=== PATIENT | female | born 1995 | race Caucasian/White ===

== ENCOUNTER 2017-03-24 16:50 | Emergency (ER) | payer OTHER ==
[2017-03-24] MEDS ORDERED: SODIUM CHLORIDE 0.9% 1,000 ML IV STA (17:25)
[2017-03-24] MEDS ORDERED: ACETAMINOPHEN TAB 500 MG TAB PO STA (17:25)
--- NOTE | 2017-03-24 17:31 | ED ---
General Adult HPI - General Chief complaint: ENT Stated complaint: Ear Ache, Headache, Congestion Time Seen by Provider: 03/24/17 17:19 Source: patient, RN notes reviewed Mode of arrival: ambulatory Limitations: no limitations - History of Present Illness Initial comments: 22-year-old female presents to the emergency department with a chief complaint of right ear sore throat congestion. Patient states she's been sick for about 2 -1/2-3 weeks now. Patient states it initially started when her daughter got ill and she thought she just had a virus she went to the Dr. and was told there is a virus. Patient states she continues to feel ill. Patient states now she is getting body aches and increased fatigue. They state that she's been sick for so long that they thought that they should be seen. She states she will follow-up O feverish on and off with this. Patient denies any vomiting or abdominal pain. Patient denies any changes in urination or bowel habits. - Related Data Home Medications Medication Instructions Recorded Confirmed Albuterol Inhaler [Ventolin 2 puff INHALATION RT-Q6H PRN 07/08/14 03/24/17 Inhaler] Acetaminophen Tab [Tylenol Tab] 1,000 mg PO Q6HR PRN 03/24/17 03/24/17 HYDROcodone/APAP 5-325MG [[place] 1 tab PO Q4HR PRN 03/24/17 03/24/17 5-325] Ibuprofen [Motrin] 600 mg PO Q6HR PRN 03/24/17 03/24/17 Previous Rx's Medication Instructions Recorded Amoxicillin 500 mg PO Q8H #21 capsule 03/24/17 Allergies Allergy/AdvReac Type Severity Reaction Status Date / Time bee pollen Allergy Severe Anaphylaxis Verified 03/24/17 17:29 walnut Allergy Severe Anaphylaxis Verified 03/24/17 17:29 medroxyprogesterone acetate AdvReac Nausea & Verified 03/24/17 17:29 [From Depo-Provera] Vomiting Review of Systems ROS Statement: Those systems with pertinent positive or pertinent negative responses have been documented in the HPI. ROS Other: All systems not noted in ROS Statement are negative. Past Medical History Past Medical History: Asthma Additional Past Medical History / Comment(s): current sinus infection, MISCARRIAGE in january History of Any Multi-Drug Resistant Organisms: None Reported Past Surgical History: Adenoidectomy, Ear Surgery, Tonsillectomy Past Psychological History: No Psychological Hx Reported Smoking Status: Never smoker Past Alcohol Use History: None Reported Past Drug Use History: None Reported General Exam - General Exam Comments Initial Comments: General exam: Alert, active, comfortable in no apparent distress Head: Normocephalic Eyes: Normal reaction of pupils, equal size, normal range of extraocular motion Ears: normal external ear canals, pink tympanic membranes with normal cone of light Nose: clear with pink turbinates Throat: no erythema or exudates with normal sized tonsils Neck: no masses, no nuchal rigidity Chest: no chest wall deformity Lungs: equal air entry with no crackles or wheeze CVS: S1 and S2 normal with no audible mumurs, regular rhythm Abdomen: no hepatosplenomegaly, normal bowel sounds, no guarding or rigidity Spine: no scoliosis or deformity Skin: no rashes Neurological: No focal deficits, tone is normal in all 4 extremities Limitations: no limitations Course Vital Signs 03/24/17 03/24/17 17:11 19:18 Temperature 99.0 F 97.8 F Pulse Rate 122 H 95 Respiratory 20 18 Rate Blood Pressure 120/88 105/60 O2 Sat by Pulse 97 98 Oximetry Medical Decision Making - Medical Decision Making 22-year-old female presents with chief complaint of congestion. At this time patient's lab work has been reviewed. This time there is a mildly elevated white blood cell count. There is some white blood cells in the urine. However patient's symptoms are more consistent with upper respiratory type infection. We discussed this and we'll start her on amoxicillin due to the length of time that she is now. We discussed return parameters and follow-up and also questions. He stated the Alex they're in agreement with plan. They will be discharged. - Lab Data Result diagrams: 03/24/17 17:55 03/24/17 17:55 Lab Results 03/24/17 03/24/17 03/24/17 Range/Units 17:55 17:55 17:55 WBC 13.0 H (4.0-11.0) k/uL RBC 5.26 (3.80-5.40) m/uL Hgb 13.5 (11.4-16.0) gm/dL Hct 43.5 (34.0-46.0) % MCV 82.6 (80.0-100.0) fL MCH 25.6 (25.0-35.0) pg MCHC 31.0 (31.0-37.0) g/dL RDW 14.1 (11.5-15.5) % Plt Count 271 (150-450) k/uL Neutrophils % 80 % Lymphocytes % 9 % Monocytes % 7 % Eosinophils % 3 % Basophils % 0 % Neutrophils # 10.4 H (1.3-7.7) k/uL Lymphocytes # 1.1 (1.0-4.8) k/uL Monocytes # 0.9 (0-1.0) k/uL Eosinophils # 0.4 (0-0.7) k/uL Basophils # 0.0 (0-0.2) k/uL Sodium (137-145) mmol/L Potassium (3.5-5.1) mmol/L Chloride (98-107) mmol/L Carbon Dioxide (22-30) mmol/L Anion Gap mmol/L BUN (7-17) mg/dL Creatinine (0.52-1.04) mg/dL Est GFR (MDRD) Af Amer (>60 ml/min/1.73 sqM) Est GFR (MDRD) Non-Af (>60 ml/min/1.73 sqM) Glucose (74-99) mg/dL Calcium (8.4-10.2) mg/dL Total Bilirubin (0.2-1.3) mg/dL AST (14-36) U/L ALT (9-52) U/L Alkaline Phosphatase (38-126) U/L Total Protein (6.3-8.2) g/dL Albumin (3.5-5.0) g/dL Urine Color Urine Appearance (Clear) Urine pH (5.0-8.0) Ur Specific [place] (1.001-1.035) Urine Protein (Negative) Urine Glucose (UA) (Negative) Urine Blood (Negative) Urine Nitrite (Negative) Urine Bilirubin (Negative) Urine Urobilinogen (<2.0) mg/dL Ur Leukocyte Esterase (Negative) Urine RBC (0-5) /hpf Urine WBC (0-5) /hpf Ur Squamous Epith Cells (0-4) /hpf Urine Mucus (None) /hpf Heterophile Antibody Negative (Negative) Influenza Type A RNA Not Detected (Not Detectd) Influenza Type B (PCR) Not Detected (Not Detectd) 03/24/17 03/24/17 Range/Units 17:55 18:58 WBC (4.0-11.0) k/uL RBC (3.80-5.40) m/uL Hgb (11.4-16.0) gm/dL Hct (34.0-46.0) % MCV (80.0-100.0) fL MCH (25.0-35.0) pg MCHC (31.0-37.0) g/dL RDW (11.5-15.5) % Plt Count (150-450) k/uL Neutrophils % % Lymphocytes % % Monocytes % % Eosinophils % % Basophils % % Neutrophils # (1.3-7.7) k/uL Lymphocytes # (1.0-4.8) k/uL Monocytes # (0-1.0) k/uL Eosinophils # (0-0.7) k/uL Basophils # (0-0.2) k/uL Sodium 140 (137-145) mmol/L Potassium 4.1 (3.5-5.1) mmol/L Chloride 102 (98-107) mmol/L Carbon Dioxide 24 (22-30) mmol/L Anion Gap 14 mmol/L BUN 12 (7-17) mg/dL Creatinine 0.66 (0.52-1.04) mg/dL Est GFR (MDRD) Af Amer >60 (>60 ml/min/1.73 sqM) Est GFR (MDRD) Non-Af >60 (>60 ml/min/1.73 sqM) Glucose 83 (74-99) mg/dL Calcium 9.7 (8.4-10.2) mg/dL Total Bilirubin 0.3 (0.2-1.3) mg/dL AST 26 (14-36) U/L ALT 32 (9-52) U/L Alkaline Phosphatase 146 H (38-126) U/L Total Protein 8.1 (6.3-8.2) g/dL Albumin 5.2 H (3.5-5.0) g/dL Urine Color Yellow Urine Appearance Cloudy H (Clear) Urine pH 6.0 (5.0-8.0) Ur Specific [place] 1.027 (1.001-1.035) Urine Protein Trace H (Negative) Urine Glucose (UA) Negative (Negative) Urine Blood Negative (Negative) Urine Nitrite Negative (Negative) Urine Bilirubin Negative (Negative) Urine Urobilinogen <2.0 (<2.0) mg/dL Ur Leukocyte Esterase Moderate H (Negative) Urine RBC 1 (0-5) /hpf Urine WBC 14 H (0-5) /hpf Ur Squamous Epith Cells 7 H (0-4) /hpf Urine Mucus Few H (None) /hpf Heterophile Antibody (Negative) Influenza Type A RNA (Not Detectd) Influenza Type B (PCR) (Not Detectd) - Radiology Data Radiology results: report reviewed, image reviewed Disposition Clinical Impression: Upper respiratory infection Disposition: HOME SELF-CARE Condition: Stable Instructions: Upper Respiratory Infection (ED) Additional Instructions: Please use medication as discussed. Please follow up with family doctor if symptoms have not improved over the next two days. Please return to the emergency room if your symptoms increase or worsen or for any other concerns. Prescriptions: Amoxicillin 500 mg PO Q8H #21 capsule Referrals: Enrique Mendez DO [Primary Care Provider] - 1-2 days Time of Disposition: 19:38
[2017-03-24 18:08] LABS: Basophils % (A) 0 %; CH 26.5; CHCM 32.3; Eosinophils # (A) 0.4 k/uL (0-0.7); Eosinophils % (A) 3 %; HCT 43.5 % (34.0-46.0); HDW 2.42; HGB 13.5 gm/dL (11.4-16.0); Luc % (Auto) 2; Lymphocytes # (A) 1.1 k/uL (1.0-4.8); Lymphocytes % (A) 9 %; MCH 25.6 pg (25.0-35.0); MCV 82.6 fL (80.0-100.0); Mean Platelet Volume 7.4; Monocytes # (A) 0.9 k/uL (0-1.0); Monocytes % (A) 7 %; Neutrophils # (A) 10.4 k/uL (1.3-7.7); Neutrophils % (A) 80 %; RBC 5.26 m/uL (3.80-5.40); RDW 14.1 % (11.5-15.5); WBC (Perox) 13.26
[2017-03-24 18:24] LABS: ALT 32 U/L (9-52); AST 26 U/L (14-36); Alkaline Phosphatase 146 U/L (38-126); Anion Gap 14 mmol/L; Blood Urea Nitrogen 12 mg/dL (7-17); Calcium 9.7 mg/dL (8.4-10.2); Carbon Dioxide 24 mmol/L (22-30); Chloride 102 mmol/L (98-107); Glucose 83 mg/dL (74-99); Non-African American GFR(MDRD) >60 (>60 ml/min/1.73 sqM); Potassium 4.1 mmol/L (3.5-5.1); Sodium 140 mmol/L (137-145); Total Bilirubin 0.3 mg/dL (0.2-1.3); Total Protein 8.1 g/dL (6.3-8.2)
--- NOTE | 2017-03-24 18:45 | XR ---
EXAMINATION TYPE: XR chest 2V DATE OF EXAM: 03/24/2017 COMPARISON: 01/31/2016 HISTORY: Cough and congestion TECHNIQUE: Frontal and lateral views of the chest are obtained. FINDINGS: Heart and mediastinum are normal. Lungs are clear. Diaphragm is normal. Bony thorax appear s normal. IMPRESSION: Normal chest. No change.
[2017-03-24 19:18] VITALS: BP 105/60; PULSE 95; RESP 18; TEMP 97.8
[2017-03-24 19:22] LABS: Appearance,Urine Cloudy (Clear); Bilirubin,Urine Negative (Negative); Glucose,Urine (UA) Negative (Negative); Ketones,Urine 2+ (Negative); Leukocyte Esterase,Urine Moderate (Negative); Mucus,Urine Few /hpf; Nitrite,Urine Negative (Negative); Particle Count 8234; Protein,Urine Trace (Negative); RBC,Urine 1 /hpf (0-5); Specific Gravity,Urine 1.027 (1.001-1.035); Squamous Epithelial Cell,Urine 7 /hpf (0-4); UA Billing (MACRO vs. MICRO) MICRO; Urobilinogen,Urine <2.0 mg/dL (<2.0); WBC,Urine 14 /hpf (0-5)
== END 2017-03-24 20:02 | disposition home or self-care (01) ==
LOC: EC 16:50
DX: J06.9 Acute upper respiratory infection, unspecified (principal); D72.829 Elevated white blood cell count, unspecified; R82.99 Other abnormal findings in urine; Z88.8 Allergy status to other drugs, medicaments and biological substances; Z91.018 Allergy to other foods; Z91.030 Bee allergy status; Z98.890 Other specified postprocedural states
CPT/HCPCS: 36415; 71020; 80053; 81001; 85025; 86308; 87040; 87086; 87502; 96360; 99284

== ENCOUNTER 2017-03-25 20:27 | Inpatient (IN) | payer OTHER ==
[2017-03-25] MEDS ORDERED: ACETAMINOPHEN TAB 500 MG TAB PO STA (20:50)
[2017-03-25] MEDS ORDERED: SODIUM CHLORIDE 0.9% 1,000 ML IV STA ×2 (20:50→23:20)
[2017-03-25] MEDS ORDERED: IBUPROFEN 400 MG TAB PO STA (20:50)
[2017-03-25 21:32] LABS: Basophils # (A) 0.1 k/uL (0-0.2); Basophils % (A) 1 %; CH 25.5; CHCM 32.2; Eosinophils % (A) 0 %; HCT 37.1 % (34.0-46.0); HGB 12.3 gm/dL (11.4-16.0); Luc # (Auto) 0.39; Luc % (Auto) 3; Lymphocytes # (A) 1.2 k/uL (1.0-4.8); Lymphocytes % (A) 9 %; MCH 26.3 pg (25.0-35.0); MCHC 33.1 g/dL (31.0-37.0); MCV 79.5 fL (80.0-100.0); Mean Platelet Volume 7.1; Monocytes # (A) 1.4 k/uL (0-1.0); Monocytes % (A) 10 %; Neutrophils # (A) 10.7 k/uL (1.3-7.7); Neutrophils % (A) 78 %; RBC 4.66 m/uL (3.80-5.40); RDW 13.4 % (11.5-15.5); WBC 13.7 k/uL (4.0-11.0); WBC (Perox) 13.53
[2017-03-25 21:40] LABS: ALT 23 U/L (9-52); AST 20 U/L (14-36); Alkaline Phosphatase 123 U/L (38-126); Anion Gap 14 mmol/L; Blood Urea Nitrogen 11 mg/dL (7-17); Calcium 9.1 mg/dL (8.4-10.2); Carbon Dioxide 21 mmol/L (22-30); Chloride 106 mmol/L (98-107); Glucose 90 mg/dL (74-99); Non-African American GFR(MDRD) >60 (>60 ml/min/1.73 sqM); Potassium 3.8 mmol/L (3.5-5.1); Sodium 141 mmol/L (137-145); Total Bilirubin 0.4 mg/dL (0.2-1.3); Total Protein 6.5 g/dL (6.3-8.2)
[2017-03-25] MEDS ORDERED: RX INFO: IV CONTRAST WAS GIVEN 1 EACH MISC MISCELLANE PRN (21:41)
--- NOTE | 2017-03-25 22:09 | ED ---
General Adult HPI - General Source: patient, RN notes reviewed Mode of arrival: ambulatory Limitations: no limitations <Maisha Ovalle - Last Filed: 03/25/17 23:24> <Bruce Jain - Last Filed: 03/25/17 23:34> - General Chief complaint: Fever Stated complaint: fever Time Seen by Provider: 03/25/17 20:42 - History of Present Illness Initial comments: 22-year-old female presents to the emergency department with a chief complaint of fever. Patient has had this fever for the past few days. She was seen here yesterday some antibiotics. She states the fever came back today. It's been as high as 103. They've been feeding with Tylenol. Patient states she just has diffuse body aches. She has not had any cough cold or runny nose. She has had a little bit of a headache with this as well. She did have some nasal congestion her daughter was ill so she thought maybe she just had a virus but she just is not getting any better. They were concerned due to the fever so they thought they should be evaluated.Patient denies any recent shortness of breath, chest pain, abdominal pain, nausea vomiting, numbness or tingling, dysuria or hematuria, constipation or diarrhea, headaches or visual changes, or any other current symptoms. (Maisha Ovalle) - Related Data Home Medications Medication Instructions Recorded Confirmed Albuterol Inhaler [Ventolin 2 puff INHALATION RT-Q6H PRN 07/08/14 03/24/17 Inhaler] Acetaminophen Tab [Tylenol Tab] 1,000 mg PO Q6HR PRN 03/24/17 03/24/17 HYDROcodone/APAP 5-325MG [[place] 1 tab PO Q4HR PRN 03/24/17 03/24/17 5-325] Ibuprofen [Motrin] 600 mg PO Q6HR PRN 03/24/17 03/24/17 Previous Rx's Medication Instructions Recorded Amoxicillin 500 mg PO Q8H #21 capsule 03/24/17 Allergies Allergy/AdvReac Type Severity Reaction Status Date / Time bee pollen Allergy Severe Anaphylaxis Verified 03/24/17 17:29 walnut Allergy Severe Anaphylaxis Verified 03/24/17 17:29 medroxyprogesterone acetate AdvReac Nausea & Verified 03/24/17 17:29 [From Depo-Provera] Vomiting Review of Systems ROS Other: All systems not noted in ROS Statement are negative. <Maisha Ovalle - Last Filed: 03/25/17 23:24> ROS Other: All systems not noted in ROS Statement are negative. <Bruce Jain - Last Filed: 03/25/17 23:34> ROS Statement: Those systems with pertinent positive or pertinent negative responses have been documented in the HPI. Past Medical History Past Medical History: Asthma Additional Past Medical History / Comment(s): current sinus infection, MISCARRIAGE in january History of Any Multi-Drug Resistant Organisms: None Reported Past Surgical History: Adenoidectomy, Ear Surgery, Tonsillectomy Additional Past Surgical History / Comment(s): ovarian cyst removed, D&C Past Psychological History: No Psychological Hx Reported Smoking Status: Never smoker Past Alcohol Use History: None Reported Past Drug Use History: None Reported <Maisha Ovalle - Last Filed: 03/25/17 23:24> General Exam Limitations: no limitations <Maisha Ovalle - Last Filed: 03/25/17 23:24> <Bruce Jain - Last Filed: 03/25/17 23:34> - General Exam Comments Initial Comments: General: The patient is awake and alert, in no distress, and does not appear acutely ill. Eye: Pupils are equal, round and reactive to light, extra-ocular movements are intact; there is normal conjunctiva bilaterally. No signs of icterus. Ears, nose, mouth and throat: There are moist mucous membranes and no oral lesions. Neck: The neck is supple, there is no tenderness. Cardiovascular: There is a regular rate and rhythm. No murmur, rub or gallop is appreciated. Respiratory: Lungs are clear to auscultation, respirations are non-labored, breath sounds are equal. No wheezes, stridor, rales, or rhonchi. Gastrointestinal: Soft, non-distended, non-tender abdomen without masses or organomegaly noted. There is no rebound or guarding present. No CVA tenderness. Bowel sounds are unremarkable. Back: There is no tenderness to palpation in the midline. There is no obvious deformity. No rashes noted. Musculoskeletal: Normal ROM, no tenderness, There is no pedal edema. There is no calf tenderness or swelling. Sensation intact. Pulses equal bilaterally 2+. Neurological: CN II-XII intact, There are no obvious motor or sensory deficits. Coordination appears grossly intact. Speech is normal. Skin: Skin is warm and dry and no rashes or lesions are noted. Psychiatric: Cooperative, appropriate mood & affect, normal judgment. (Maisha Ovalle) Medical Decision Making - Lab Data Result diagrams: 03/25/17 21:10 03/25/17 21:10 <Maisha Ovalle - Last Filed: 03/25/17 23:24> - Lab Data Result diagrams: 03/25/17 21:10 03/25/17 21:10 <Bruce Jain - Last Filed: 03/25/17 23:34> - Medical Decision Making 22-year-old female presents emergency room chief complaint of fever and total body aches. At this time patient's urine for x-ray does show some contamination. Patient's workup was otherwise not show any acute findings for the patient's fever. This time there is suspicion for possible viral. We are pending a urine culture. We'll admit the patient with IV Rocephin we will continue her care patient. Patient is negative plan all questions have been answered. She will be admitted at this time. (Maisha Ovalle) Medical decision-making. The patient has had on-again off-again complaints from upper respiratory to low back pain. Yesterday she had some evidence of urinary tract infection. The patient requested an antibiotic that she get for free she was placed on amoxicillin. She returns today because of continued discomfort. The patient's been sick for approximately 3 weeks. The plant this time is for the patient be admitted with diagnosis of pyelonephritis. She's been started on Rocephin. Examination of this time finds throat to be clear no cervical lymphadenopathy no headache no meningeal irritation. Chest is clear heart within normal limits. No murmur. Abdomen benign. Patient is mildly diaphoretic complains of mild ache and pain to her body. Influenza test done yesterday was negative. No skin rashes. Dr. Jain Case discussed Dr. La, patient admitted his service. Dr. Jain (Bruce Jain) - Lab Data Lab Results 03/25/17 03/25/17 03/25/17 Range/Units 20:51 21:10 21:10 WBC 13.7 H (4.0-11.0) k/uL RBC 4.66 (3.80-5.40) m/uL Hgb 12.3 (11.4-16.0) gm/dL Hct 37.1 (34.0-46.0) % MCV 79.5 L (80.0-100.0) fL MCH 26.3 (25.0-35.0) pg MCHC 33.1 (31.0-37.0) g/dL RDW 13.4 (11.5-15.5) % Plt Count 236 (150-450) k/uL Neutrophils % 78 % Lymphocytes % 9 % Monocytes % 10 % Eosinophils % 0 % Basophils % 1 % Neutrophils # 10.7 H (1.3-7.7) k/uL Lymphocytes # 1.2 (1.0-4.8) k/uL Monocytes # 1.4 H (0-1.0) k/uL Eosinophils # 0.0 (0-0.7) k/uL Basophils # 0.1 (0-0.2) k/uL Sodium 141 (137-145) mmol/L Potassium 3.8 (3.5-5.1) mmol/L Chloride 106 (98-107) mmol/L Carbon Dioxide 21 L (22-30) mmol/L Anion Gap 14 mmol/L BUN 11 (7-17) mg/dL Creatinine 0.60 (0.52-1.04) mg/dL Est GFR (MDRD) Af Amer >60 (>60 ml/min/1.73 sqM) Est GFR (MDRD) Non-Af >60 (>60 ml/min/1.73 sqM) Glucose 90 (74-99) mg/dL Plasma Lactic Acid Edmundo 0.6 L (0.7-2.0) mmol/L Calcium 9.1 (8.4-10.2) mg/dL Total Bilirubin 0.4 (0.2-1.3) mg/dL AST 20 (14-36) U/L ALT 23 (9-52) U/L Alkaline Phosphatase 123 (38-126) U/L C-Reactive Protein >90.0 H (<10.0) mg/L Total Protein 6.5 (6.3-8.2) g/dL Albumin 4.1 (3.5-5.0) g/dL Disposition Time of Disposition: 23:25 Decision Date: 03/25/17 Decision Time: 23:25 <Maisha Ovalle - Last Filed: 03/25/17 23:24> <Bruce Jain - Last Filed: 03/25/17 23:34> Clinical Impression: Acute pyelonephritis Disposition: ADMITTED IP TO THIS [facility] Condition: Stable Referrals: Enrique Mendez DO [Primary Care Provider] - 1-2 days
--- NOTE | 2017-03-25 22:51 | CT ---
EXAM: CT Abdomen and Pelvis With Intravenous Contrast CLINICAL HISTORY: Reason: Pain TECHNIQUE: Axial computed tomography images of the abdomen and pelvis with intravenous contrast. DLP is 991 mGy-cm. 100 mL of Omni [address] was administered [address]. [address] CT exam was performed using one or more of the following dose reduction techniques: automated exposure control, adjustment of the mA and/or kV according to patient size, and/or use of iterative reconstruction technique. COMPARISON: No relevant prior studies available. FINDINGS: Lower thorax: No acute findings. ABDOMEN: Liver: Unremarkable. No mass. Gallbladder and bile ducts: Unremarkable. No calcified stones. No ductal dilation. Pancreas: Unremarkable. No mass. No ductal dilation. Spleen: Unremarkable. No splenomegaly. Adrenals: Unremarkable. No mass. Kidneys and ureters: Unremarkable. No solid mass. No hydronephrosis. Stomach and bowel: Unremarkable. No obstruction. No mucosal thickening. Appendix: No findings to suggest acute appendicitis. PELVIS: Bladder: Unremarkable. No mass. Reproductive: Unremarkable as visualized. ABDOMEN and PELVIS: Intraperitoneal space: Unremarkable. No free air. No significant fluid collection. Bones/joints: No acute fracture. No dislocation. Soft tissues: Unremarkable. Vasculature: Unremarkable. No abdominal aortic aneurysm. Lymph nodes: Unremarkable. No enlarged lymph nodes. IMPRESSION: Normal abdomen and pelvis CT.
[2017-03-25] MEDS ORDERED: NALOXONE 0.4 MG/ML 1 ML VIAL IV PRN (23:25)
[2017-03-26] MEDS: SODIUM CHLORIDE 0.9% 1,000 ML IV SCH ×3 (00:06→20:31)
[2017-03-26] MEDS: IBUPROFEN 400 MG TAB PO PRN ×2 (06:43→13:30)
[2017-03-26 07:10] LABS: Basophils % (A) 0 %; CH 26.1; CHCM 30.7; Eosinophils # (A) 0.1 k/uL (0-0.7); Eosinophils % (A) 1 %; HCT 38.4 % (34.0-46.0); HDW 2.42; HGB 11.6 gm/dL (11.4-16.0); Hypochromasia Slight; Luc % (Auto) 3; Lymphocytes # (A) 1.5 k/uL (1.0-4.8); Lymphocytes % (A) 12 %; MCH 25.8 pg (25.0-35.0); MCHC 30.3 g/dL (31.0-37.0); Mean Platelet Volume 7.5; Monocytes # (A) 1.2 k/uL (0-1.0); Monocytes % (A) 10 %; Neutrophils # (A) 9.2 k/uL (1.3-7.7); Neutrophils % (A) 74 %; RBC 4.49 m/uL (3.80-5.40); RDW 14.2 % (11.5-15.5); WBC 12.4 k/uL (4.0-11.0)
[2017-03-26 07:22] LABS: MCV 85.4 fL (80.0-100.0)
[2017-03-26] MEDS: ONDANSETRON 4 MG/2 ML VIAL IVP PRN (07:24)
[2017-03-26 07:27] LABS: ALT 17 U/L (9-52); AST 20 U/L (14-36); Alkaline Phosphatase 110 U/L (38-126); Anion Gap 12 mmol/L; Blood Urea Nitrogen 8 mg/dL (7-17); Calcium 8.6 mg/dL (8.4-10.2); Carbon Dioxide 17 mmol/L (22-30); Chloride 112 mmol/L (98-107); Glucose 52 mg/dL (74-99); Non-African American GFR(MDRD) >60 (>60 ml/min/1.73 sqM); Potassium 3.9 mmol/L (3.5-5.1); Sodium 141 mmol/L (137-145); Total Bilirubin 0.4 mg/dL (0.2-1.3); Total Protein 5.6 g/dL (6.3-8.2)
[2017-03-26] MEDS: HYDROcodone/APAP 5-325MG 1 EACH TAB PO PRN ×2 (08:10→15:34)
[2017-03-26] MEDS: ACETAMINOPHEN TAB 325 MG TAB PO PRN ×2 (11:15→20:26)
[2017-03-26 12:16] LABS: C Reactive Protein 153.8 mg/L (<10.0)
[2017-03-26] MEDS ORDERED: VANCOMYCIN 1,000 MG in SODIUM CHLORIDE 0.9% 250 ML IVPB STA (12:51)
--- NOTE | 2017-03-26 13:14 | CT ---
EXAMINATION TYPE: CT brain wo con DATE OF EXAM: 03/26/2017 COMPARISON: NONE HISTORY: Severe FIORE, possible meningitis CT DLP: 1071.7 mGycm. Automated Exposure Control for Dose Reduction was Utilized. TECHNIQUE: CT scan of the head is performed without contrast. FINDINGS: There is no acute intracranial hemorrhage, mass effect, or midline shift identified. The ventricles and sulci are within normal limits in size. The globes are intact and the visualized sin uses are remarkable for inflammatory change involving the ethmoids, sphenoid sinus, cerumen likely pr esent in the external auditory canals.. IMPRESSION: No acute intracranial hemorrhage, mass effect, or midline shift is seen.
[2017-03-26] MEDS ORDERED: fentaNYL (PF) 50 MCG/ML 2 ML AMP IVP ONE ×2 (14:40)
[2017-03-26] MEDS ORDERED: MIDAZOLAM 2 MG/2 ML VIAL IVP ONE (14:40)
[2017-03-26] MEDS ORDERED: IV FLUID CONTINUATION 1,000 ML IV ONE (14:53)
--- NOTE | 2017-03-26 14:55 | P.PCN ---
Date of Procedure: 03/26/17 Preoperative Diagnosis: Postoperative Diagnosis: Procedure(s) Performed: Procedure=1-lumbar puncture . Preoperative diagnoses= meningitis Postoperative diagnosis= meningitis Anesthesia= IV sedation with Versed 2 mg and fentanyl 100 mcg ,and local lidocaine infiltration 1% 2 mL for skin and subcu infiltration. Condition= gaurded Complications=none. Indication for the procedure= patient with a history of fever ,and total body aches, and headache, symptoms suggestive of meningitis, and she was referred to have a lumbar puncture for diagnostic study procedure risk and benefits and alternatives discussed with the patient and she agreed with the preceding, Description of the procedure= patient in the procedure room sitting position and monitors applied, the back prepped with chlorhexidine -3, sterile technique , local infiltration of the skin and subcu interstitial with lidocaine 1% 2 mL, then 22-gauge quickie Needle advanced slowly at L4 5 interlaminar space, the cerebrospinal fluid was clear, and no heme no paresthesia, a total of 10 mL of clear cerebrospinal fluid collected in 4 different tubes, the needle removed , Band-Aid applied , patient tolerated the procedure well without any complications, and further management as per her neurologist Implants: Indications for Procedure: Operative Findings: Description of Procedure:
[2017-03-26] MEDS: cefTRIAXone 2,000 MG in SODIUM CHLORIDE 0.9% 100 ML IVPB SCH ×2 (15:34→20:49)
[2017-03-26 15:39] LABS: Appearance,CSF Clear
[2017-03-26 15:44] LABS: Glucose,CSF 66 mg/dL (40-70)
[2017-03-26] MEDS ORDERED: KETOROLAC 30 MG/ML 1 ML VIAL IVP STA (16:34)
--- NOTE | 2017-03-26 16:34 | P.HPIM ---
History of Present Illness H&P Date: 03/26/17 [place] 22-year-old female who was in good health until 5 days and will come to the hospital with complaints of generalized weakness. Patient did have some urinary urgency at that time patient was diagnosed with a pyelonephritis was started on amoxicillin and discharged home patient continues to have intermittent fevers had a T-max oh 103 Fahrenheit came in to the hospital with ongoing care. Patient was noted to have a group B strep infection in the urine. Patient really denies having any bilateral flank pain States to have headaches photophobia generalized weakness. Patient does have a 9-month-old child however denies having any exposure to any sick contacts No recent travel history is reported No IV drug use is reported Is up-to-date immunizations Patient was noted to have a significantly elevated CRP states that she has had a headache for the last 3 days dull diffuse no significant change in vision is reported However reports photophobia at this time Review of Systems All systems: negative (Noted in HPI) Past Medical History Past Medical History: Asthma Additional Past Medical History / Comment(s): Current sinus infection, MISCARRIAGE in january, and 9 months post-. History of Any Multi-Drug Resistant Organisms: None Reported Past Surgical History: Adenoidectomy, Ear Surgery, Tonsillectomy Additional Past Surgical History / Comment(s): ovarian cyst removed, D&C Past Psychological History: No Psychological Hx Reported Smoking Status: Never smoker Past Alcohol Use History: None Reported Past Drug Use History: None Reported - Past Family History Mother Family Medical History: Skin Disorder Additional Family Medical History / Comment(s): Scleroderma, Morphea Medications and Allergies Home Medications Medication Instructions Recorded Confirmed Type Albuterol Inhaler [Ventolin 2 puff INHALATION RT-Q6H PRN 07/08/14 03/26/17 History Inhaler] Acetaminophen Tab [Tylenol Tab] 1,000 mg PO Q6HR PRN 03/24/17 03/26/17 History Ibuprofen [Motrin] 600 mg PO Q6HR PRN 03/24/17 03/26/17 History Allergies Allergy/AdvReac Type Severity Reaction Status Date / Time bee pollen Allergy Severe Anaphylaxis Verified 03/26/17 08:05 walnut Allergy Severe Anaphylaxis Verified 03/26/17 08:05 latex Allergy Rash/Hives Verified 03/26/17 08:05 medroxyprogesterone acetate AdvReac Nausea & Verified 03/26/17 08:05 [From Depo-Provera] Vomiting Physical Exam Vitals: Vital Signs Temp Pulse Pulse Pulse Resp BP BP 03/26/17 15:24 101.7 F H 104 H 20 119/70 03/26/17 15:15 93 14 110/61 03/26/17 15:03 92 14 108/59 03/26/17 14:54 98 F 97 14 109/59 03/26/17 14:35 110 H 22 118/66 03/26/17 13:17 102.6 F H 112 H 19 93/58 03/26/17 09:22 97.8 F 92 19 110/61 03/26/17 02:15 97.3 F L 76 16 101/62 03/26/17 00:30 97.8 F 74 18 108/74 03/25/17 23:19 98.8 F 79 16 107/60 03/25/17 21:52 99.3 F 94 14 109/56 03/25/17 20:36 101.4 F H 121 H 20 108/60 Pulse Ox 03/26/17 15:24 100 03/26/17 15:15 94 L 03/26/17 15:03 95 03/26/17 14:54 94 L 03/26/17 14:35 96 03/26/17 13:17 100 03/26/17 09:22 98 03/26/17 02:15 98 03/26/17 00:30 99 03/25/17 23:19 98 03/25/17 21:52 96 03/25/17 20:36 97 Intake and Output 03/26/17 03/26/17 03/26/17 06:59 14:59 22:59 Intake Total 2440 300 Output Total 800 Balance 2440 -500 Intake: IV 300 Amount of Fluid Infused ( 1200 ml) Intake, IV Titration 1000 Amount Sodium Chloride 0.9% 1, 1000 000 ml @ 999 mls/hr IV . Q1H1M [facility] Rx#:[id number] Oral 240 Output: Urine 800 Other: Voiding Method Toilet # Voids 1 400 Weight 58 kg Physical exam Gen. appearance oriented 3 in no distress Neck is supple no JVD Lungs good air entry clear to auscultation no rhonchi or wheezing Heart S1-S2 heard regular rate and rhythm no murmurs appreciated Abdomen is soft nontender no organomegaly bowel sounds are intact Neurologically cranial nerves II-12 grossly intact some neck stiffness is noted. kernigs Is positive Skin no abnormalities appreciated Results CBC & Chem 7: 03/26/17 06:52 03/26/17 06:52 Labs: Abnormal Lab Results - Last 24 Hours (Table) 03/25/17 03/25/17 03/25/17 Range/Units 20:51 21:10 21:10 WBC 13.7 H (4.0-11.0) k/uL MCV 79.5 L (80.0-100.0) fL MCHC (31.0-37.0) g/dL Neutrophils # 10.7 H (1.3-7.7) k/uL Monocytes # 1.4 H (0-1.0) k/uL Chloride (98-107) mmol/L Carbon Dioxide 21 L (22-30) mmol/L Glucose (74-99) mg/dL Plasma Lactic Acid Edmundo 0.6 L (0.7-2.0) mmol/L C-Reactive Protein 153.8 H (<10.0) mg/L Total Protein (6.3-8.2) g/dL Albumin (3.5-5.0) g/dL 03/26/17 03/26/17 Range/Units 06:52 06:52 WBC 12.4 H (4.0-11.0) k/uL MCV (80.0-100.0) fL MCHC 30.3 L (31.0-37.0) g/dL Neutrophils # 9.2 H (1.3-7.7) k/uL Monocytes # 1.2 H (0-1.0) k/uL Chloride 112 H (98-107) mmol/L Carbon Dioxide 17 L (22-30) mmol/L Glucose 52 L (74-99) mg/dL Plasma Lactic Acid Edmundo (0.7-2.0) mmol/L C-Reactive Protein (<10.0) mg/L Total Protein 5.6 L (6.3-8.2) g/dL Albumin 3.4 L (3.5-5.0) g/dL Thrombosis Risk Factor Assmnt - Choose All That Apply Any of the Below Risk Factors Present?: No Other Risk Factors: No Other congenital or acquired thrombophilia - If yes, enter type in comment: No Thrombosis Risk Factor Assessment Level: Very Low Risk Assessment and Plan Plan: #1 fever of unknown origin Rule out meningitis Plan Patient was partially treated with antibiotics We'll obtain a stat spinal tap We'll be started on Rocephin 2 g every 12 hours and vancomycin Stat computed tomography scan of the head will be done Pain control No significant lymphadenopathy is appreciated However a flu was done which is negative We'll obtain a heterophile antibody as well We'll have ID evaluate the patient if patient does not improve.
[2017-03-26] MEDS: HYDROmorphone 1 MG/ML 1 ML SYRINGE IVP PRN ×2 (16:38→20:27)
[2017-03-27] MEDS: HYDROmorphone 1 MG/ML 1 ML SYRINGE IVP PRN ×6 (00:04→22:51)
[2017-03-27] MEDS: VANCOMYCIN 1,000 MG in SODIUM CHLORIDE 0.9% 250 ML IVPB SCH ×2 (00:07→08:53)
[2017-03-27] MEDS: HYDROcodone/APAP 5-325MG 1 EACH TAB PO PRN ×2 (02:19→10:06)
[2017-03-27] MEDS: diphenhydrAMINE 25 MG CAP PO PRN ×4 (02:19→22:57)
[2017-03-27 04:29] LABS: Appearance,Urine Clear (Clear); Bilirubin,Urine Negative (Negative); Glucose,Urine (UA) Negative (Negative); Ketones,Urine 3+ (Negative); Leukocyte Esterase,Urine Negative (Negative); Nitrite,Urine Negative (Negative); Protein,Urine Trace (Negative); Specific Gravity,Urine 1.019 (1.001-1.035); UA Billing (MACRO vs. MICRO) CHEM; Urobilinogen,Urine <2.0 mg/dL (<2.0)
[2017-03-27] MEDS: IBUPROFEN 400 MG TAB PO PRN ×2 (06:05)
[2017-03-27] MEDS: SODIUM CHLORIDE 0.9% 1,000 ML IV SCH ×2 (09:00→18:53)
[2017-03-27] MEDS: ONDANSETRON 4 MG/2 ML VIAL IVP PRN ×2 (09:21→17:50)
[2017-03-27] MEDS: cefTRIAXone 2,000 MG in SODIUM CHLORIDE 0.9% 100 ML IVPB SCH (11:06)
[2017-03-27] MEDS ORDERED: DIAZEPAM 2 MG TAB PO STA (11:26)
[2017-03-27] MEDS: KETOROLAC 30 MG/ML 1 ML VIAL IVP SCH ×2 (12:50→18:45)
--- NOTE | 2017-03-27 20:03 | P.PN ---
<Arielle Cabrera - Last Filed: 03/27/17 19:42> Progress Note - Text DATE OF SERVICE: 03/27/2017 PRESENTING COMPLAINT: Fever/headache/back pain INTERVAL HISTORY: 22-year-old female presents general malaise weakness with fever, has had it for the past few days. Had some urinary urgency diagnosed with pyelonephritis started on amoxicillin and discharged home, however continues to have intermittent fevers with T-max of 103 Fahrenheit. Spinal tap performed on 03/26 with initiation of Rocephin and vancomycin. 03/27/2017: Patient seen in follow-up, complains of excruciating lower lumbar and sacral back pain, roughly about where they did a lumbar puncture. Patient does also complain of a severe headache and is unable to move off of the bed screaming and crying in pain. We consulted anesthesia, and orthospine for their input. Patient is tolerating her diet eating about 50%, unable to ambulate without assistance due to the pain. Last BM was 03/25/2017 REVIEW OF SYSTEMS: Done for constitutional ,cardiovascular, GI, pulmonary with relevant findings as above. CURRENT MEDICATIONS [place], ceftriaxone, diphenhydramine, Dilaudid, Motrin, Toradol, Zofran. PHYSICAL EXAM VITAL SIGNS: Temperature 97.7, pulse 74, respiratory rate 20, blood pressure 108/74, oxygen saturation 99% on room air. GENERAL APPEARANCE: Lying in bed, in distress looks uncomfortable. EYES: Pupils equal. Conjunctiva normal. NECK: JVD not raised. Mass not palpable. RESPIRATORY: Respiratory effort normal. Lungs clear to auscultation. CARDIOVASCULAR: First and second sounds normal. No edema. ABDOMEN: Soft. Liver and spleen not palpable. No tenderness. No mass palpable. PSYCHIATRY: Alert and oriented x3. Mood and affect tearful, in pain. MUSCULOSKELETAL: Tenderness noted to the spinal column at the lumbar and sacral regions, directly to the spine as well as the areas on either side no swelling noted. General body aches. NEUROLOGIC: No numbness or tingling to the extremities, unable to do straight leg raises bilaterally without pain. Movement of legs and arms creates spinal pain that moves into the head. INVESTIGATIONS: Urine culture: Pending Urinalysis: Trace protein, positive urine ketones CSF fluid: No organisms seen, no white blood cells seen. No growth after 24 hours. ASSESSMENT: -Fever of unknown origin -Viral or bacterial meningitis, cultures negative -Lumbar/sacral spine pain PLAN: Cultures are negative thus far, infectious disease is following, continue antibiotic therapy. No fever since 3:00 yesterday however has had several low- grade fevers. Continues to have back pain and head pain consults to orthospine , and anesthesia in light of the recent lumbar puncture. We'll continue to follow closely TOW DRIVER statement: Patient was seen and examined by nurse practitioner Arielle Cabrera and all elements of the case discussed with attending Dr. Echols <Mo Echols - Last Filed: 03/28/17 21:49> Progress Note - Text Date of service 03/27/2017 Attending note: Patient was seen and examined by me. Discussed with my nurse practitioner Ms. Cabrera. This patient has not been feeling well for a few days. Patient is a 9-month- old baby had been sick got better then patient became sick. Patient is an asthmatic. Has not been taking her Singulair and uses inhalers intermittently. Patient works at [employer]. Started off with feeling stuffy, ear symptoms some headaches. Got a bit better then became worse after getting some antibiotics from the ER. Having more headaches aching all over muscles lower back. Had lumbar puncture-CSF appears to be benign. Dr. Covarrubias from infectious disease on the case. Denied any urinary symptoms. Symptoms lasted for about 2 weeks. Also had some neck pain. No photophobia. On examination: Low-grade fever, lungs-clear to auscultation, cardiovascular first seconds are normal, abdomen-soft nontender Investigations: Labs noted. Assessment and plan: This appears to be a acute severe viral syndrome, possibly being contacted contracted from her baby. Being an asthmatic it manifested in a severe form, with some symptoms of meningism. Empirically on antibiotics. Care discussed with the patient and mother. Await further input from ID. Element of spinal headache possible. Patient encouraged to increase oral intake. Heating pad for the lower back.
--- NOTE | 2017-03-27 20:44 | XR ---
EXAMINATION TYPE: XR lumbar spine with bend/flex DATE OF EXAM: 03/27/2017 COMPARISON: NONE HISTORY: Back pain TECHNIQUE: 7 views FINDINGS: There is slight levoscoliosis. Disc spaces are normal. Posterior elements are intact. Flexion and extension views show no sign of i nstability. Sacroiliac joints appear normal. CONCLUSION: Very slight levoscoliosis. No sign of instability. Otherwise negative exam.
[2017-03-28] MEDS: KETOROLAC 30 MG/ML 1 ML VIAL IVP SCH ×4 (02:38→18:22)
[2017-03-28] MEDS: ALBUTEROL NEBULIZED 2.5 MG/3 ML INHALATION PRN ×4 (03:44→17:29)
[2017-03-28] MEDS: ONDANSETRON 4 MG/2 ML VIAL IVP PRN ×2 (06:22→11:31)
[2017-03-28 06:31] LABS: Anion Gap 11 mmol/L; Blood Urea Nitrogen 6 mg/dL (7-17); Calcium 8.2 mg/dL (8.4-10.2); Carbon Dioxide 20 mmol/L (22-30); Chloride 108 mmol/L (98-107); Glucose 59 mg/dL (74-99); Non-African American GFR(MDRD) >60 (>60 ml/min/1.73 sqM); Potassium 3.6 mmol/L (3.5-5.1); Sodium 139 mmol/L (137-145)
[2017-03-28] MEDS ORDERED: VANCOMYCIN TROUGH DUE 1 EACH MISC MISCELLANE ONE (07:00)
--- NOTE | 2017-03-28 07:58 | P.CONS ---
History of Present Illness - Reason for Consult Consult date: 03/28/17 - History of Present Illness this is 22 years old female, admitted to [facility], but it to fever and generalized weakness and severe headache, and suspicion for meningitis and diagnostic lumbar puncture was requested,Lumbar puncture was done 03/26/2017 , and patient continued severe low back pain, the area of the lumbar puncture, which is intractable increases with any movement, the patient had severe headache ,continuous headache, is not positional headache, and vomiting Past Medical History Past Medical History: Asthma Additional Past Medical History / Comment(s): Current sinus infection, MISCARRIAGE in january, and 9 months post-. History of Any Multi-Drug Resistant Organisms: None Reported Past Surgical History: Adenoidectomy, Ear Surgery, Tonsillectomy Additional Past Surgical History / Comment(s): ovarian cyst removed, D&C Past Psychological History: No Psychological Hx Reported Smoking Status: Never smoker Past Alcohol Use History: None Reported Past Drug Use History: None Reported - Past Family History Mother Family Medical History: Skin Disorder Additional Family Medical History / Comment(s): Scleroderma, Morphea Medications and Allergies Home Medications Medication Instructions Recorded Confirmed Type Albuterol Inhaler [Ventolin 2 puff INHALATION RT-Q6H PRN 07/08/14 03/26/17 History Inhaler] Acetaminophen Tab [Tylenol Tab] 1,000 mg PO Q6HR PRN 03/24/17 03/26/17 History Ibuprofen [Motrin] 600 mg PO Q6HR PRN 03/24/17 03/26/17 History Allergies Allergy/AdvReac Type Severity Reaction Status Date / Time bee pollen Allergy Severe Anaphylaxis Verified 03/26/17 08:05 walnut Allergy Severe Anaphylaxis Verified 03/26/17 08:05 latex Allergy Rash/Hives Verified 03/26/17 08:05 medroxyprogesterone acetate AdvReac Nausea & Verified 03/26/17 08:05 [From Depo-Provera] Vomiting Physical Exam Vitals: Vital Signs Temp Pulse Pulse Pulse Resp BP BP 03/28/17 06:54 90 16 03/28/17 04:00 98.7 F 87 18 122/87 03/28/17 03:53 80 03/28/17 03:45 80 03/27/17 20:17 98.6 F 76 20 119/69 03/27/17 18:54 99.2 F 03/27/17 17:49 98.9 F 03/27/17 16:30 98.4 F 82 16 120/81 03/27/17 10:38 100.1 F H 84 16 122/70 03/27/17 08:11 97.7 F 74 20 108/74 Pulse Ox 03/28/17 06:54 03/28/17 04:00 94 L 03/28/17 03:53 03/28/17 03:45 03/27/17 20:17 95 03/27/17 18:54 03/27/17 17:49 03/27/17 16:30 97 03/27/17 10:38 98 03/27/17 08:11 99 Intake and Output 03/27/17 03/28/17 03/28/17 22:59 06:59 14:59 Intake Total 500 Output Total 360 200 Balance 140 -200 Intake: Intake, IV Titration 500 Amount Sodium Chloride 0.9% 1, 500 000 ml @ 100 mls/hr IV . Q10H [facility] Rx#:[id number] Output: Urine 300 200 Emesis 60 Other: Voiding Method Toilet Toilet # Voids 1 # Emeses 1 Physical Examinations : 1-Constitutiona : Cooperative , not in acute distress . 2-HEENT : nech ; supple , no Lymphadenopathy , normal thyroid size . eyes : no ptosis , no icterus, no photophobia . ENT : normal of hearing , normal oropharynx , no Thrush . 3- Respiratory : Chest clear to auscultations Bilaterally , no wheezing , no Rhonchi . 4- Cardiovascular : regular rate and rhythem , S1 , S2 , no S3 , no S4. 5- Gastrointestinal : abdomen soft no tenderness , bowel sounds positive all four quadrents , no organomegally . 6- Genitourinary : [place] . 7- neurologic : Cranial nerve II to XII intact , no focal neurological deffecit . 8-psychatric : alert , oriented X 3 , appropriate affect , intact judgment and insight . 9-Lymphatic : no Lymphadenopathy . 10- musculoskeltal : . , Lumber spine = normal moter stegnth lower extremities ,thigh and legs .5/5 deep tendon reflexes : normal Knee Jerk , normal ankle Jerk . positive lumber facet Loading Test strait leg raising test positive at 30 degree , RT ,LT , Fabere test positive RT and positive LT . Sever tenderness over the lumbar paravertebral muscles Results CBC & Chem 7: 03/26/17 06:52 03/28/17 05:47 Labs: Abnormal Lab Results - Last 24 Hours (Table) 03/28/17 Range/Units 05:47 Chloride 108 H (98-107) mmol/L Carbon Dioxide 20 L (22-30) mmol/L BUN 6 L (7-17) mg/dL Glucose 59 L (74-99) mg/dL Calcium 8.2 L (8.4-10.2) mg/dL Microbiology - Last 24 Hours (Table) 03/26/17 14:45 CSF Gram Stain - Preliminary Cerebral Spinal Fluid CSF Culture - Preliminary 03/27/17 04:00 Urine Culture - Preliminary Urine,Clean Catch Comments: x ray of the lumbar spine no acute abnormalities Assessment and Plan Plan: assessment and plan = severe intractable low back pain exacerbated after lumbar puncture, recommend MRI of the lumbar spine to rule out any hematoma in the lumbar spine, continue Toradol 30 mg IV every 6 hours continue Dilaudid IV 1 mg every 3 hours when necessary, start patient on Flexeril 10 mg every 8 hours Time with Patient: Less than 30
[2017-03-28] MEDS ORDERED: cefTRIAXone 1,000 MG in SODIUM CHLORIDE 0.9% 100 ML IVPB SCH (09:00)
[2017-03-28 09:27] LABS: Glucose,Whole Blood 69 mg/dL (75-99)
--- NOTE | 2017-03-28 09:52 | CONS ---
DATE OF SERVICE: 03/27/2017 REASON FOR CONSULTATION: Pyelonephritis. HISTORY OF PRESENT ILLNESS: The patient is a 22-year-old female who presented to the emergency room with chief complaint of off and on fever that has been going on for almost 3 weeks now. The patients daughter has been sick and the patient thought she may have contracted her illness. In the outpatient evaluation it was thought more likely a viral illness and being treated symptomatically. The patient was seen in the emergency room at this facility on the initially and at that time the patient did have slightly positive urinalysis. Chest x-ray was negative. She was discharged home on oral amoxicillin. However, the patient presented back within 24 hours with persistent fever as high as 103 degrees Fahrenheit. The patient has been complaining of headache, mostly throbbing, 7 to 8 out of 10 and no radiation. Some sore throat and pain in left ear, but no drainage. No chest pain, shortness of breath or cough. No abdominal pain or any diarrhea. Patient did have CT of abdomen and pelvis that was reported as negative for any acute illness. She did have an LP done by Anesthesia that was relatively negative with no WBC. Protein and glucose were normal Patient was started on vancomycin and Rocephin ID was consulted last night for further recommendations regarding antibiotic therapy. REVIEW OF SYSTEMS: CONSTITUTIONAL: Positive for weakness along with fever. EYES: No complaint. ENT: As per HPI. RESPIRATORY: No complaint. CARDIOVASCULAR: No complaint. GENITOURINARY: No complaint. GASTROINTESTINAL: No complaint. MUSCULOSKELETAL: No complaint. INTEGUMENTARY: No complaint. PSYCHOLOGICAL: No complaint. ENDOCRINE: No complaint. NEUROLOGICAL: No complaint. PAST MEDICAL HISTORY: Significant for asthma, sinus infection, and ( ). PAST SURGICAL HISTORY: Adenoidectomy, tonsillectomy and ear surgery, ovarian cyst removal, D&C. SOCIAL HISTORY: No history of smoking, drinking or any drug use. FAMILY HISTORY: No pertinent findings noticed. ALLERGIES: LATEX, MEDROXYPROGESTERONE. Medications include the patient is currently on Tylenol, [place], Rocephin 2 grams q.12. She is on vancomycin, pharmacy to dose. Benadryl, Dilaudid, Motrin, Toradol, Narcan, Zofran. On examination: Blood pressure 120/81 with pulse 82. Temperature 98.4. T-max is 101. 7. She is 97% on room air. General description is a young female lying in bed in no distress. HEENT examination shows no pallor or scleral icterus. Oral mucous membrane is moist. Unfortunately pharynx could not be examined. The patient did have a poor gag reflex and unable to ( ) limiting the examination of tympanic membrane. NECK: Trachea is central. No thyromegaly. LUNGS: Unlabored breathing. Clear to auscultation anteriorly. No wheeze or crackles. HEART: S1, S2 regular rate and rhythm. ABDOMEN: Soft, no tenderness. No guarding or rigidity. EXTREMITIES: No edema feet. SKIN: No rash or mass palpable. NEUROLOGICAL: Patient is awake, alert, oriented x3. Mood and affect normal. No neck rigidity. LABS: Hemoglobin 11.3, white count 12.4, on admission it was 13.7 with BUN of 8 , creatinine of 0.54. Urinalysis done on this admission last night, this morning is negative; however, the urinalysis on 03/24 was slightly positive. Cultures did show group B strep. ( ) no white cells. Glucose 66, protein is 29. Chest x-ray was negative. DIAGNOSTIC IMPRESSION AND PLAN: Patient admitted to the hospital with fever, elevated white count with negative lumbar puncture. Patient with possibly viral syndrome involving the upper respiratory tract or urinary tract infection as the patient did have a positive urinalysis on admission to this hospital. Clinically doubt meningitis with no neck rigidity and negative CSF examination. Patient now with more headache that could be related to spinal tap. Abdomen was soft on clinical examination and CT was negative. Chest x-ray reported to be negative. PLAN: 1. We will discontinue the vancomycin. 2. Will cut back on the Rocephin to 1 gram IV piggyback daily. 3. Will follow up on clinical condition and cultures to further adjust medications if needed. Thank you for this consultation. Will follow this patient along with you. TRE
[2017-03-28 10:28] LABS: Glucose,Whole Blood 72 mg/dL (75-99)
[2017-03-28] MEDS ORDERED: ONDANSETRON 4 MG/2 ML VIAL IVP PRN (11:27)
[2017-03-28 11:56] LABS: Basophils % (A) 0 %; CH 26.1; CHCM 30.8; Eosinophils # (A) 0.1 k/uL (0-0.7); Eosinophils % (A) 1 %; HCT 34.3 % (34.0-46.0); HDW 2.55; HGB 10.3 gm/dL (11.4-16.0); Hypochromasia Moderate; Luc # (Auto) 0.24; Luc % (Auto) 3; Lymphocytes # (A) 1.5 k/uL (1.0-4.8); Lymphocytes % (A) 15 %; MCH 25.8 pg (25.0-35.0); MCHC 30.1 g/dL (31.0-37.0); MCV 85.6 fL (80.0-100.0); Mean Platelet Volume 8.5; Monocytes # (A) 0.6 k/uL (0-1.0); Monocytes % (A) 6 %; Neutrophils # (A) 7.2 k/uL (1.3-7.7); Neutrophils % (A) 76 %; RBC 4.01 m/uL (3.80-5.40); RDW 14.4 % (11.5-15.5); WBC 9.6 k/uL (4.0-11.0); WBC (Perox) 10.33
[2017-03-28] MEDS: SODIUM CHLORIDE 0.9% 1,000 ML IV SCH ×2 (12:15→12:16)
[2017-03-28] MEDS: DEXTROSE 5%-0.9% NACL 1,000 ML IV SCH ×2 (12:18→22:52)
--- NOTE | 2017-03-28 12:44 | P.HPOR ---
History of Present Illness H&P Date: 03/28/17 Chief Complaint: Low back pain with severe headaches Patient is 22-year-old female has been having headaches and pain at her middle lower back. She initially presented to the emergency room over the weekend was discharged home but then came back in regards to similar planes. It was felt that she may have meningitic type issues and she underwent testing for this. She underwent a lumbar puncture the results of which were found to be clear of any bacterial issues. It was felt that she had a viral syndrome or possibly viral meningitis. She is having worsening of her back pain and we're counseled in this regard. She was unable to mobilize due to her back pain. She is not having any changes in her lower extremity is. No numbness tingling or weakness in lower extremity's. No changes in bowel bladder function. She is not having changes in her upper extremities. She continues to have significant pain at her mid lower back along with headaches. She's not specifically having postural headaches but she does have some rigidity at her neck. Review of Systems Denies any changes in her lower extremity. Denies any changes in bowel bladder function. Otherwise as stated per HPI Past Medical History Past Medical History: Asthma Additional Past Medical History / Comment(s): Current sinus infection, MISCARRIAGE in january, and 9 months post-. History of Any Multi-Drug Resistant Organisms: None Reported Past Surgical History: Adenoidectomy, Ear Surgery, Tonsillectomy Additional Past Surgical History / Comment(s): ovarian cyst removed, D&C Past Psychological History: No Psychological Hx Reported Smoking Status: Never smoker Past Alcohol Use History: None Reported Past Drug Use History: None Reported - Past Family History Mother Family Medical History: Skin Disorder Additional Family Medical History / Comment(s): Scleroderma, Morphea Medications and Allergies Home Medications Medication Instructions Recorded Confirmed Type Albuterol Inhaler [Ventolin 2 puff INHALATION RT-Q6H PRN 07/08/14 03/26/17 History Inhaler] Acetaminophen Tab [Tylenol Tab] 1,000 mg PO Q6HR PRN 03/24/17 03/26/17 History Ibuprofen [Motrin] 600 mg PO Q6HR PRN 03/24/17 03/26/17 History Allergies Allergy/AdvReac Type Severity Reaction Status Date / Time bee pollen Allergy Severe Anaphylaxis Verified 03/26/17 08:05 walnut Allergy Severe Anaphylaxis Verified 03/26/17 08:05 latex Allergy Rash/Hives Verified 03/26/17 08:05 medroxyprogesterone acetate AdvReac Nausea & Verified 03/26/17 08:05 [From Depo-Provera] Vomiting Physical Examination Osteopathic Statement: *. No significant issues noted on an osteopathic structural exam other than those noted in the History and Physical/Consult. - L Spine: dermatomal strength & reflexes bilateral Strength: hip flexion: 5/5 (At her back she has significant stiffness with mobilization. She has some paravertebral spasm. The site of the lumbar punctures clear. Her lower extremity is have 5 out of 5 muscle strength with dorsi flexion plantarflexion hip flexion and knee extension and EHL. Her thighs Soft nontender. No pain control extra rotation of hips. Pelvis is stable to rock. Her upper extremity full active passive range of motion. She has soreness with global range of motion at her neck. It is difficult to say if this is specific neural tension signs for her. Her overall effort for motion is minimal. She is not having any upper motor neuron signs. She has no clonus no hyperreflexia.) Results - Labs Labs: Abnormal Lab Results - Last 24 Hours (Table) 03/28/17 03/28/17 03/28/17 Range/Units 05:47 05:47 09:25 Hgb 10.3 L (11.4-16.0) gm/dL MCHC 30.1 L (31.0-37.0) g/dL Chloride 108 H (98-107) mmol/L Carbon Dioxide 20 L (22-30) mmol/L BUN 6 L (7-17) mg/dL Glucose 59 L (74-99) mg/dL POC Glucose (mg/dL) 69 L (75-99) mg/dL Calcium 8.2 L (8.4-10.2) mg/dL 03/28/17 Range/Units 10:25 Hgb (11.4-16.0) gm/dL MCHC (31.0-37.0) g/dL Chloride (98-107) mmol/L Carbon Dioxide (22-30) mmol/L BUN (7-17) mg/dL Glucose (74-99) mg/dL POC Glucose (mg/dL) 72 L (75-99) mg/dL Calcium (8.4-10.2) mg/dL Microbiology - Last 24 Hours (Table) 03/26/17 14:45 CSF Gram Stain - Preliminary Cerebral Spinal Fluid CSF Culture - Preliminary 03/27/17 04:00 Urine Culture - Preliminary Urine,Clean Catch H & H 03/25/17 03/26/17 03/28/17 Range/Units 21:10 06:52 05:47 Hgb 12.3 11.6 10.3 L (11.4-16.0) gm/dL Hct 37.1 38.4 34.3 (34.0-46.0) % Result Diagrams: 03/28/17 05:47 03/28/17 05:47 - Diagnostic results Lumbar AP/lateral x-ray with flexion/extension views: report reviewed, image reviewed (Lumbar x-rays are reviewed. There is no obvious fracture or dislocation. There is no obvious instability. Diskettes well-maintained. Bone quality is well maintained. There is no instability with flexion and extension. She has some evidence of spasm with slight gentle curvature and loss of her lumbar lordosis likely due to spastic issues at her paraspinal muscular) Assessment and Plan Plan: Low back pain Paravertebral spasm and strain No evidence of neurologic deficit or loss or radiculopathy History of headaches and possible viral meningitis status post lumbar puncture The patient has overall malaise likely due to viral syndrome. She may have viral meningitic issues which are being treated with medical management. She is not having acute neurologic loss do not think that she is an acute surgical patient in terms of her spine. He is okay for her to try to mobilize and increase her mobility as tolerated from a spine standpoint. Anesthesia has been seeing her and they have ordered a MRI of her lumbar spine to rule out possibility of hematoma or other palpation from the lumbar function and I think that is appropriate. We will follow up on the MRI as well. If it is essentially clear she can follow-up on an as-needed basis.
[2017-03-28] MEDS: CYCLOBENZAPRINE 10 MG TAB PO PRN ×2 (14:07→22:46)
--- NOTE | 2017-03-28 15:26 | P.PN ---
<Arielle Cabrera - Last Filed: 03/28/17 14:54> Progress Note - Text DATE OF SERVICE: 03/28/2017 PRESENTING COMPLAINT: Fever/headache/back pain INTERVAL HISTORY: 22-year-old female presents general malaise weakness with fever, has had it for the past few days. Had some urinary urgency diagnosed with pyelonephritis started on amoxicillin and discharged home, however continues to have intermittent fevers with T-max of 103 Fahrenheit. Spinal tap performed on 03/26 with initiation of Rocephin and vancomycin. 03/28/2017: Patient seen in follow-up, continues to have excruciating lower lumbar and sacral back pain, with headache. Has had nausea and vomiting, has difficulty keeping down liquids/foods. [facility] has seen the patient, recommended a neuro consult will await their input. Not tolerating her diet, increased IV fluids and added dextrose, requires standby assistance to ambulate. Last BM 03/25/2017. 03/27/2017: Patient seen in follow-up, complains of excruciating lower lumbar and sacral back pain, roughly about where they did a lumbar puncture. Patient does also complain of a severe headache and is unable to move off of the bed screaming and crying in pain. We consulted anesthesia, and orthospine for their input. Patient is tolerating her diet eating about 50%, unable to ambulate without assistance due to the pain. Last BM was 03/25/2017 REVIEW OF SYSTEMS: Done for constitutional ,cardiovascular, GI, pulmonary with relevant findings as above. CURRENT MEDICATIONS [place], ceftriaxone, diphenhydramine, Dilaudid, Motrin, Toradol, Zofran. PHYSICAL EXAM VITAL SIGNS: Temperature 98.1, pulse 111, respiratory rate 21, blood pressure 112/70, oxygen saturation 96% on room air. GENERAL APPEARANCE: Lying in bed, in distress looks uncomfortable. EYES: Pupils equal. Conjunctiva normal. NECK: JVD not raised. Mass not palpable. RESPIRATORY: Respiratory effort normal. Lungs clear to auscultation. CARDIOVASCULAR: First and second sounds normal. No edema. ABDOMEN: Soft. Liver and spleen not palpable. No tenderness. No mass palpable. PSYCHIATRY: Alert and oriented x3. Mood and affect low. MUSCULOSKELETAL: Tenderness noted to the spinal column at the lumbar and sacral regions, directly to the spine as well as the areas on either side no swelling noted. General body aches. NEUROLOGIC: No numbness or tingling to the extremities, unable to do straight leg raises bilaterally without pain. Movement of legs and arms creates spinal pain that moves into the head. LYMPHATICS: Tenderness amd mild swelling noted to occipital, parotid, superficial cervical, submandibular, submandibular glands. INVESTIGATIONS: White blood cell count 9.6, hemoglobin 10.3, sodium 139, potassium 3.6, BUN 6 creatinine 0.56 ASSESSMENT: -Fever of unknown origin,sepsis and meningitis ruled out -Viral or bacterial meningitis, cultures negative, ruled out -Lumbar/sacral spine pain -nausea with vomiting unspecified PLAN: Cultures are negative thus far, infectious disease is following, continue antibiotic therapy of Rocephin 1 g and vancomycin will be discontinued.. No fever since 10:30 on 03/27/2017 Continues to have back pain and head pain anesthesia ordered MRI of the lumbar spine to rule out hematoma of the lumbar spine, continue Toradol continue Dilaudid and start patient on Flexeril. Orthospine believes she is not an acute surgical patient in terms of her spine. Await additional input from neurology Unable to tolerate food or fluid orally increased IV fluids. Discussed plan of care with the patient and grandmother at the bedside. We'll continue to follow closely HEALTH SERVICES MANAGER statement: Patient was seen and examined by nurse practitioner Arielle Cabrera and all elements of the case discussed with attending Dr. Echols <Mo Echols - Last Filed: 03/28/17 21:59> Progress Note - Text Date of service 03/28/2017 Attending note: This patient was seen and examined by me. Discussed with my nurse practitioner Ms. Cabrera Patient admitted admitted with what appears to be in acute while syndrome with some meningitic features with rather benign appearing CSF. Empirically on antibiotics. Patient headache is WORSE when she sits up with nausea vomiting and patient not able to eat. Patient fevers have been down. Feels weak and tired though somewhat better than yesterday. On IV ceftriaxone On examination: Afebrile, lungs-clear, cardiovascular-first seconds are normal, abdomen soft nontender Investigations: White count 9.6 Assessment and plan: Suspect acute while syndrome with some features of meningism. Suspect spinal headache. Intermittent asthma. Spoke to anesthesia and call, to consider a blood patch as patient spinal headache is interfering with her oral intake. On IV ceftriaxone. Patient seen by Dr. Sanchez from neurosurgery-consult noted. Patient appears to be slowly improving. Await further input from ID. Spoke to the patient and the grandmother the bedside. They both agree patient is feeling better. We'll see if the blood patch helps.
--- NOTE | 2017-03-28 20:32 | MR ---
EXAMINATION TYPE: MR lumbar spine wo con DATE OF EXAM: 03/28/2017 COMPARISON: Plain film 03/27/2017 HISTORY: Severe LBP, headache, N & V, dizziness TECHNIQUE: Multiplanar, multisequence images of the lumbar spine were acquired. FINDINGS: There is motion on the exam. Patient spinal curvature is again noted. L1-L2: Normal disc appearance without desiccation. No herniation, protrusion or disc bulging. No ca nal stenosis is present. Foramina are patent bilaterally. L2-L3: Normal disc appearance without desiccation. No herniation, protrusion or disc bulging. No ca nal stenosis is present. Foramina are patent bilaterally. L3-L4: Normal disc appearance without desiccation. No herniation, protrusion or disc bulging. No ca nal stenosis is present. Foramina are patent bilaterally. L4-L5: Normal disc appearance without desiccation. No herniation, protrusion or disc bulging. No ca nal stenosis is present. Foramina are patent bilaterally. L5-S1: Normal disc appearance without desiccation. No herniation, protrusion or disc bulging. No ca nal stenosis is present. Foramina are patent bilaterally. Lumbar segments are intact. No paraspinal masses are identified. Conus medullaris has a normal appe arance. IMPRESSION: There is motion especially in the axial images. Mild spinal curvature. Exam is limited.
[2017-03-28] MEDS: HYDROcodone/APAP 5-325MG 1 EACH TAB PO PRN (20:42)
[2017-03-28] MEDS: ENOXAPARIN 40 MG/0.4 ML SYRINGE SQ SCH (22:47)
--- NOTE | 2017-03-28 22:57 | P.CNNES ---
History of Present Illness Consult date: 03/28/17 Reason for Consult: Patient being evaluated for intractable low back pain and headaches. History of Present Illness: This patient is a 22-year-old right-handed white female who was brought into the emergency room at [facility] on 03/25/2017 for evaluation of severe headache pain and chronic low back pain. Patient had been to the ER a week earlier and was diagnosed as having possible pyelonephritis. She was given some antibiotics and discharged from the ER. The patient apparently went home and continued to have significant fever. She has been dealing with recurrent fevers for over 3 weeks. About 5 days ago she began experiencing severe intractable headache pain. She also continued to have fever at home. She states the highest temperature she was able to record at home with 104. Due to this severe headache pain and persistent fever she was brought in to the emergency room and was seen in the ER. She underwent a computed tomography scan of the brain which was reported negative for any acute changes. She was admitted to the hospital for further evaluation. She was seen by several specialists including infectious disease and orthopedic spine surgery. Today she was also seen by anesthesia for pain management. Due to the symptoms of fever and headache she underwent a lumbar puncture on 03/26/2017. Spinal fluid results came back negative with no evidence of meningitis or other abnormalities. She was seen by infectious disease and was started on Rocephin and vancomycin. Today the vancomycin was discontinued by Dr. Covarrubias and she continues only on Rocephin at this time. Patient has required multiple pain medications which have helped only slightly in terms of pain management. She does continue to have symptoms suggesting post spinal headache. She is examined today in her room and becomes very symptomatic with headache pain just attempting to sit on the side of the bed. We have recommended anesthesia to perform a blood patch as they did the spinal tap for her as well. Her headache pain is been diffuse involving her entire head and neck region. She does not appear to have signs of meningeal irritation at this time. She is able to flex her neck and touch her chin to her chest with only mild to moderate discomfort. She feels as if this pulls her back pain symptoms upwards. The patient was seen by Dr. Echols. His findings suggest possible viral syndrome. Due to severity of her headache and back pain neurology was consulted today for further evaluation. Patient states her headache pain on admission was 10 over 10. Today the intensity of headache pain as 5/10. Patient denies any recent headache or head injury. She has no previous history of seizures. She recently delivered her baby girl about 9 months ago. She had no complications with her . She has been able to stand with two-person assist but has more symptoms of severe headache every time she does go to a standing position. She also is complaining of not only lumbar pain but mid thoracic pain which is quite sensitive to touch. Apparently her mother suffers from migraine headaches. The patient usually gets occasional headache but not this severe. She was seen by orthopedic spine surgery and Dr. Sanchez earlier today. His impression is viral syndrome for the patient. She was also seen by anesthesia who ordered MRI of the lumbar spine. MRI of the lumbar spine was reported to be negative for any major changes. No evidence of any alix disc herniation. Today at bedside the patient states she does have low back pain but also has new symptoms of mid thoracic pain. The patient denies any bowel or bladder symptoms at this time. Due to the severity of her headache and back pain neurology was consulted today for further evaluation and recommendations. Review of Systems Constitutional: Denies chills, Denies fever Eyes: denies blurred vision, denies pain Ears, nose, mouth and throat: Denies headache, Denies sore throat Cardiovascular: Denies chest pain, Denies shortness of breath Respiratory: Denies cough Gastrointestinal: Denies abdominal pain, Denies diarrhea, Denies nausea, Denies vomiting Genitourinary: Denies dysuria, Denies hematuria Musculoskeletal: Denies myalgias Integumentary: Denies pruritus, Denies rash Neurological: Reports burning pain, Reports double vision, Reports headaches, Reports paresthesias, Reports tingling, Reports visual changes, Denies numbness , Denies weakness Psychiatric: Denies anxiety, Denies depression Endocrine: Denies fatigue, Denies weight change Past Medical History Past Medical History: Asthma Additional Past Medical History / Comment(s): Current sinus infection, MISCARRIAGE in january, and 9 months post-. History of Any Multi-Drug Resistant Organisms: None Reported Past Surgical History: Adenoidectomy, Ear Surgery, Tonsillectomy Additional Past Surgical History / Comment(s): ovarian cyst removed, D&C Past Psychological History: No Psychological Hx Reported Smoking Status: Never smoker Past Alcohol Use History: None Reported Past Drug Use History: None Reported - Past Family History Mother Family Medical History: Skin Disorder Additional Family Medical History / Comment(s): Scleroderma, Morphea Medications and Allergies Home Medications Medication Instructions Recorded Confirmed Type Albuterol Inhaler [Ventolin 2 puff INHALATION RT-Q6H PRN 07/08/14 03/26/17 History Inhaler] Acetaminophen Tab [Tylenol Tab] 1,000 mg PO Q6HR PRN 03/24/17 03/26/17 History Ibuprofen [Motrin] 600 mg PO Q6HR PRN 03/24/17 03/26/17 History Allergies Allergy/AdvReac Type Severity Reaction Status Date / Time bee pollen Allergy Severe Anaphylaxis Verified 03/26/17 08:05 walnut Allergy Severe Anaphylaxis Verified 03/26/17 08:05 latex Allergy Rash/Hives Verified 03/26/17 08:05 medroxyprogesterone acetate AdvReac Nausea & Verified 03/26/17 08:05 [From Depo-Provera] Vomiting Physical Examination - Vital Signs Vital Signs: Vital Signs Temp Pulse Pulse Pulse Resp BP Pulse Ox 03/28/17 20:16 97.8 F 55 L 20 142/77 96 03/28/17 18:04 97.9 F 72 22 124/71 97 03/28/17 17:42 88 03/28/17 17:29 90 03/28/17 17:00 72 22 03/28/17 16:35 97.5 F L 60 16 130/81 97 03/28/17 11:35 98.1 F 102 H 19 134/72 97 03/28/17 11:17 92 16 03/28/17 11:05 90 16 03/28/17 08:15 98.1 F 111 H 21 112/70 96 03/28/17 07:03 90 16 03/28/17 06:54 90 16 03/28/17 04:00 98.7 F 87 18 122/87 94 L 03/28/17 03:53 80 03/28/17 03:45 80 Intake and Output 03/28/17 03/28/17 03/28/17 06:59 14:59 22:59 Intake Total 150 Output Total 200 1250 400 Balance -200 -1250 -250 Intake: Oral 150 Output: Urine 200 1250 400 Other: Voiding Method Toilet # Voids 1 # Emeses 1 - Constitutional General appearance: cooperative - EENT EENT: PERRL, mucous membranes moist - Respiratory Respiratory: lungs clear, normal breath sounds - Cardiovascular Cardiovascular: regular rate, normal S1, normal S2 Extremities: no peripheral edema bilaterally - Gastrointestinal Gastrointestinal: normoactive bowel sounds - Integumentary Integumentary: normal - Neurologic Cranial nerve examination: PERRL, EOMI, VFF, V1/V2/V3 grossly intact, face symmetric, tongue midline, intact gag reflex, intact corneal reflex, normal palatal elevation Speech examination: intact Sensorimotor examination: intact Motor examination - right side: 4/5: biceps, triceps, wrist flexion, wrist extension, vasc tech, hip flexors, knee extensors, dorsiflexion, toe extension (EHL) , plantarflexion Motor examination - left side: 4/5: biceps, triceps, wrist flexion, wrist extension, vasc tech, hip flexors, knee extensors, dorsiflexion, toe extension (EHL) , plantarflexion Detailed sensory examination: intact Reflex and gait examination: intact Reflexes: 1+: ankle, bicep, knee, tricep - Musculoskeletal Musculoskeletal: no pain - Psychiatric Psychiatric: mood/affect appropriate, cooperative Results - Laboratory Findings CBC and BMP: 03/28/17 05:47 03/28/17 05:47 Abnormal Lab Findings: Abnormal Labs 03/25/17 03/25/17 03/25/17 20:51 21:10 21:10 WBC 13.7 H Hgb MCV 79.5 L MCHC Neutrophils # 10.7 H Monocytes # 1.4 H Chloride Carbon Dioxide 21 L BUN Glucose POC Glucose (mg/dL) Plasma Lactic Acid Edmundo 0.6 L Calcium C-Reactive Protein 153.8 H Total Protein Albumin Urine Protein Urine Ketones 03/26/17 03/26/17 03/27/17 06:52 06:52 04:00 WBC 12.4 H Hgb MCV MCHC 30.3 L Neutrophils # 9.2 H Monocytes # 1.2 H Chloride 112 H Carbon Dioxide 17 L BUN Glucose 52 L POC Glucose (mg/dL) Plasma Lactic Acid Edmundo Calcium C-Reactive Protein Total Protein 5.6 L Albumin 3.4 L Urine Protein Trace H Urine Ketones 3+ H 03/28/17 03/28/17 03/28/17 05:47 05:47 09:25 WBC Hgb 10.3 L MCV MCHC 30.1 L Neutrophils # Monocytes # Chloride 108 H Carbon Dioxide 20 L BUN 6 L Glucose 59 L POC Glucose (mg/dL) 69 L Plasma Lactic Acid Edmundo Calcium 8.2 L C-Reactive Protein Total Protein Albumin Urine Protein Urine Ketones 03/28/17 10:25 WBC Hgb MCV MCHC Neutrophils # Monocytes # Chloride Carbon Dioxide BUN Glucose POC Glucose (mg/dL) 72 L Plasma Lactic Acid Edmundo Calcium C-Reactive Protein Total Protein Albumin Urine Protein Urine Ketones Assessment and Plan (1) Occipital neuritis Status: Acute Code(s): M54.81 - OCCIPITAL NEURALGIA (2) Chronic lumbar pain Status: Acute Code(s): M54.5 - LOW BACK PAIN; G89.29 - OTHER CHRONIC PAIN (3) Acute thoracic back pain Status: Acute Code(s): M54.6 - PAIN IN THORACIC SPINE (4) Diplopia Status: Acute Code(s): H53.2 - DIPLOPIA (5) Sepsis Status: Acute Code(s): A41.9 - SEPSIS, UNSPECIFIED ORGANISM Plan: This patient is a 22-year-old right-handed white female who was seen in neurology consultation today for evaluation of chronic low back pain and headaches. Her neurological examination reveals evidence of bilateral occipital neuritis. She also has evidence of significant hyperreflexia in the lower extremities suggesting possible spinal cord involvement. She does complain of new findings of midthoracic level pain on percussion of the spine. She underwent lumbar puncture the results of which came back negative for any evidence for meningitis or encephalitis at this time. Patient continues to have only moderate degree of pain relief from headache. She does have evidence of post spinal headache symptoms on examination today. We recommend that she undergo a blood patch procedure for treatment. The patient also has evidence of bilateral occipital neuritis. We are recommending she undergo bilateral occipital nerve block procedure by anesthesia. Due to her hyperreflexia and midthoracic level pain we have recommended MRI of the cervical and thoracic spine to be done urgently tomorrow for further workup and evaluation. Due to the hyperreflexia and her young age we are also recommending MRI of the brain to further evaluate for possible demyelinating disease such as MS. We have discussed all of these findings in detail with the patient today. Her overall prognosis at this time remains very guarded. Case was also discussed today with Dr. Echols and Dr. Covarrubias regarding her neurological findings. We will await their further recommendations. Her overall prognosis at this time remains very guarded. We will continue to follow her closely during this admission. Time with Patient: Greater than 30
[2017-03-29] MEDS: KETOROLAC 30 MG/ML 1 ML VIAL IVP SCH ×4 (00:05→17:21)
[2017-03-29] MEDS: HYDROmorphone 1 MG/ML 1 ML SYRINGE IVP PRN (01:21)
[2017-03-29 07:02] LABS: Basophils % (A) 0 %; CH 25.4; CHCM 31.6; Eosinophils # (A) 0.2 k/uL (0-0.7); Eosinophils % (A) 3 %; HCT 31.3 % (34.0-46.0); HDW 2.58; HGB 10.2 gm/dL (11.4-16.0); Luc # (Auto) 0.26; Luc % (Auto) 4; Lymphocytes # (A) 1.8 k/uL (1.0-4.8); Lymphocytes % (A) 26 %; MCH 26.3 pg (25.0-35.0); MCHC 32.5 g/dL (31.0-37.0); MCV 80.8 fL (80.0-100.0); Mean Platelet Volume 7.1; Monocytes # (A) 0.4 k/uL (0-1.0); Monocytes % (A) 5 %; Neutrophils # (A) 4.5 k/uL (1.3-7.7); Neutrophils % (A) 62 %; RBC 3.88 m/uL (3.80-5.40); RDW 13.7 % (11.5-15.5); WBC 7.2 k/uL (4.0-11.0); WBC (Perox) 7.63
[2017-03-29 07:52] LABS: Anion Gap 10 mmol/L; Blood Urea Nitrogen 6 mg/dL (7-17); Calcium 8.5 mg/dL (8.4-10.2); Carbon Dioxide 21 mmol/L (22-30); Chloride 112 mmol/L (98-107); Glucose 87 mg/dL (74-99); Non-African American GFR(MDRD) >60 (>60 ml/min/1.73 sqM); Potassium 3.3 mmol/L (3.5-5.1); Sodium 143 mmol/L (137-145)
--- NOTE | 2017-03-29 08:07 | XR ---
EXAMINATION TYPE: XR chest 2V DATE OF EXAM: 03/29/2017 COMPARISON: Prior chest x-ray 03/25/2017 HISTORY: Shortness of breath nausea and vomiting TECHNIQUE: Frontal and lateral views of the chest are obtained. FINDINGS: Airspace disease is present within the right lower lobe. No pneumothorax or pleural effusi on. Cardiomediastinal silhouette, pulmonary vascularity and ioana not significantly changed. IMPRESSION: Correlate for right lower lobe pneumonia, follow-up is recommended.
[2017-03-29] MEDS: ALBUTEROL NEBULIZED 2.5 MG/3 ML INHALATION PRN ×2 (08:15→13:26)
[2017-03-29] MEDS ORDERED: POTASSIUM CHLORIDE ER 20 MEQ TAB.ER PO STA (08:28)
[2017-03-29] MEDS: HYDROcodone/APAP 5-325MG 1 EACH TAB PO PRN ×2 (09:13→21:19)
[2017-03-29] MEDS: ENOXAPARIN 40 MG/0.4 ML SYRINGE SQ SCH (09:13)
[2017-03-29] MEDS ORDERED: IV FLUID CONTINUATION 1,000 ML IV ONE ×2 (10:22)
[2017-03-29] MEDS ORDERED: PROMETHAZINE INJ 25 MG/ML 1 ML VIAL IVPB ONE (10:29)
[2017-03-29] MEDS: fentaNYL (PF) 50 MCG/ML 2 ML AMP IVP ONE ×2 (11:01→12:01)
[2017-03-29] MEDS: MIDAZOLAM 2 MG/2 ML VIAL IVP ONE ×2 (11:01→12:01)
[2017-03-29] MEDS ORDERED: TRIAMCINOLONE ACETONIDE 40 MG/ML 1 ML VIAL INTRABURSA ONE (12:20)
[2017-03-29] MEDS: DEXTROSE 5%-0.9% NACL 1,000 ML IV SCH (13:29)
[2017-03-29] MEDS: LORATADINE-PSEUDOEPH 5-120 MG 1 EACH TAB.ER.12H PO SCH (13:39)
[2017-03-29] MEDS: LEVOFLOXACIN 500 MG TAB PO SCH (13:49)
[2017-03-29] MEDS ORDERED: LORazepam 2 MG/ML SYRINGE IV STA (14:49)
--- NOTE | 2017-03-29 15:46 | P.PN ---
Progress Note - Text I reviewed the patient's chart and I appreciated the consult note from her ALLERGY. I reviewed the imaging of the cervical and thoracic spine as well as lumbar spine. There is no evidence of stenosis disc herniation or spinal cord compression. I do not see any obvious spinal cord abnormality or epidural mass lesions or hematoma. I do not see any compression of the cervical thoracic or lumbar spine and I do not plan any surgical intervention at this point. Patient should continue his medical management and can follow-up with us on an as-needed basis.
--- NOTE | 2017-03-29 16:46 | MR ---
MR brain without contrast HISTORY: Headache and fever Multiplanar multisequence imaging obtained through the brain and correlated to prior CT brain dated There are normal vascular flow voids. No restricted diffusion to suggest subacute ischemia. Brain sig nal is maintained. There is no hemorrhage or hydrocephalus. The orbits show a symmetric appearance. C erebellopontine angles, corpus callosum, pituitary, cervical medullary junction are normal. Mild infl ammatory change present within the ethmoid air cells. There may be a polyp or mucus retention cyst wi thin the left maxillary sinus. IMPRESSION: Sinus disease. Normal noncontrast brain MRI.
--- NOTE | 2017-03-29 16:51 | MR ---
EXAMINATION TYPE: MR cspine/tspine wo/w con DATE OF EXAM: 03/29/2017 COMPARISON: Chest x-ray 03/28/2017 HISTORY: new pain and fever TECHNIQUE: Multiplanar, multisequence images of the cervical and thoracic spine is performed without and with IV contrast, utilizing 5.5 mL intravenous Gadavist FINDINGS: Sagittal images of the cervical and thoracic spine show vertebral body heights and alignmen t to appear satisfactory. The intervertebral discs demonstrate normal heights and hydration. The con us medullaris is normal in position and signal. The bone marrow signal intensity is within normal li mits. Axial images show no focal disc disease, or facet degenerative change at any cervical or thoracic lev el. There is no spinal canal stenosis, neural foraminal narrowing, or evidence of nerve root comprom ise. There is a mild spinal curvature. No abnormal enhancement. Incidental note made of right-sided pneumonia and pleural effusion right greater than left. IMPRESSION: Negative MRI of the cervical and thoracic spine. Right lower lobe pneumonia and parapneu regi effusion.
[2017-03-29] MEDS: PIPERACILLIN-TAZOBACTAM 3.375 GM in DEXTROSE/WATER 1 50ML.BAG IVPB SCH (18:44)
--- NOTE | 2017-03-29 19:52 | P.PN ---
Subjective This is a follow-up visit for this 22 years old female, who was admitted to [facility], secondary to severe headache and pain, diagnostic lumbar puncture was done to rule out meningitis, lumbar puncture patient was complaining of severe intractable headache, the headache was constant not changed with position, yesterday afternoon ,she reported that the headache intensity increased and became positional headache, today the exam was positive for severe tenderness over the occipital nerves bilaterally, this reason I discussed with the patient the option of doing occipital nerve block plus lumbar epidural blood patch, procedure risk and benefits and alternatives discussed with the patient, and family and, agreed with the preceding. Objective - Vital Signs Vital signs: Vital Signs Temp 98.9 F 03/29/17 16:58 Pulse 71 03/29/17 16:58 Resp 20 03/29/17 16:58 BP 130/89 03/29/17 16:58 Pulse Ox 95 03/29/17 16:58 Intake & Output 03/29/17 03/29/17 03/30/17 06:59 18:59 06:59 Intake Total 150 550 Output Total 500 Balance 150 50 Intake: IV 550 Oral 150 Output: Urine 500 Other: # Voids 1 - Labs CBC & Chem 7: 03/29/17 06:39 03/29/17 06:39 Labs: Abnormal Lab Results - Last 24 Hours (Table) 03/29/17 03/29/17 Range/Units 06:39 06:39 Hgb 10.2 L (11.4-16.0) gm/dL Hct 31.3 L (34.0-46.0) % Potassium 3.3 L (3.5-5.1) mmol/L Chloride 112 H (98-107) mmol/L Carbon Dioxide 21 L (22-30) mmol/L BUN 6 L (7-17) mg/dL Creatinine 0.50 L (0.52-1.04) mg/dL Microbiology - Last 24 Hours (Table) 03/26/17 14:45 CSF Gram Stain - Preliminary Cerebral Spinal Fluid CSF Culture - Preliminary Assessment and Plan Time with Patient: Less than 30
[2017-03-29] MEDS: ALBUTEROL NEBULIZED 2.5 MG/3 ML INHALATION SCH (19:57)
--- NOTE | 2017-03-29 19:59 | P.PCN ---
Date of Procedure: 03/29/17 Preoperative Diagnosis: Postoperative Diagnosis: Procedure(s) Performed: Procedure= lumbar epidural blood patch. Preoperative diagnosis= postdural puncture headache. Postoperative diagnoses= post dural puncture headache. Indication for the procedure= patient developed headache after diagnostic lumbar puncture,the headache persists in spite of conservative treatment, there is no focal neurological deficit, no fever, no neck stiffness, headache worse with sitting and standing position, and improved with lying supine, for this reason patient is a good candidate for epidural blood patch. anesthesia= IV sedation with Versed 4 mg and fentanyl 200 mcg and local infiltration with lidocaine 1% 3 mL. Complications= none. Description of the procedure= patient identified risks and benefits of the procedure explained to the patient and patient agreed with proceeding, vital signs monitored during the procedure and IV sedation given to decrease anxiety, she was placed in lateral position, (she could not stay in sitting position because she was vomiting every time she was taking in the sitting position) Back lumbar area prepped with chlorhexidine 3 times, then drape applied the local infiltration of the skin and subcutaneous tissue with lidocaine 1% 3 mL at L5-S1 interlaminar space then 18-gauge Tuohy needle advanced slowly at L5-S1 interlaminar space, There was positive loss of resistance to normal saline, no heme no paresthesia no cerebrospinal fluid, then after that 18 ML of the blood taken from the patient under strict sterile technique, and after the left dorsem of the hand after the area prepped with a chlorhexidine 3 times,then using 20-gauge Angiocath, and under sterile technique the 18 ML of the block taken from the patient injected in the epidural space after negative aspiration for heme or CSF and there was no paresthesia then the needle removed intact the skin cleaned and the , bandage applied and patient discharged home in stable condition after discharged from the recovery room ,after she met the discharge criteria Implants: Indications for Procedure: Operative Findings: Description of Procedure:
--- NOTE | 2017-03-29 20:06 | P.PCN ---
Date of Procedure: 03/29/17 Preoperative Diagnosis: Postoperative Diagnosis: Procedure(s) Performed: Pre-operative diagnosis: 1- Bilateral occipital neuralgea Post Operative Diagnosis 1- Bilateral occipital neuralgea Procedure: 1- Bilateral occipital nerve block ANESTHESIA: Conscious sedation with Versed.4 mg mg and fentanyl 200 micrograms (dictation was already given to do the lumbar epidural blood patch ) EBL: Minimal PROCEDURE INDICATION: The patient with neck pain and headache secondary to occipital neuralgea unresponsive to conservative treatments. She had symptoms of occipital neuralgia ,and also post dural puncture headache ,and she was candidate to have epidural blood patch and also she had severe tenderness over the occipital nerve for distances and we discussed with the patient the option of doing bilateral occipital nerve block ,hopefully this will alleviate her headache PROCEDURE DESCRIPTION / TECHNIQUE: The patient was seen and identified in the preoperative area. Risks, benefits, complications, and alternatives were discussed with the patient, the patient agreed to proceed with the procedure and signed the consent. Vital signs remained stable throughout the procedure. time out was completed. The patient was placed in the lateral position . The cervical area and right occiptial area were prepped with chlorhexedine. Critical pause was taken. Vital signs were closely monitored during the procedure. Conscious sedation was used during the procedure to decrease patient s anxiety. The right occiptal ridge was palpated and was then accessed with a 25 G needle. Then after negative aspiration, 6 ml of the block solution containing 6 ml of PF Buvicaine 0.5% and Kenalog 20 mg was injected. Needle was withdrawn intact. Then the same procedure was repeated on the left side and related the left occipital nerve block, after negative aspiration 6 mL of the block solution containing ropivacaine 0.5% and 20 mg of Kenalog injected after negative aspiration Patient tolerated procedure well. No acute complications. Implants: Indications for Procedure: Operative Findings: Description of Procedure:
--- NOTE | 2017-03-29 20:10 | P.PN ---
<Arielle Cabrera - Last Filed: 03/29/17 19:49> Progress Note - Text DATE OF SERVICE: 03/29/2017 PRESENTING COMPLAINT: Fever/headache/back pain INTERVAL HISTORY: 22-year-old female presents general malaise weakness with fever, has had it for the past few days. Had some urinary urgency diagnosed with pyelonephritis started on amoxicillin and discharged home, however continues to have intermittent fevers with T-max of 103 Fahrenheit. Spinal tap performed on 03/26 with initiation of Rocephin and vancomycin. 03/29/2017: Patient seen in follow-up, continues to have lower lumbar pain and sacral pain with a headache. Headache worse when sitting up. Nauseated and vomiting unable to eat. Afebrile, continues on antibiotic therapy per ID. Patient slated for a blood patch today. Neurology ordered an MRI of the spine and the brain for today. Patient's mood is low, just wants to feel better. 03/28/2017: Patient seen in follow-up, continues to have excruciating lower lumbar and sacral back pain, with headache. Has had nausea and vomiting, has difficulty keeping down liquids/foods. Orthospine has seen the patient, recommended a neuro consult will await their input. Not tolerating her diet, increased IV fluids and added dextrose, requires standby assistance to ambulate. Last BM 03/25/2017. 03/27/2017: Patient seen in follow-up, complains of excruciating lower lumbar and sacral back pain, roughly about where they did a lumbar puncture. Patient does also complain of a severe headache and is unable to move off of the bed screaming and crying in pain. We consulted anesthesia, and orthospine for their input. Patient is tolerating her diet eating about 50%, unable to ambulate without assistance due to the pain. Last BM was 03/25/2017 REVIEW OF SYSTEMS: Done for constitutional ,cardiovascular, GI, pulmonary with relevant findings as above. CURRENT MEDICATIONS [place], ceftriaxone, diphenhydramine, Dilaudid, Motrin, Toradol, Zofran. PHYSICAL EXAM VITAL SIGNS: Temperature 99.0 pulse 86 respirations 14 blood pressure 122/72, oxygen saturation 87% on room air GENERAL APPEARANCE: Lying in bed, in distress looks uncomfortable. EYES: Pupils equal. Conjunctiva normal. NECK: JVD not raised. Mass not palpable. RESPIRATORY: Respiratory effort normal. Lungs clear to auscultation. CARDIOVASCULAR: First and second sounds normal. No edema. ABDOMEN: Soft. Liver and spleen not palpable. No tenderness. No mass palpable. PSYCHIATRY: Alert and oriented x3. Mood and affect low. MUSCULOSKELETAL: Tenderness noted to the spinal column at the lumbar and sacral regions, directly to the spine as well as the areas on either side no swelling noted. General body aches. NEUROLOGIC: No numbness or tingling to the extremities, unable to do straight leg raises bilaterally without pain. Movement of legs and arms creates spinal pain that moves into the head. LYMPHATICS: Tenderness and mild swelling noted to occipital, parotid, superficial cervical, submandibular, submandibular glands. INVESTIGATIONS: Hemoglobin 10.2, sodium 143, potassium 3.3, BUN 6, creatinine 0.50. MRI of the C-spine and T-spine with and without contrast: Negative MRI of the cervical thoracic spine. Right lower lobe pneumonia and pneumonic effusion. MRI of the brain: Sinus disease, normal noncontrast brain MRI. ASSESSMENT: -Fever of unknown origin,sepsis and meningitis ruled out -Viral or bacterial meningitis, cultures negative, ruled out -Lumbar/sacral spine pain -nausea with vomiting unspecified -Hypokalemia, likely due to decreased food and fluid intake -Viral pneumonia right lower lobe PLAN: Continue antibiotic therapy per ID, Anesthesia will take patient later today for blood patch, neurology scheduled MRI of the brain and spine to rule out other potential causes. Pulmonology consulted for their input. Continues to have difficulty eating and drinking. IV fluid rate remains the same. Discussed plan of care with the patient and family at the bedside. Potassium supplemented. We'll continue to follow closely WELD ENGINEER statement: Patient was seen and examined by nurse practitioner Arielle Cabrera and all elements of the case discussed with attending Dr. Echols <Mo Echols - Last Filed: 03/29/17 21:09> Progress Note - Text Attending note. Date of service-03/29/2017 This patient was seen and examined by me . I reviewed the note of my nurse practitioner, Ms. Cabrera. Discussed with her, additional findings as below. Patient admitted with what appears to be a viral syndrome with features of meningism. Patient had a blood patch done today and headache has significantly improved. Patient actually ate a little bit. Patient's mother and friend of the presence of the bedside. Patient laying in bed more comfortable smiling. Patient also had steroid nuchal injections as ordered by Dr. Barth. On examination: Appears more relaxed, lungs fair entry. Patient been able to walk to the bathroom Investigations: MRI of the brain and cervical thoracic spine MRI unremarkable. Checks x-ray- possible infiltrate on the right side Assessment and plan: Acute severe viral syndrome including meningism, possible pneumonitis. Overall patient doing much better has been afebrile started to eat better walking to the bathroom. Talk to the mother. We'll see his is any more input from ID and neurology. Expect this to continue to improve. Have the patient be out of bed in the chair and encouraged to ambulate
--- NOTE | 2017-03-29 20:53 | PN ---
DATE OF SERVICE: 03/28/17 REASON FOR FOLLOW UP: Fever and questionable viral syndrome/urinary tract infection. INTERVAL HISTORY: The patient is afebrile for more than 48 hours though. The last fever was 100.1 on 03/27 in the morning. The patient continues to complain of headache and back pain for which the patient has been evaluated by orthopedics as well as the anesthesia and MRI of the lumbar spine has been ordered, currently pending. Some nausea but no vomiting. No ( ), no diarrhea. On examination, blood pressure 124/71 with a pulse of 72. Temperature 97.9. She is 97% on room air. General description is a young female lying in the bed in no distress. Respiratory system unlabored breathing. Clear to auscultation anteriorly. Heart S1, S2 regular rate and rhythm. Abdomen soft. No tenderness. Extremities: No edema of feet. LABS: Hemoglobin 10.3, white count 9.6. BUN 6, creatinine 0.562. DIAGNOSTIC IMPRESSION AND PLAN: The patient admitted to the hospital with fever, headaches with question of possible meningitis. However, the patients LP remains to be negative. Cultures are negative as well. Prior to the day before she was admitted to the hospital, the patient did have positive UA with question of possible urinary tract infection versus a viral syndrome, though favor viral syndrome more. Currently on Rocephin and has been afebrile for about 48 hours though with MRI of the lumbosacral spine. Continue supportive treatment. MTDD
[2017-03-29] MEDS: CYCLOBENZAPRINE 10 MG TAB PO PRN (21:35)
[2017-03-30] MEDS: PIPERACILLIN-TAZOBACTAM 3.375 GM in DEXTROSE/WATER 1 50ML.BAG IVPB SCH ×3 (01:03→15:50)
[2017-03-30] MEDS: KETOROLAC 30 MG/ML 1 ML VIAL IVP SCH ×5 (01:03→23:57)
[2017-03-30] MEDS: DEXTROSE 5%-0.9% NACL 1,000 ML IV SCH ×2 (01:04→11:21)
[2017-03-30] MEDS: ALBUTEROL NEBULIZED 2.5 MG/3 ML INHALATION SCH ×7 (01:08→23:06)
[2017-03-30 07:00] LABS: Anion Gap 9 mmol/L; Blood Urea Nitrogen 3 mg/dL (7-17); Calcium 8.7 mg/dL (8.4-10.2); Carbon Dioxide 22 mmol/L (22-30); Chloride 111 mmol/L (98-107); Glucose 104 mg/dL (74-99); Non-African American GFR(MDRD) >60 (>60 ml/min/1.73 sqM); Potassium 3.9 mmol/L (3.5-5.1); Sodium 142 mmol/L (137-145)
--- NOTE | 2017-03-30 08:56 | P.CNPUL ---
History of Present Illness Consult date: 03/30/17 Reason for consult: dyspnea, cough, asthma, hypoxemia, pneumonia, abnormal CXR/ CT Chief complaint: Fever History of present illness: Consult dated 03/30/2017 22-year-old female presented to the emergency room on March 25 with complaints of fever. She also hasn't been feeling well for a couple days. Muscle aches and joint aches. Temperature is 103. Came back also complaining of a headache. Had also been having some nasal congestion and drainage. Probably had but some like a sinus infection and upper respiratory infection. In addition to all of this her asthma was active and alert she was having cough. She was having back pain. The pain was sharp in nature. She had a hard time taking a deep breath. A classic case of pleuritic type chest pain. She did not have a chest x-ray right away but had a number number of other tests done. Anyways it turns out that the patient was evaluated for possible meningitis. She had a lumbar puncture. She had a spinal headache. A blood patch was placed. She's had all sorts of different tests done. Chest x-ray was ordered and clearly showed pneumonia in the right lower lobe. All this relates to the pneumonia in my opinion. Her asthma is likely active as well. Started off as as an upper respiratory infection. I've seen her before. Apparently surgery see her when she was a young girl for asthma. Have not seen her for some time. The patient uses a Ventolin inhaler when necessary and an updraft machine at home with albuterol for her asthma care currently. Not on anything for maintenance and prevention. Review of Systems 12 point review of systems is positive for fever and nasal congestion drainage and facial pain and headache sinus pain cough wheezing shortness of breath phlegm production and pleurisy. Past Medical History Past Medical History: Asthma Additional Past Medical History / Comment(s): Current sinus infection, MISCARRIAGE in january, and 9 months post-. History of Any Multi-Drug Resistant Organisms: None Reported Past Surgical History: Adenoidectomy, Ear Surgery, Tonsillectomy Additional Past Surgical History / Comment(s): ovarian cyst removed, D&C Past Psychological History: No Psychological Hx Reported Smoking Status: Never smoker Past Alcohol Use History: None Reported Past Drug Use History: None Reported - Past Family History Mother Family Medical History: Skin Disorder Additional Family Medical History / Comment(s): Scleroderma, Morphea Medications and Allergies Home Medications Medication Instructions Recorded Confirmed Type Albuterol Inhaler [Ventolin 2 puff INHALATION RT-Q6H PRN 07/08/14 03/26/17 History Inhaler] Acetaminophen Tab [Tylenol Tab] 1,000 mg PO Q6HR PRN 03/24/17 03/26/17 History Ibuprofen [Motrin] 600 mg PO Q6HR PRN 03/24/17 03/26/17 History Allergies Allergy/AdvReac Type Severity Reaction Status Date / Time bee pollen Allergy Severe Anaphylaxis Verified 03/26/17 08:05 walnut Allergy Severe Anaphylaxis Verified 03/26/17 08:05 latex Allergy Rash/Hives Verified 03/26/17 08:05 medroxyprogesterone acetate AdvReac Nausea & Verified 03/26/17 08:05 [From Depo-Provera] Vomiting Physical Exam Osteopathic Statement: *. No significant issues noted on an osteopathic structural exam other than those noted in the History and Physical/Consult. Vitals: Vital Signs Temp Pulse Pulse Pulse Resp BP BP 03/30/17 08:20 98.1 F 68 19 136/89 03/30/17 07:08 80 03/30/17 06:59 80 03/30/17 01:10 20 03/30/17 01:05 97.4 F L 53 L 20 126/76 03/29/17 21:22 20 03/29/17 20:15 98.4 F 81 20 130/79 03/29/17 20:12 80 03/29/17 19:59 80 03/29/17 16:58 98.9 F 71 20 130/89 03/29/17 13:37 78 03/29/17 13:26 77 03/29/17 12:40 65 16 146/94 03/29/17 12:26 63 16 129/83 03/29/17 10:30 61 16 141/87 Pulse Ox 03/30/17 08:20 97 03/30/17 07:08 03/30/17 06:59 03/30/17 01:10 03/30/17 01:05 97 03/29/17 21:22 03/29/17 20:15 98 03/29/17 20:12 03/29/17 19:59 03/29/17 16:58 95 08/23/17 13:37 03/29/17 13:26 03/29/17 12:40 93 L 03/29/17 12:26 93 L 03/29/17 10:30 95 Intake and Output 03/29/17 03/30/17 03/30/17 22:59 06:59 14:59 Output Total 550 1000 Balance -550 -1000 Output: Urine 550 1000 No acute distress, pale. Oriented 3. A little short of breath. HEENT examination is grossly unremarkable. Mucous membranes are moist. Neck supple. Full range of motion. No adenopathy. Cardiovascular examination reveals regular rhythm rate. S1-S2 normal. Lungs reveal coarse rhonchi. Breath sounds are diminished. She cannot take a deep breath because of the pleuritic chest pain. Some crackles at the right base. Some mild expiratory wheezes. Abdomen soft bowel sounds are heard. Extremities are intact. Skin without rash. Neurologic examination is nonfocal. Results - Laboratory Findings CBC and BMP: 03/29/17 06:39 03/30/17 06:19 Abnormal lab findings: Abnormal Labs 03/25/17 03/25/17 03/25/17 20:51 21:10 21:10 WBC 13.7 H Hgb Hct MCV 79.5 L MCHC Neutrophils # 10.7 H Monocytes # 1.4 H Potassium Chloride Carbon Dioxide 21 L BUN Creatinine Glucose POC Glucose (mg/dL) Plasma Lactic Acid Edmundo 0.6 L Calcium C-Reactive Protein 153.8 H Total Protein Albumin Urine Protein Urine Ketones 03/26/17 03/26/17 03/27/17 06:52 06:52 04:00 WBC 12.4 H Hgb Hct MCV MCHC 30.3 L Neutrophils # 9.2 H Monocytes # 1.2 H Potassium Chloride 112 H Carbon Dioxide 17 L BUN Creatinine Glucose 52 L POC Glucose (mg/dL) Plasma Lactic Acid Edmundo Calcium C-Reactive Protein Total Protein 5.6 L Albumin 3.4 L Urine Protein Trace H Urine Ketones 3+ H 03/28/17 03/28/17 03/28/17 05:47 05:47 09:25 WBC Hgb 10.3 L Hct MCV MCHC 30.1 L Neutrophils # Monocytes # Potassium Chloride 108 H Carbon Dioxide 20 L BUN 6 L Creatinine Glucose 59 L POC Glucose (mg/dL) 69 L Plasma Lactic Acid Edmundo Calcium 8.2 L C-Reactive Protein Total Protein Albumin Urine Protein Urine Ketones 03/28/17 03/29/17 03/29/17 10:25 06:39 06:39 WBC Hgb 10.2 L Hct 31.3 L MCV MCHC Neutrophils # Monocytes # Potassium 3.3 L Chloride 112 H Carbon Dioxide 21 L BUN 6 L Creatinine 0.50 L Glucose POC Glucose (mg/dL) 72 L Plasma Lactic Acid Edmundo Calcium C-Reactive Protein Total Protein Albumin Urine Protein Urine Ketones 03/30/17 06:19 WBC Hgb Hct MCV MCHC Neutrophils # Monocytes # Potassium Chloride 111 H Carbon Dioxide BUN 3 L Creatinine 0.45 L Glucose 104 H POC Glucose (mg/dL) Plasma Lactic Acid Edmundo Calcium C-Reactive Protein Total Protein Albumin Urine Protein Urine Ketones - Diagnostic Findings Chest x-ray: image reviewed (Chest x-ray labs medications are all reviewed.) Assessment and Plan (1) Pneumonia Status: Acute (2) Pleurisy Status: Acute (3) Exacerbation of asthma Status: Acute (4) Upper respiratory infection Status: Acute Plan: Plan dated 03/30/2017 This is a patient who clearly has pneumonia. He likely started as an upper respiratory infection causing her asthma to be more active. Chest x-ray clearly shows a right lower lobe infiltrate. Her symptom complex including the muscle aches fever joint aches pleurisy shortness of breath or wheezing cough all related to the pneumonia in the upper respiratory infection. The patient's medications and labs will be reviewed. X-rays are reviewed. Additional recommendations suggestions are forthcoming. Please see my orders. Time with Patient: Greater than 30
--- NOTE | 2017-03-30 08:58 | PN ---
DATE OF SERVICE: 03/29/17 REASON FOR FOLLOW UP: Possible aspiration pneumonia. INTERVAL HISTORY: The patient overall feels better and has improved. The patient did have a blood patch to the lumbar spine site of the LP and that headache has improved. The patient denies significant chest pain. She did have some cough but not bringing up any sputum. No abdominal pain. No diarrhea. On examination, blood pressure 146/94 with a pulse of 65. Temperature 98. She is 93% on 2 L nasal cannula. General description is a young female lying in the bed in no distress. Respiratory system unlabored breathing. Some decreased breath sounds at the bases. No wheeze. Heart S1, S2 regular rate and rhythm. Abdomen soft. No tenderness. LABS: Hemoglobin 10.1, white count 7.2, BUN 6, creatinine 0.50. Chest x- ray done yesterday showed right lower lobe pneumonia. DIAGNOSTIC IMPRESSION AND PLAN: The patient admitted to the hospital with headache and fever, likely viral syndrome now with development of right lower lobe pneumonia question of possible aspiration etiology. Antibiotic will be adjusted to Rocephin and Levaquin. Discontinue Rocephin. We will try to obtain sputum to narrow down antibiotics. Continue supportive care. MTDD
[2017-03-30] MEDS: ENOXAPARIN 40 MG/0.4 ML SYRINGE SQ SCH (10:33)
[2017-03-30] MEDS: LORATADINE-PSEUDOEPH 5-120 MG 1 EACH TAB.ER.12H PO SCH (10:33)
[2017-03-30] MEDS: methylPREDNISolone SOD SUCCI 40 MG/ML 1 ML VIAL IV SCH ×2 (12:16→18:16)
--- NOTE | 2017-03-30 13:11 | P.PN ---
<Arielle Cabrera - Last Filed: 03/30/17 12:56> Progress Note - Text DATE OF SERVICE: 03/29/2017 PRESENTING COMPLAINT: Fever/headache/back pain INTERVAL HISTORY: 22-year-old female presents general malaise weakness with fever, has had it for the past few days. Had some urinary urgency diagnosed with pyelonephritis started on amoxicillin and discharged home, however continues to have intermittent fevers with T-max of 103 Fahrenheit. Spinal tap performed on 03/26 with initiation of Rocephin and vancomycin. 03/30/2017: Patient seen in follow-up, continues to have lower lumbar pain but much improved from previous days. Headache continues with less intensity. Currently sitting up in the bed eating breakfast, eating about 30%. No nausea no vomiting, complains of heaviness in her chest lungs feel "sore". Pulmonology to see the patient today. 03/29/2017: Patient seen in follow-up, continues to have lower lumbar pain and sacral pain with a headache. Headache worse when sitting up. Nauseated and vomiting unable to eat. Afebrile, continues on antibiotic therapy per ID. Patient slated for a blood patch today. Neurology ordered an MRI of the spine and the brain for today. Patient's mood is low, just wants to feel better. 03/28/2017: Patient seen in follow-up, continues to have excruciating lower lumbar and sacral back pain, with headache. Has had nausea and vomiting, has difficulty keeping down liquids/foods. Orthospine has seen the patient, recommended a neuro consult will await their input. Not tolerating her diet, increased IV fluids and added dextrose, requires standby assistance to ambulate. Last BM 03/25/2017. 03/27/2017: Patient seen in follow-up, complains of excruciating lower lumbar and sacral back pain, roughly about where they did a lumbar puncture. Patient does also complain of a severe headache and is unable to move off of the bed screaming and crying in pain. We consulted anesthesia, and orthospine for their input. Patient is tolerating her diet eating about 50%, unable to ambulate without assistance due to the pain. Last BM was 03/25/2017 REVIEW OF SYSTEMS: Done for constitutional ,cardiovascular, GI, pulmonary with relevant findings as above. CURRENT MEDICATIONS [place], ceftriaxone, diphenhydramine, Dilaudid, Motrin, Toradol, Zofran, formoterol, Solu-Medrol, Singulair. PHYSICAL EXAM VITAL SIGNS: Temperature 99.0 pulse 86 respirations 14 blood pressure 122/72, oxygen saturation 87% on room air GENERAL APPEARANCE: Lying in bed, appears comfortable. EYES: Pupils equal. Conjunctiva normal. NECK: JVD not raised. Mass not palpable. RESPIRATORY: Respiratory effort normal. Diminished with rhonchi noted and crackles on the right. CARDIOVASCULAR: First and second sounds normal. No edema. ABDOMEN: Soft. Liver and spleen not palpable. No tenderness. No mass palpable. PSYCHIATRY: Alert and oriented x3. Mood and affect improving. MUSCULOSKELETAL: Tenderness noted to the spinal column at the lumbar and sacral regions, directly to the spine as well as the areas on either side no swelling noted. General body aches. NEUROLOGIC: No numbness or tingling to the extremities, able to do straight leg raises bilaterally with less pain. LYMPHATICS: Tenderness and mild swelling noted to occipital, parotid, superficial cervical, submandibular, submandibular glands. INVESTIGATIONS: Sodium 142, potassium 3.9, chloride 111, BUN 3, creatinine 0.45. ASSESSMENT: -Viral Pneumonia, right lower lobe -Acute asthma exacerbation likely due to upper respiratory infection -Acute upper respiratory infection present on admission -Fever of unknown origin,sepsis and meningitis ruled out, resolved -Viral or bacterial meningitis, cultures negative, ruled out -Lumbar/sacral spine pain, improving -nausea with vomiting unspecified, resolved -Hypokalemia, likely due to decreased food and fluid intake PLAN: Continue antibiotic therapy per ID, anesthesia and neurology continue to follow. Formoterol, Solu-Medrol, Singulair, added to current regimen per pulmonology . Encourage incentive spirometer use. Appetite low, only able to eat about 30% of the meal. IV fluid rate remains the same. Encouraged patient to be up at the bedside for meals and to become more mobile. Discussed plan of care with the patient and she is in agreement. We'll continue to follow closely [employer]AD [employer] MODELING [employer] statement: Patient was seen and examined by nurse practitioner Arielle Cabrera and all elements of the case discussed with attending Dr. Echols <Mo Echols - Last Filed: 08/24/17 23:23> Progress Note - Text Attending note. Date of service-03/30/2017 This patient was seen and examined by me . Discussed the patient with my nurse practitioner Ms. Cabrera. Admitted with what appears to be severely while syndrome. Had a blood patch. Following that spinal headache greatly improved.. Antibiotics changed to IV Zosyn per ID. Patient up and back to the bathroom feeling much better. Fevers have been down. Also received steroid injection for occipital neuralgia per neurology. Headache greatly improved back pain greatly improved On examination: Few basal crackles. Fair air entry . Smiling overall much improved. Investigations: Labs noted Assessment and plan: Right lower lobe pneumonia, probably viral but cannot rule out bacterial component Occipital neuralgia patient having received steroid injection Spinal headache doing well after blood patch Care discussed with the patient and mother at the bedside. Patient doing much better. Also discussed with ID doctor Dr. Covarrubias. Hopefully patient can be switched to Augmentin tomorrow and can be discharged. Overall greatly improved
[2017-03-30 14:26] LABS: Immunoglobulin G 459 mg/dL (700 - 1600)
[2017-03-30] MEDS: LEVOFLOXACIN 500 MG TAB PO SCH (15:48)
[2017-03-30] MEDS: FORMOTEROL FUMARATE 20 MCG/2 ML NEBU INHALATION SCH (18:18)
[2017-03-30] MEDS: BUDESONIDE 1 MG/2 ML NEBU INHALATION SCH (18:18)
[2017-03-30] MEDS ORDERED: MONTELUKAST 10 MG TAB PO SCH (21:00)
[2017-03-31] MEDS: methylPREDNISolone SOD SUCCI 40 MG/ML 1 ML VIAL IV SCH ×2 (00:03→06:00)
[2017-03-31] MEDS: PIPERACILLIN-TAZOBACTAM 3.375 GM in DEXTROSE/WATER 1 50ML.BAG IVPB SCH ×2 (00:05→09:10)
[2017-03-31] MEDS: ALBUTEROL NEBULIZED 2.5 MG/3 ML INHALATION SCH ×3 (04:26→12:13)
[2017-03-31] MEDS: KETOROLAC 30 MG/ML 1 ML VIAL IVP SCH (06:00)
[2017-03-31 07:27] LABS: Anion Gap 10 mmol/L; Blood Urea Nitrogen 7 mg/dL (7-17); Calcium 9.3 mg/dL (8.4-10.2); Carbon Dioxide 25 mmol/L (22-30); Chloride 107 mmol/L (98-107); Glucose 126 mg/dL (74-99); Non-African American GFR(MDRD) >60 (>60 ml/min/1.73 sqM); Sodium 142 mmol/L (137-145)
[2017-03-31 07:40] LABS: Potassium 4.9 mmol/L (3.5-5.1)
[2017-03-31] MEDS: FORMOTEROL FUMARATE 20 MCG/2 ML NEBU INHALATION SCH (08:20)
[2017-03-31] MEDS: BUDESONIDE 1 MG/2 ML NEBU INHALATION SCH (08:20)
[2017-03-31 08:24] VITALS: RESP 16
[2017-03-31] MEDS: ENOXAPARIN 40 MG/0.4 ML SYRINGE SQ SCH (09:10)
[2017-03-31] MEDS: LORATADINE-PSEUDOEPH 5-120 MG 1 EACH TAB.ER.12H PO SCH (09:11)
--- NOTE | 2017-03-31 10:03 | P.PN ---
Subjective Progress note dated 03/31/2017 22-year-old female with history of chronic bronchial asthma, was admitted admitted way back on 03/25/2017. The patient came in with complaints of what sounded to me like an upper respiratory infection/sinus infection complicated by either purulent tracheobronchitis or bronchopneumonia. Chest x-ray which wasn't done on admission but then maybe 3 or 4 days later didn't fact show right -sided infiltrate. This patient has been seen by the ER doctor the hospitalist infectious disease doctor orthopedic physician anesthesiologist and neurologist. Finally, on March 30, I was consulted. The patient has gone through a number different tests including abdominal pelvic computed tomography scan brain computed tomography scan lumbar puncture x-rays of the lumbosacral spine a lumbar MRI and finally a chest x-ray on 03/28 a brain MRI and cervical MRI. The patient's feeling much better today. Doing much better. Wants be discharged home. She'll follow with me in the office. I have not seen her for a number of years for her asthma which is been relatively quiesced on. It appears that she probably has more seasonal disease at this time. She was only using Ventolin when necessary and albuterol as needed. Apparently her asthma is much more significant during her . She might need something for maintenance and prevention. I'll determine that in the office when I see her. I did write a prescription for a Medrol Dosepak to start today. Objective - Vital Signs Vital signs: Vital Signs Temp 98.4 F 03/31/17 08:00 Pulse 50 L 03/31/17 08:00 Resp 16 03/31/17 08:00 BP 130/81 03/31/17 08:00 Pulse Ox 98 03/31/17 08:00 Intake & Output 03/30/17 03/31/17 03/31/17 18:59 06:59 18:59 Intake Total 720 0 Output Total 1000 Balance -280 0 Weight 58 kg Intake: Oral 720 0 Output: Urine 1000 Other: Voiding Method Toilet # Voids 1 - Exam No acute distress, oriented 3. HEENT examination is grossly unremarkable. Mucous membranes are moist. No oral lesions. Neck supple. Full range of motion. No adenopathy or thyromegaly. Cardiovascular examination reveals regular rhythm rate. S1-S2 normal. No S3- S4 or murmur. Lungs reveal a few scattered rhonchi. Some mild expiratory wheezes on the right side. No crackles. Abdomen soft bowel sounds are heard. Extremities are intact. No cyanosis clubbing or edema. Skin without rash. Neurologic examination is nonfocal. - Labs CBC & Chem 7: 03/29/17 06:39 03/31/17 06:45 Labs: Abnormal Lab Results - Last 24 Hours (Table) 03/29/17 03/31/17 Range/Units 06:39 06:45 Creatinine 0.45 L (0.52-1.04) mg/dL Glucose 126 H (74-99) mg/dL Serum Albumin 2,870 L (3500 - 5200) mg/dL IgG 459 L (700 - 1600) mg/dL Assessment and Plan (1) Pneumonia Status: Acute (2) Pleurisy Status: Acute (3) Exacerbation of asthma Status: Acute (4) Upper respiratory infection Status: Acute Plan: Plan dated 03/30/2017 This is a patient who clearly has pneumonia. He likely started as an upper respiratory infection causing her asthma to be more active. Chest x-ray clearly shows a right lower lobe infiltrate. Her symptom complex including the muscle aches fever joint aches pleurisy shortness of breath or wheezing cough all related to the pneumonia in the upper respiratory infection. The patient's medications and labs will be reviewed. X-rays are reviewed. Additional recommendations suggestions are forthcoming. Please see my orders. Plan dated 03/31/2017 The patient could be discharged home today. She should be discharged home on an antibiotic. I'll leave that up to infectious disease to the side. In addition, the patient will need a Medrol Dosepak. He should be started today. I'll see in the office. We'll repeat chest x-ray. I likely will repeat pulmonary function testing. We'll determine at that point whether or not she needs something for maintenance and prevention. Additional recommendations suggestions are forthcoming. Time with Patient: Less than 30
[2017-03-31 12:40] VITALS: BP 125/72; PULSE 96; TEMP 98.5
--- NOTE | 2017-03-31 14:02 | PN ---
DATE OF SERVICE: 03/30/2017 Reason for followup is possible aspiration pneumonia. INTERVAL HISTORY: The patient is afebrile. She is breathing comfortably. She did have some cough, but not bringing any sputum. No chest pain. No abdominal pain. No nausea, vomiting or any diarrhea. On examination, blood pressure is 136/85 with a pulse of 70, temperature 98.7. She is 97% on room air. General description is a young female up in the chair in no distress. RESPIRATORY SYSTEM: Unlabored breathing with decreased breath sounds at the bases. No wheeze. HEART: S1, S2, regular rate and rhythm. ABDOMEN: Soft, no tenderness. LABS: White count 7.2 with a BUN 3, creatinine 0.45. DIAGNOSTIC IMPRESSION AND PLAN: Patient admitted to the hospital with fever and headache with possible viral syndrome with vomiting and subsequently developing a right lower lobe pneumonia and question of possible aspiration etiology. Patient is currently on the Zosyn, that will be continued. Will try to obtain a sputum. If the patient continued to do fairly well, ( ) finish therapy with oral Augmentin with close outpatient followup. MTDD
[2017-03-31 15:25] LABS: Lyme IgG/IgM 0.1 Index; Lyme IgG/IgM Interp NEGATIVE (NEGATIVE)
--- NOTE | 2017-03-31 20:22 | P.DS ---
Providers Date of admission: 03/25/17 23:34 Expected date of discharge: 03/31/17 Attending physician: Mo Echols Consults: 03/26/17 12:47 Consult Anesthesia Stat Consulting Provider: Anesthesia,Services Consult Reason/Comments: spinal tap 03/26/17 16:34 Consult Physician Urgent Consulting Provider: Neva Covarrubias Consult Reason/Comments: fuo Do you want consulting provider notified?: Yes 03/27/17 12:16 Consult Physician Urgent Consulting Provider: Cole Sanchez Consult Reason/Comments: intractible lumbar sacral back pain Do you want consulting provider notified?: Yes 03/27/17 12:19 Consult Anesthesia Stat Consulting Provider: Anesthesia,Services Consult Reason/Comments: s/p spinal tap, intractible headache and spinal pain ?blood patch? 03/27/17 18:22 Consult Physician Routine Consulting Provider: Demario Batista Consult Reason/Comments: severe headaches nad back pain Do you want consulting provider notified?: Yes 03/29/17 18:45 Consult Physician Routine Consulting Provider: Germán Hadley Consult Reason/Comments: new pleural effusion Do you want consulting provider notified?: Yes Primary care physician: Enrique Andrea [facility] Course: FINAL DIAGNOSES: -Right lower lobe pneumonia, probably viral but cannot rule out bacterial component -Acute severe viral syndrome -Occipital neuralgia patient having received steroid injection -Acute intermittent asthma exacerbation likely due to upper respiratory infection -Acute upper respiratory infection present on admission -Fever of unknown origin,sepsis and meningitis ruled out, resolved -Viral or bacterial meningitis, cultures negative, ruled out -Lumbar/sacral spine pain, improving -nausea with vomiting unspecified, resolved -Hypokalemia, likely due to decreased food and fluid intake HOSPTIAL COURSE: 22-year-old female with history of asthma presented after being seen elsewhere for fever weakness and urinary symptoms received treatment returned with with general malaise weakness and fever with urinary urgency and T-max of 103 Fahrenheit. Concerns for meningitis, lumbar puncture performed specimen sent. Patient developed severe back pain and severe headache post-lumbar puncture to the point where the patient was unable to move off the bed. Anesthesia re- consulted, orthospine consulted neurology consulted. Anesthesia took the patient for a blood patch, headache and back pain subsequently improved. Developed shortness of breath and some respiratory symptoms, chest x-ray done revealed pleural effusion. MRI of the head and spine ordered by neurology to rule out other potential causes or other etiologies of back pain also revealed pleural effusions with consolidation to the right lower lobe. Pulmonology consulted and added steroids and nebulized bronchodilators and antibiotic therapy. Patient's breathing improved, has no further headache no fevers no back pain. Ambulatory in the room and plaza ways, tolerating her diet, moved her bowels. Overall condition has improved and patient is anxious to return home. Patient is stable for discharge. PHYSICAL EXAM: CARDIOVASCULAR: First and second sounds noted no edema RESPIRATORY: Fair air entry, few basilar crackles MUSKULOSKELETAL: Mild spinal tenderness at point of entry for lumbar puncture NEUROLOGIC: No headache, no nuchal tenderness, straight leg raises performed easily to 90. Patient was seen and examined by nurse practitioner Arielle Cabrera in all elements of the case discussed with attending Dr. Echols DISPOSITION: Discharge home to the care of her family. Patient Condition at Discharge: Stable Plan - Discharge Summary New Discharge Prescriptions: New Amoxicillin/Potassium Clav [Augmentin 875-125 Tablet] 1 tab PO Q12HR #14 tab Montelukast [Singulair] 10 mg PO HS #30 tab predniSONE 10 mg PO DAILY #30 tab Continue Albuterol Inhaler [Ventolin Hfa Inhaler] 2 puff INHALATION RT-Q6H PRN PRN Reason: Wheezing Ibuprofen [Motrin] 600 mg PO Q6HR PRN PRN Reason: Pain Discontinued Acetaminophen Tab [Tylenol Tab] 1,000 mg PO Q6HR PRN PRN Reason: Pain Discharge Medication List Albuterol Inhaler [Ventolin Hfa Inhaler] 2 puff INHALATION RT-Q6H PRN 07/08/14 [ History] Ibuprofen [Motrin] 600 mg PO Q6HR PRN 03/24/17 [History] Amoxicillin/Potassium Clav [Augmentin 875-125 Tablet] 1 tab PO Q12HR #14 tab [Rx] Montelukast [Singulair] 10 mg PO HS #30 tab 03/31/17 [Rx] predniSONE 10 mg PO DAILY #30 tab 03/31/17 [Rx] Follow up Appointment(s)/Referral(s): Demario Batista MD [STAFF PHYSICIAN] - 04/18/17 2:00 pm Germán Hadley DO [Doctor of Osteopathic Medicine] - 04/07/17 10:15 am Enrique Mendez DO [Primary Care Provider] - 04/03/17 4:00 pm Neva Covarrubias MD [STAFF PHYSICIAN] - 04/06/17 9:30 am Ambulatory/Diagnostic Orders: Basic Metabolic Panel [LAB.AMB] Location: Determined By Patient Complete Blood Count w/diff [LAB.AMB] Location: Determined By Patient Patient Instructions/Handouts: Sinusitis (GEN), Bacterial Pneumonia (DC) Activity/Diet/Wound Care/Special Instructions: Start your steroid by mouth today and follow the directions for the tapering dose. Never stop steroids abruptly. Take your antibiotics as directed. Have your blood drawn on Monday or Monday at the [facility]. Report any difficulty breathing or return of fevers to doctor. If shortness of breath is severe, return to the emergency room. Please review the attached information on your medications and illnesses. Drink plenty of fluids and eat as tolerated. OFF OF WORK UNTIL , AFTER SEEN BY Dr. Hadley. Discharge/Stand Alone Forms: Work/School Release / Restrict Discharge Disposition: HOME SELF-CARE
--- NOTE | 2017-04-01 08:50 | PN ---
DATE OF SERVICE: 03/31/2017 REASON FOR FOLLOW UP: Possible aspiration pneumonia. INTERVAL HISTORY: The patient is afebrile. She is feeling better, breathing comfortably. Cough decreased in intensity. No significant chest pain. No abdominal pain, no nausea, no vomiting or any diarrhea. The headache has completely resolved. On examination: Blood pressure 125/72 with pulse 93. Temperature 98.5. She is 93% on room air. General description is a young female up in the chair in no distress. RESPIRATORY: Unlabored breathing. Clear to auscultation anteriorly. HEART: S1, S2 regular rate and rhythm. ABDOMEN: Soft, no tenderness. LABS: White count is normal. Urine culture is negative. CSF culture has been negative. DIAGNOSTIC IMPRESSION AND PLAN: Patient with right lower lobe pneumonia. Patient admitted to the hospital with headache and vomiting with question of possible aspiration etiology. The patient ( ) Abdirahmann, will finish therapy with oral Augmentin for about a week to 10 days without patient followup. PAULAD
[2017-04-01 21:24] LABS: Lyme Specimen Source Plasma
== END 2017-03-31 14:34 | disposition home or self-care (01) | DRG 194 ==
LOC: EC 20:27 → 6PED 23:34
PROVIDERS: ADMIT Hospitalist; ATTEND Hospitalist
PROC: 009U3ZX Drainage of Spinal Canal, Percutaneous Approach, Diagnostic (ICD-10-PCS; principal; 2017-03-26 13:41)
PROC: 3E0T3BZ Introduction of Anesthetic Agent into Peripheral Nerves and Plexi, Percutaneous Approach (ICD-10-PCS; 2017-03-29)
PROC: 3E0T33Z Introduction of Anti-inflammatory into Peripheral Nerves and Plexi, Percutaneous Approach (ICD-10-PCS; 2017-03-29)
PROC: 3E0R3GC Introduction of Other Therapeutic Substance into Spinal Canal, Percutaneous Approach (ICD-10-PCS; 2017-03-29 10:30)
DX: J15.9 Unspecified bacterial pneumonia (principal); J90 Pleural effusion, not elsewhere classified; R29.1 Meningismus; J45.21 Mild intermittent asthma with (acute) exacerbation; R11.2 Nausea with vomiting, unspecified; H53.2 Diplopia; J12.9 Viral pneumonia, unspecified; E87.6 Hypokalemia; G97.1 Other reaction to spinal and lumbar puncture; M54.81 Occipital neuralgia; T48.6X6A Underdosing of antiasthmatics, initial encounter; M62.830 Muscle spasm of back; M40.56 Lordosis, unspecified, lumbar region; J06.9 Acute upper respiratory infection, unspecified; R50.9 Fever, unspecified; R39.15 Urgency of urination; D72.829 Elevated white blood cell count, unspecified; H92.02 Otalgia, left ear; R09.02 Hypoxemia; H53.149 Visual discomfort, unspecified; B34.9 Viral infection, unspecified; J02.9 Acute pharyngitis, unspecified; G44.40 Drug-induced headache, not elsewhere classified, not intractable; Z71.3 Dietary counseling and surveillance; Z63.79 Other stressful life events affecting family and household; Z88.8 Allergy status to other drugs, medicaments and biological substances; Z87.42 Personal history of other diseases of the female genital tract; Z91.138 Patient's unintentional underdosing of medication regimen for other reason; Z91.14 Patient's other noncompliance with medication regimen; Z87.440 Personal history of urinary (tract) infections; Z86.69 Personal history of other diseases of the nervous system and sense organs; Z91.030 Bee allergy status; Z91.040 Latex allergy status; Z91.018 Allergy to other foods; Z83.2 Family history of diseases of the blood and blood-forming organs and certain disorders involving the immune mechanism; Y84.9 Medical procedure, unspecified as the cause of abnormal reaction of the patient, or of later complication, without mention of misadventure at the time of the procedure; Y84.4 Aspiration of fluid as the cause of abnormal reaction of the patient, or of later complication, without mention of misadventure at the time of the procedure
CPT/HCPCS: 36415; 62270; 62273; 64405; 70450; 70551; 71020; 72114; 72148; 72156; 72157; 74177; 80048; 80053; 81003; 82040; 82042; 82784; 82945; 83605; 83916; 84157; 85025; 86140; 86308; 86618; 87070; 87086; 87205; 87476; 87529; 89050; 94640; 94760; 96361; 96365; 99284

== ENCOUNTER 2017-07-03 11:09 | Emergency (ER) | payer OTHER ==
--- NOTE | 2017-07-03 12:20 | ED ---
General Adult HPI - General Chief complaint: Dental/Oral Stated complaint: Jaw Problems Time Seen by Provider: 07/03/17 12:04 Source: patient, RN notes reviewed Mode of arrival: ambulatory Limitations: no limitations - History of Present Illness Initial comments: This is a 22-year-old female who presents to the emergency department with chief complaint of TMJ dislocation. 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 She states that the joint pops in and out of place multiple times per week and she is usually able to get it back into place herself. She states that last night her left TMJ popped out of place and she was unable to get it back into place. She states that she is unable to fully open or close her mouth. She is unable to eat because her back teeth are unable to touch each other. She states it is much too painful to fully close or open her mouth. Denies fever, chills, chest pain, shortness of breath, abdominal pain, nausea or vomiting, constipation or diarrhea, dysuria or hematuria, numbness or tingling, headache or vision changes. - Related Data Home Medications Medication Instructions Recorded Confirmed Albuterol Inhaler [Ventolin Hfa 2 puff INHALATION RT-Q6H PRN 07/08/14 03/26/17 Inhaler] Ibuprofen [Motrin] 600 mg PO Q6HR PRN 03/24/17 03/26/17 Previous Rx's Medication Instructions Recorded Amoxicillin/Potassium Clav 1 tab PO Q12HR #14 tab 03/31/17 [Augmentin 875-125 Tablet] Montelukast [Singulair] 10 mg PO HS #30 tab 03/31/17 predniSONE 10 mg PO DAILY #30 tab 03/31/17 Sulfamethox-Tmp 800-160Mg [Bactrim 1 each PO Q12HR #6 tab 06/11/17 Ds] Allergies Allergy/AdvReac Type Severity Reaction Status Date / Time bee pollen Allergy Severe Anaphylaxis Verified 07/03/17 11:12 walnut Allergy Severe Anaphylaxis Verified 07/03/17 11:12 latex Allergy Rash/Hives Verified 07/03/17 11:12 medroxyprogesterone acetate AdvReac Nausea & Verified 07/03/17 11:12 [From Depo-Provera] Vomiting Review of Systems ROS Statement: Those systems with pertinent positive or pertinent negative responses have been documented in the HPI. ROS Other: All systems not noted in ROS Statement are negative. Past Medical History Past Medical History: Asthma Additional Past Medical History / Comment(s): Current sinus infection, MISCARRIAGE, TMJ History of Any Multi-Drug Resistant Organisms: None Reported Past Surgical History: Adenoidectomy, Ear Surgery, Tonsillectomy Additional Past Surgical History / Comment(s): ovarian cyst removed, D&C Past Psychological History: No Psychological Hx Reported Smoking Status: Never smoker Past Alcohol Use History: None Reported Past Drug Use History: None Reported - Past Family History Mother Family Medical History: Skin Disorder Additional Family Medical History / Comment(s): Scleroderma, Morphea General Exam - General Exam Comments Initial Comments: General: Awake and alert, well-developed; in no apparent distress. HEENT: Head atraumatic, normocephalic. Pupils are equal, round and reactive to light. Extraocular movements intact. Oropharynx moist without erythema or exudate. Tenderness on palpation of left TMJ. Patient unable to fully open or close her mouth due to pain. No popping or clicking noted. Neck: Supple. Normal ROM. Cardiovascular: Regular rate and rhythm. No murmurs, rubs or gallops. Chest symmetrical. Respiratory: Lungs clear to auscultation bilaterally. No wheezes, rales or rhonchi. Normal respiratory effort with no use of accessory muscles. Skin: [place], warm and dry without rashes or lesions. Neurological: Alert and oriented x3. CN II-XII grossly intact. Speech is fluent and answers are appropriate. No focal neuro deficits. Psychiatric: Normal mood and affect. No overt signs of depression or anxiety noted. Limitations: no limitations Course Vital Signs 07/03/17 11:10 Temperature 97.5 F L Pulse Rate 68 Respiratory 20 Rate Blood Pressure 137/94 O2 Sat by Pulse 98 Oximetry Medical Decision Making - Medical Decision Making This is a 22-year-old female who presents to the emergency department for evaluation of TMJ dislocation. Patient has a history of TMJ syndrome and she states that her joint pops in and out a couple times per week. She was unable to pop it back in last night and she complains that she is unable to fully open or close her mouth. X-ray of the mandible showed no dislocation of the TMJ. There is relatively normal alignment. Discussed findings with patient. She'll be discharged home with recommendation to take anti-inflammatories and to follow up with dentist or doctor who manages her TMJ syndrome. Patient is in agreement voices understanding. All questions answered. - Radiology Data Radiology results: report reviewed Mandible x-ray findings: There appears to be asymmetrical alignment of the temporomandibular joints. No clear evidence for dislocation. Nasal septum is midline. Paranasal sinuses appear relatively pneumatized. Orbits are symmetrical. Mastoid air cells are well pneumatized. Impression: Radiographically, there is relatively symmetric appearance of the TMJs. Disposition Clinical Impression: Temporomandibular joint disorder Disposition: HOME SELF-CARE Condition: Good Instructions: Temporomandibular Disorder (ED) Additional Instructions: Please take 600 mg of ibuprofen every 6 hours. Please follow up with your doctor or dentist who manages TMJ disorder. Please follow up with primary care provider within 1-2 days. Return to emergency department if symptoms should worsen or any concerns arise. Referrals: Enrique Mendez DO [Primary Care Provider] - 1-2 days Time of Disposition: 13:19
--- NOTE | 2017-07-03 12:56 | XR ---
EXAMINATION TYPE: XR mandible complete DATE OF EXAM: 07/03/2017 COMPARISON: NONE HISTORY: 22-year-old female with pain, reports left TMJ dislocation TECHNIQUE: 5 views FINDINGS: There appears to be symmetrical alignment of the temporomandibular joints. No clear evidence for disl ocation. Nasal septum is midline. Paranasal sinuses appear relatively pneumatized. Orbits are symmetr ical. Mastoid air cells are well pneumatized. IMPRESSION: Radiographically, there is relatively symmetric appearance to the TMJs.
[2017-07-03 13:18] VITALS: BP 142/72; PULSE 72; RESP 18; TEMP 96.8
== END 2017-07-03 13:24 | disposition home or self-care (01) ==
LOC: EC 11:09
DX: M26.602 Left temporomandibular joint disorder, unspecified (principal); Z88.8 Allergy status to other drugs, medicaments and biological substances; Z91.018 Allergy to other foods; Z91.030 Bee allergy status; Z91.040 Latex allergy status
CPT/HCPCS: 70110; 99283

== ENCOUNTER 2017-08-25 17:21 | Inpatient (IN) | payer OTHER ==
[2017-08-25] MEDS ORDERED: ACETAMINOPHEN TAB 500 MG TAB PO STA (17:44)
--- NOTE | 2017-08-25 17:48 | ED ---
Abdominal Pain HPI - General Chief Complaint: Abdominal Pain Stated Complaint: POSS UTI, FEVER, 8-9 WEEKS Time Seen by Provider: 08/25/17 17:32 Source: patient, RN notes reviewed, old records reviewed Mode of arrival: ambulatory Limitations: no limitations - History of Present Illness Initial Comments: This patient is a 22-year-old female currently 8-9 weeks presents today with 2 weeks of fevers, chills, sore throat, earache, urinary symptoms and lower back pain. Patient reports that she has been admitted for pyelonephritis in the past, she does when she has urinary tract infection. She states that she is currently breast-feeding as well from her first child. She states that she's noticed some areas of erythema over her left breast. She states that that seemed to subside today compared to yesterday. Patient states that she hasn't had any recent Tylenol. She reports that she's not had any testing of her at this time. She states that she has had all her vaccines up-to-date. Surgical history includes D&C, tonsillectomy. - Related Data Home Medications Medication Instructions Recorded Confirmed Albuterol Nebulized [Ventolin 2.5 mg INHALATION RT-QID PRN 08/25/17 08/25/17 Nebulized] Allergies Allergy/AdvReac Type Severity Reaction Status Date / Time bee pollen Allergy Severe Anaphylaxis Verified 08/25/17 17:46 walnut Allergy Severe Anaphylaxis Verified 08/25/17 17:46 latex Allergy Rash/Hives Verified 08/25/17 17:46 medroxyprogesterone acetate AdvReac Nausea & Verified 08/25/17 17:46 [From Depo-Provera] Vomiting Review of Systems ROS Statement: Those systems with pertinent positive or pertinent negative responses have been documented in the HPI. ROS Other: All systems not noted in ROS Statement are negative. Past Medical History Past Medical History: Asthma Additional Past Medical History / Comment(s): Current sinus infection, MISCARRIAGE, TMJ History of Any Multi-Drug Resistant Organisms: None Reported Past Surgical History: Adenoidectomy, Ear Surgery, Tonsillectomy Additional Past Surgical History / Comment(s): ovarian cyst removed, D&C Past Psychological History: No Psychological Hx Reported Smoking Status: Never smoker Past Alcohol Use History: None Reported Past Drug Use History: None Reported - Past Family History Mother Family Medical History: Skin Disorder Additional Family Medical History / Comment(s): Scleroderma, Morphea General Exam - General Exam Comments Initial Comments: This patient is a 22-year-old female. No acute distress. Limitations: no limitations General appearance: alert, in no apparent distress Head exam: Present: atraumatic, normocephalic, normal inspection Eye exam: Present: normal appearance, PERRL, EOMI. Absent: scleral icterus, conjunctival injection, periorbital swelling ENT exam: Present: normal exam, mucous membranes moist Neck exam: Present: normal inspection. Absent: tenderness, meningismus, lymphadenopathy Respiratory exam: Present: normal lung sounds bilaterally. Absent: respiratory distress, wheezes, rales, rhonchi, stridor Cardiovascular Exam: Present: normal rhythm, tachycardia (Patient has tachycardic at 116 bpm.), normal heart sounds, other (swelling and tenderness over left breast. ). Absent: regular rate, systolic murmur, diastolic murmur, rubs, gallop, clicks GI/Abdominal exam: Present: soft, normal bowel sounds. Absent: distended, tenderness, guarding, rebound, rigid Extremities exam: Present: normal inspection, full ROM, normal capillary refill. Absent: tenderness, pedal edema, joint swelling, calf tenderness Back exam: Present: CVA tenderness (R), CVA tenderness (L) Neurological exam: Present: alert, oriented X3, CN II-XII intact Psychiatric exam: Present: normal affect, normal mood Skin exam: Present: warm, dry, intact, normal color. Absent: rash Course Vital Signs 08/25/17 08/25/17 17:28 19:13 Temperature 98.1 F Pulse Rate 116 H 105 H Respiratory 22 18 Rate Blood Pressure 119/66 102/51 O2 Sat by Pulse 99 98 Oximetry Medical Decision Making - Medical Decision Making This patient is a 22-year-old female presents emergency Department with multiple complaints clearing of breath or congestion, dysuria, bilateral flank pain, and left breast tenderness and swelling. Patient is currently 7 weeks . She is currently breast-feeding her previous child. Patient arrives with a temperature of 99.5. Chills. She does have a white blood cell count of 14.8 with a left shift of 12.8. Patient's urinalysis does not show any significant infection but does have many bacteria. We will do a culture of this at this time. Patient's case discussed with Dr. Jain. Recommends a mission for pyelonephritis. Patient started on Rocephin. I discussed with this Dr. Kelly. Patient will also receive an ultrasound of her left breast to rule out any abscess. Patient reports that she followed with her previous pregnancies with Dr. Jarvis. - Lab Data Result diagrams: 08/25/17 18:07 08/25/17 18:07 Lab Results 08/25/17 08/25/17 08/25/17 Range/Units 18:07 18:07 18:07 WBC 14.9 H (4.0-11.0) k/uL RBC 4.73 (3.80-5.40) m/uL Hgb 12.5 (11.4-16.0) gm/dL Hct 37.0 (34.0-46.0) % MCV 78.3 L (80.0-100.0) fL MCH 26.4 (25.0-35.0) pg MCHC 33.7 (31.0-37.0) g/dL RDW 14.3 (11.5-15.5) % Plt Count 251 (150-450) k/uL Neutrophils % 87 % Lymphocytes % 8 % Monocytes % 4 % Eosinophils % 1 % Basophils % 0 % Neutrophils # 12.9 H (1.3-7.7) k/uL Lymphocytes # 1.1 (1.0-4.8) k/uL Monocytes # 0.5 (0-1.0) k/uL Eosinophils # 0.2 (0-0.7) k/uL Basophils # 0.0 (0-0.2) k/uL PT (9.0-12.0) sec INR (<1.2) APTT (22.0-30.0) sec Sodium 139 (137-145) mmol/L Potassium 3.8 (3.5-5.1) mmol/L Chloride 103 (98-107) mmol/L Carbon Dioxide 23 (22-30) mmol/L Anion Gap 13 mmol/L BUN 14 (7-17) mg/dL Creatinine 0.60 (0.52-1.04) mg/dL Est GFR (MDRD) Af Amer >60 (>60 ml/min/1.73 sqM) Est GFR (MDRD) Non-Af >60 (>60 ml/min/1.73 sqM) Glucose 94 (74-99) mg/dL Plasma Lactic Acid Edmundo (0.7-2.0) mmol/L Calcium 9.9 (8.4-10.2) mg/dL Total Bilirubin 0.1 L (0.2-1.3) mg/dL AST 19 (14-36) U/L ALT 29 (9-52) U/L Alkaline Phosphatase 86 (38-126) U/L Total Protein 7.0 (6.3-8.2) g/dL Albumin 4.3 (3.5-5.0) g/dL Urine Color Urine Appearance (Clear) Urine pH (5.0-8.0) Ur Specific Alexander (1.001-1.035) Urine Protein (Negative) Urine Glucose (UA) (Negative) Urine Ketones (Negative) Urine Blood (Negative) Urine Nitrite (Negative) Urine Bilirubin (Negative) Urine Urobilinogen (<2.0) mg/dL Ur Leukocyte Esterase (Negative) Urine RBC (0-5) /hpf Urine WBC (0-5) /hpf Ur Squamous Epith Cells (0-4) /hpf Urine Bacteria (None) /hpf Urine Mucus (None) /hpf Influenza Type A RNA Not Detected (Not Detectd) Influenza Type B (PCR) Not Detected (Not Detectd) 08/25/17 08/25/17 08/25/17 Range/Units 18:07 18:07 18:07 WBC (4.0-11.0) k/uL RBC (3.80-5.40) m/uL Hgb (11.4-16.0) gm/dL Hct (34.0-46.0) % MCV (80.0-100.0) fL MCH (25.0-35.0) pg MCHC (31.0-37.0) g/dL RDW (11.5-15.5) % Plt Count (150-450) k/uL Neutrophils % % Lymphocytes % % Monocytes % % Eosinophils % % Basophils % % Neutrophils # (1.3-7.7) k/uL Lymphocytes # (1.0-4.8) k/uL Monocytes # (0-1.0) k/uL Eosinophils # (0-0.7) k/uL Basophils # (0-0.2) k/uL PT 9.4 (9.0-12.0) sec INR 0.9 (<1.2) APTT 23.5 (22.0-30.0) sec Sodium (137-145) mmol/L Potassium (3.5-5.1) mmol/L Chloride (98-107) mmol/L Carbon Dioxide (22-30) mmol/L Anion Gap mmol/L BUN (7-17) mg/dL Creatinine (0.52-1.04) mg/dL Est GFR (MDRD) Af Amer (>60 ml/min/1.73 sqM) Est GFR (MDRD) Non-Af (>60 ml/min/1.73 sqM) Glucose (74-99) mg/dL Plasma Lactic Acid Edmundo 1.0 (0.7-2.0) mmol/L Calcium (8.4-10.2) mg/dL Total Bilirubin (0.2-1.3) mg/dL AST (14-36) U/L ALT (9-52) U/L Alkaline Phosphatase (38-126) U/L Total Protein (6.3-8.2) g/dL Albumin (3.5-5.0) g/dL Urine Color Yellow Urine Appearance Cloudy H (Clear) Urine pH 6.0 (5.0-8.0) Ur Specific Alexander 1.021 (1.001-1.035) Urine Protein Trace H (Negative) Urine Glucose (UA) Negative (Negative) Urine Ketones Negative (Negative) Urine Blood Negative (Negative) Urine Nitrite Negative (Negative) Urine Bilirubin Negative (Negative) Urine Urobilinogen <2.0 (<2.0) mg/dL Ur Leukocyte Esterase Negative (Negative) Urine RBC 3 (0-5) /hpf Urine WBC 4 (0-5) /hpf Ur Squamous Epith Cells 4 (0-4) /hpf Urine Bacteria Rare H (None) /hpf Urine Mucus Moderate H (None) /hpf Influenza Type A RNA (Not Detectd) Influenza Type B (PCR) (Not Detectd) - Radiology Data Radiology results: report reviewed Ultrasound shows viable IUP measuring 7 weeks and 5 days. Disposition Clinical Impression: , Acute pyelonephritis, Acute mastitis of left breast Disposition: ADMITTED IP TO THIS HOSP Condition: Stable Referrals: Enrique Mendez DO [Primary Care Provider] - 1-2 days Time of Disposition: 19:39
[2017-08-25] MEDS: SODIUM CHLORIDE 0.9% 500 ML IV SCH ×2 (18:13→18:14)
[2017-08-25 18:23] LABS: Basophils % (A) 0 %; Eosinophils # (A) 0.2 k/uL (0-0.7); Eosinophils % (A) 1 %; HGB 12.5 gm/dL (11.4-16.0); Lymphocytes # (A) 1.1 k/uL (1.0-4.8); Lymphocytes % (A) 8 %; MCH 26.4 pg (25.0-35.0); MCHC 33.7 g/dL (31.0-37.0); MCV 78.3 fL (80.0-100.0); Mean Platelet Volume 7.6; Monocytes # (A) 0.5 k/uL (0-1.0); Monocytes % (A) 4 %; Neutrophils # (A) 12.9 k/uL (1.3-7.7); Neutrophils % (A) 87 %; Platelet Count 251 k/uL (150-450); RBC 4.73 m/uL (3.80-5.40); RDW 14.3 % (11.5-15.5); WBC 14.9 k/uL (4.0-11.0)
[2017-08-25 18:26] LABS: Appearance,Urine Cloudy (Clear); Bacteria,Urine Rare /hpf; Bilirubin,Urine Negative (Negative); Blood,Urine Negative (Negative); Color,Urine Yellow; Glucose,Urine (UA) Negative (Negative); Ketones,Urine Negative (Negative); Leukocyte Esterase,Urine Negative (Negative); Mucus,Urine Moderate /hpf; Nitrite,Urine Negative (Negative); Protein,Urine Trace (Negative); RBC,Urine 3 /hpf (0-5); Specific Gravity,Urine 1.021 (1.001-1.035); Squamous Epithelial Cell,Urine 4 /hpf (0-4); Urobilinogen,Urine <2.0 mg/dL (<2.0); WBC,Urine 4 /hpf (0-5)
[2017-08-25 18:33] LABS: ALT 29 U/L (9-52); AST 19 U/L (14-36); Albumin 4.3 g/dL (3.5-5.0); Alkaline Phosphatase 86 U/L (38-126); Anion Gap 13 mmol/L; Blood Urea Nitrogen 14 mg/dL (7-17); Calcium 9.9 mg/dL (8.4-10.2); Carbon Dioxide 23 mmol/L (22-30); Chloride 103 mmol/L (98-107); Glucose 94 mg/dL (74-99); INR 0.9 (<1.2); Partial Thromboplastin Time 23.5 sec (22.0-30.0); Potassium 3.8 mmol/L (3.5-5.1); Prothrombin Time 9.4 sec (9.0-12.0); Sodium 139 mmol/L (137-145); Total Bilirubin 0.1 mg/dL (0.2-1.3)
--- NOTE | 2017-08-25 18:57 | US ---
EXAMINATION TYPE: US OB <=14 wks transvag DATE OF EXAM: 08/25/2017 COMPARISON: NONE CLINICAL HISTORY: Pain. fever, UTI EXAM PERFORMED: OBTA and TV EXAM MEASUREMENTS: GESTATIONAL AGE / DATING Physician Established: Not yet established Dates by LMP: (9 weeks/0 days) EDC: 03/30/2018 Dates by First Scan: No previous this is first scan Dates by Current Scan for: (7 weeks/5 days) EDC: 04/08/2018 MATERNAL ANATOMY Uterus: 12.1 x 8.3 x 6.4cm Right Ovary: 3.3 x 2.6 x 2.0cm Left Ovary: 2.5 x 1.7 x 1.2cm Post CDS / Adnexa: wnl Presence of free fluid: no Presence of corpus luteal cyst: yes, right ovary = 1.7cm Presence of subchorionic bleed: no GESTATION / SURVEY CRL: 1.4 (7 weeks/5 days) MSD: wnl Yolk Sac (normal less than 6mm): 0.3cm Heart Rate: 171 bpm Rhythm: Normal IUP: Viable IUP Date of LMP: 06/23/2017 Beta HcG (if available): pending IMPRESSION: The ultrasound gestational age 7 weeks 5 days. I see no complicating process.
[2017-08-25] MEDS ORDERED: diphenhydrAMINE 50 MG/ML 1 ML VIAL IVP STA (19:09)
[2017-08-25] MEDS ORDERED: BUPIVACAINE (PF) 0.5% 30 ML VIAL SQ STA (19:15)
[2017-08-25] MEDS ORDERED: HYDROmorphone 2 MG/ML 1 ML SYRINGE IVP STA (19:15)
[2017-08-25] MEDS ORDERED: cefTRIAXone IN SWFI 1,000 MG/10 ML SYRINGE IVP STA (19:16)
[2017-08-25] MEDS ORDERED: NALOXONE 0.4 MG/ML 1 ML VIAL IV PRN (19:40)
[2017-08-25] MEDS ORDERED: ACETAMINOPHEN TAB 325 MG TAB PO PRN (19:40)
[2017-08-25] MEDS ORDERED: ONDANSETRON 4 MG/2 ML VIAL IVP PRN (19:40)
[2017-08-25] MEDS: SODIUM CHLORIDE 0.9% 1,000 ML IV SCH (20:55)
[2017-08-25 22:18] VITALS: BMI 19.2
[2017-08-26] MEDS: SODIUM CHLORIDE 0.9% 1,000 ML IV SCH (04:05)
[2017-08-26 06:42] VITALS: RESP 18
[2017-08-26 07:41] VITALS: BP 108/69; PULSE 68; TEMP 98.7
--- NOTE | 2017-08-26 08:23 | USB ---
EXAMINATION TYPE: US breast complete LT , DATE OF EXAM ORDERED: 08/26/2017 HISTORY: Pain. COMPARISON: None. FINDINGS: No cystic or solid lesion is seen. IMPRESSION: NORMAL LEFT BREAST ULTRASOUND. NEGATIVE, BI-RADS 1.
--- NOTE | 2017-08-26 09:57 | P.OBCN ---
History of Present Illness Consult date: 08/26/17 Reason for consult: other (7 5/7 wks, possible pyelonephritis, possible mastitis ) History of present illness: 22 year old female LMP 06/23 SDD 04/07/18 at 7 6/7 wks. Presented from home with fever (undocumented), L breast pain, , and "scratchy bladder". Denies F/S/C, nausea or emesis, hematuria or vaginal bleeding. U/S in ER reveals viable vickers IUP, SDD 04/07/18. U/S L breast ordered, (-). PMHx: pyelonephritis 2 years ago. PSHx: D and C x2 for Spontaneous AB, laparoscopic L ovarian cystectomy, T and A as child, eustacian tubes as child. Meds: none Allergies: MPA, bee pollen, walnuts, latex FHx: unremarkable ObHx: femal 2016 7# 12 oz with L perineal tear () , SpAb x3 GynHx: menarche 15, irregular cycles, denies GC, Chlamydia, HSV or HPV. SHx: , nonsmoker, denies drug or alcohol use. U/A trace protein, rare bacteria and moderate mucous. Flu (-), WBC 14.9. Hb: 12.5 On Exam 5'7", general exam WNL. 98.7, P:68, R: 18, 108/69 Chest clear A and P, Brearsts engorged with slight erythema, minimally tender. Abdomen soft, nontender, active bowel sounds, no CVAT. Imp: 7 6/7 wks viable IUP, suspect early mastitis. Plan: All labs drawn. Consider second dose Rocephin prior to discharge , then may discharge home after clearance by medical staff. Keflex 500mg po BID x10d, Urine culture pending. Folic acid containg PNV daily. Follow up with OB of choice this week, call for appointment. Review of Systems negative except as in HPI. Past Medical History Past Medical History: Asthma Additional Past Medical History / Comment(s): Current sinus infection, MISCARRIAGE, TMJ, pyelonephrits April 2017 History of Any Multi-Drug Resistant Organisms: None Reported Past Surgical History: Adenoidectomy, Ear Surgery, Tonsillectomy Additional Past Surgical History / Comment(s): ovarian cyst removed, D&C x2 Past Psychological History: No Psychological Hx Reported Smoking Status: Never smoker Past Alcohol Use History: None Reported Past Drug Use History: None Reported - Past Family History Mother Family Medical History: Skin Disorder Additional Family Medical History / Comment(s): Scleroderma, Morphea Medications and Allergies Home Medications Medication Instructions Recorded Confirmed Type Albuterol Nebulized [Ventolin 2.5 mg INHALATION RT-QID PRN 08/25/17 08/25/17 History Nebulized] Allergies Allergy/AdvReac Type Severity Reaction Status Date / Time bee pollen Allergy Severe Anaphylaxis Verified 08/25/17 17:46 walnut Allergy Severe Anaphylaxis Verified 08/25/17 17:46 latex Allergy Rash/Hives Verified 08/25/17 17:46 medroxyprogesterone acetate AdvReac Nausea & Verified 08/25/17 17:46 [From Depo-Provera] Vomiting Exam - Vital Signs Vital signs: Vital Signs Temp Pulse Pulse Resp BP BP Pulse Ox 08/26/17 07:40 98.7 F 68 18 108/69 99 08/26/17 04:15 99.0 F 72 18 99 08/25/17 21:22 98.3 F 80 24 100/61 98 08/25/17 20:51 80 16 106/51 97 08/25/17 19:13 105 H 18 102/51 98 08/25/17 17:28 98.1 F 116 H 22 119/66 99 Intake and Output 08/25/17 08/26/17 08/26/17 22:59 06:59 14:59 Intake Total 300 Output Total 200 300 Balance -200 0 Intake: Oral 300 Output: Urine 200 300 Other: Voiding Method Toilet Toilet # Voids 1 1 Weight 55.6 kg see HPI, please Results Result Diagrams: 08/25/17 18:07 08/25/17 18:07 Abnormal Lab Results - Last 24 Hours (Table) 08/25/17 08/25/17 08/25/17 Range/Units 18:07 18:07 18:07 WBC 14.9 H (4.0-11.0) k/uL MCV 78.3 L (80.0-100.0) fL Neutrophils # 12.9 H (1.3-7.7) k/uL Total Bilirubin 0.1 L (0.2-1.3) mg/dL Urine Appearance Cloudy H (Clear) Urine Protein Trace H (Negative) Urine Bacteria Rare H (None) /hpf Urine Mucus Moderate H (None) /hpf Microbiology - Last 24 Hours (Table) 08/25/17 18:07 Urine Culture - Preliminary Urine,Voided 08/25/17 18:07 Group A Strep Throat Culture - Preliminary Throat Assessment and Plan Plan: See dictation. Keflex 500mg BID x10 days, prescription given. Folic acid containing vitamin daily. Stop . follow up with OB office of choice this week. Time with Patient: Greater than 30
[2017-08-26] MEDS ORDERED: cefTRIAXone IN SWFI 1,000 MG/10 ML SYRINGE IVP ONE (11:06)
[2017-08-26 11:09] LABS: Urine Alcohol Negative (Negative); Urine Barbiturate Negative (Negative); Urine Cocaine Negative (Negative); Urine Methadone Negative (Negative); Urine Opiates Negative (Negative); Urine Phencyclidine Negative (Negative)
--- NOTE | 2017-08-26 16:20 | P.HPIM ---
History of Present Illness H&P Date: 08/26/17 Chief Complaint: Left Breast pain Mrs. Sood is a 22-year-old female who is 7 weeks , with a past medical history of asthma coming into the hospital with a chief complaint of left breast pain and also discomfort in her lower abdomen going on for the past 1 day. Patient is currently breast-feeding her [id number] daughter and noticed swelling of her left breast and also increased tenderness for the past 1 day. She denies having any history of injuries or insect bites. Regarding the lower abdominal discomfort- patient describes a scratchy bladder. No hematuria or dysuria. No complaints of any back pain. Mild fever. No chills or rigors. She denies having any active ongoing complaints. Review of Systems REVIEW OF SYSTEMS: PSYCH: Normal psychiatric exam NEURO:No c/o weakness of the extremties, No facial droop, No speech abnormalities. VASCULAR: Peripheral nervous system within the normal limits no edema HEMATOLOGIC: No history of easy bleeding and bruising . No recent infections . RESPIRATORY: No cough, No SOB, No chest discomfort. IMMUNE: No infections INTEGUMENT: no rashes OPHTHALMOLOGIC: No blurry vision and no eye discharge : No dysuria or hematuria HAND TOUCH UP PAINTER: No bleeding PV CARDIAC: No chest pain , shortness of breath , paroxysmal nocturnal dyspnea MUSCULOSKELETAL : No Aches or pains in the joints or muscles. GI: No abdominal pain, Nausea or vomiting. No constipation or diarrhea. Past Medical History Past Medical History: Asthma Additional Past Medical History / Comment(s): Current sinus infection, MISCARRIAGE, TMJ, pyelonephrits April 2017 History of Any Multi-Drug Resistant Organisms: None Reported Past Surgical History: Adenoidectomy, Ear Surgery, Tonsillectomy Additional Past Surgical History / Comment(s): ovarian cyst removed, D&C x2 Past Psychological History: No Psychological Hx Reported Smoking Status: Never smoker Past Alcohol Use History: None Reported Past Drug Use History: None Reported - Past Family History Mother Family Medical History: Skin Disorder Additional Family Medical History / Comment(s): Scleroderma, Morphea Medications and Allergies Home Medications Medication Instructions Recorded Confirmed Type Albuterol Nebulized [Ventolin 2.5 mg INHALATION RT-QID PRN 08/25/17 08/25/17 History Nebulized] Allergies Allergy/AdvReac Type Severity Reaction Status Date / Time bee pollen Allergy Severe Anaphylaxis Verified 08/25/17 17:46 walnut Allergy Severe Anaphylaxis Verified 08/25/17 17:46 latex Allergy Rash/Hives Verified 08/25/17 17:46 medroxyprogesterone acetate AdvReac Nausea & Verified 08/25/17 17:46 [From Depo-Provera] Vomiting Physical Exam Vitals: Vital Signs Temp Pulse Pulse Resp BP BP Pulse Ox 08/26/17 07:40 98.7 F 68 18 108/69 99 08/26/17 04:15 99.0 F 72 18 99 08/25/17 21:22 98.3 F 80 24 100/61 98 08/25/17 20:51 80 16 106/51 97 08/25/17 19:13 105 H 18 102/51 98 08/25/17 17:28 98.1 F 116 H 22 119/66 99 Intake and Output 08/25/17 08/26/17 08/26/17 22:59 06:59 14:59 Intake Total 300 Output Total 200 300 Balance -200 0 Intake: Oral 300 Output: Urine 200 300 Other: Voiding Method Toilet Toilet # Voids 1 1 Weight 55.6 kg GENERAL EXAM GEN. APPEARANCE: alert, in no apparent distress HEAD EXAM: atraumatic, normocephalic, normal inspection EYE EXAM: normal appearance, PERRL, EOMI. Absent: scleral icterus, conjunctival injection, periorbital swelling ENT EXAM: normal exam, mucous membranes moist NECK EXAM: normal inspection. Absent: tenderness, meningismus, full ROM, lymphadenopathy RESPIRATORY EXAM: normal lung sounds bilaterally. Absent: respiratory distress , wheezes, rales, rhonchi, stridor CARDIOVASCULAR EXAM: regular rate, normal rhythm, normal heart sounds. Absent : systolic murmur, diastolic murmur, rubs, gallop, clicks GI/ABDOMINAL EXAM: soft, normal bowel sounds. Absent: distended, tenderness, guarding, rebound, rigid EXTREMITIES EXAM: normal inspection, full ROM, normal capillary refill. Absent : tenderness, pedal edema, joint swelling, calf tenderness BACK EXAM: normal inspection NEUROLOGICAL EXAM: alert, oriented X3, CN II-XII intact, motor sensory deficit PSYCHIATRIC EXAM: normal affect, normal mood LEFT BREAST EXAM _ + tenderness, mild erythema, milky discharge form the breast - as she is breast feeding Results CBC & Chem 7: 08/25/17 18:07 01/19/18 18:07 Labs: Abnormal Lab Results - Last 24 Hours (Table) 08/25/17 08/25/17 08/25/17 Range/Units 18:07 18:07 18:07 WBC 14.9 H (4.0-11.0) k/uL MCV 78.3 L (80.0-100.0) fL Neutrophils # 12.9 H (1.3-7.7) k/uL Total Bilirubin 0.1 L (0.2-1.3) mg/dL Urine Appearance Cloudy H (Clear) Urine Protein Trace H (Negative) Urine Bacteria Rare H (None) /hpf Urine Mucus Moderate H (None) /hpf Microbiology - Last 24 Hours (Table) 08/25/17 18:07 Urine Culture - Preliminary Urine,Voided 08/25/17 18:07 Group A Strep Throat Culture - Preliminary Throat Thrombosis Risk Factor Assmnt - Choose All That Apply Each Factor Represents 1 point: or Other Risk Factors: No Other congenital or acquired thrombophilia - If yes, enter type in comment: No Thrombosis Risk Factor Assessment Total Risk Factor Score: 1 Thrombosis Risk Factor Assessment Level: Low Risk Assessment and Plan Assessment: Left breast mastitis 7 weeks History of asthma Plan: Patient was given ceftriaxone in the ED. UA negative for any nitrites or leukocyte esterase. Patient was evaluated by [facility] and they recommended Keflex 500 mg twice a day for 10 days, which the patient is being discharged home on. Time with Patient: Greater than 30
--- NOTE | 2017-08-28 17:42 | P.DS ---
Providers Date of admission: 08/25/17 20:40 Attending physician: Mike Kelly Consults: 08/25/17 19:40 Consult Physician Stat Consulting Provider: Trinity Liao Consult Reason/Comments: Do you want consulting provider notified?: Yes, Notify in am Primary care physician: Enrique [facility] Course: Chief Complaint: Left Breast pain Mrs. Sood is a 22-year-old female who is 7 weeks , with a past medical history of asthma coming into the hospital with a chief complaint of left breast pain and also discomfort in her lower abdomen going on for the past 1 day. Patient is currently breast-feeding her [id number] daughter and noticed swelling of her left breast and also increased tenderness for the past 1 day. She denies having any history of injuries or insect bites. Regarding the lower abdominal discomfort- patient describes a scratchy bladder. No hematuria or dysuria. No complaints of any back pain. Mild fever. No chills or rigors. She denies having any active ongoing complaints. Review of Systems REVIEW OF SYSTEMS: PSYCH: Normal psychiatric exam NEURO:No c/o weakness of the extremties, No facial droop, No speech abnormalities. VASCULAR: Peripheral nervous system within the normal limits no edema HEMATOLOGIC: No history of easy bleeding and bruising . No recent infections . RESPIRATORY: No cough, No SOB, No chest discomfort. IMMUNE: No infections INTEGUMENT: no rashes OPHTHALMOLOGIC: No blurry vision and no eye discharge : No dysuria or hematuria PHYSICIAN IN PRIVATE PRACTICE: No bleeding PV CARDIAC: No chest pain , shortness of breath , paroxysmal nocturnal dyspnea MUSCULOSKELETAL : No Aches or pains in the joints or muscles. GI: No abdominal pain, Nausea or vomiting. No constipation or diarrhea. PHYSICAL EXAM - GEN. APPEARANCE: alert, in no apparent distress HEAD EXAM: atraumatic, normocephalic, normal inspection EYE EXAM: normal appearance, PERRL, EOMI. Absent: scleral icterus, conjunctival injection, periorbital swelling ENT EXAM: normal exam, mucous membranes moist NECK EXAM: normal inspection. Absent: tenderness, meningismus, full ROM, lymphadenopathy RESPIRATORY EXAM: normal lung sounds bilaterally. Absent: respiratory distress , wheezes, rales, rhonchi, stridor CARDIOVASCULAR EXAM: regular rate, normal rhythm, normal heart sounds. Absent : systolic murmur, diastolic murmur, rubs, gallop, clicks GI/ABDOMINAL EXAM: soft, normal bowel sounds. Absent: distended, tenderness, guarding, rebound, rigid EXTREMITIES EXAM: normal inspection, full ROM, normal capillary refill. Absent : tenderness, pedal edema, joint swelling, calf tenderness BACK EXAM: normal inspection NEUROLOGICAL EXAM: alert, oriented X3, CN II-XII intact, motor sensory deficit PSYCHIATRIC EXAM: normal affect, normal mood LEFT BREAST EXAM _ + tenderness, mild erythema, milky discharge form the breast - as she is breast feeding DISCHARGE DIAGNOSIS Left breast mastitis 7 weeks History of asthma Plan: Patient was given ceftriaxone in the ED. UA negative for any nitrites or leukocyte esterase. Patient was evaluated by [facility] and they recommended Keflex 500 mg twice a day for 10 days, which the patient is being discharged home on. Addendum done to this note on 08/28/2017 at 5 PM; patient was called at the given number and informed about the strep throat results that have been positive. Also discussed with her that she was discharged on Keflex for 10 days which should cover these organisms. Patient Condition at Discharge: Stable Plan - Discharge Summary New Discharge Prescriptions: No Action Albuterol Nebulized [Ventolin Nebulized] 2.5 mg INHALATION RT-QID PRN PRN Reason: Shortness Of Breath Discharge Medication List Albuterol Nebulized [Ventolin Nebulized] 2.5 mg INHALATION RT-QID PRN 08/25/17 [ History] Follow up Appointment(s)/Referral(s): Enrique Mendez DO [Primary Care Provider] - 1-2 days Activity/Diet/Wound Care/Special Instructions: Continue diet as tolerated. Drink plenty of fluids. Practice good hand washing. Start Keflex tonight after rx is filled and then continue twice daily for 10 days. Use a probiotic. Continue taking a vitamin containing folic acid. Stop breast feeding to ensure proper nutrients to growing fetus. Follow up with OBGYN of your choosing this upcoming week. Discharge Disposition: HOME SELF-CARE
== END 2017-08-26 12:15 | disposition home or self-care (01) | DRG 781 ==
LOC: EC 17:21 → 6PED 20:40
PROVIDERS: ADMIT Hospitalist; ATTEND Hospitalist
DX: O91.211 Nonpurulent mastitis associated with pregnancy, first trimester (principal); O99.511 Diseases of the respiratory system complicating pregnancy, first trimester; J02.0 Streptococcal pharyngitis; J45.909 Unspecified asthma, uncomplicated; Z3A.09 9 weeks gestation of pregnancy; Z88.8 Allergy status to other drugs, medicaments and biological substances; Z91.030 Bee allergy status; Z91.040 Latex allergy status; Z91.018 Allergy to other foods; Z79.899 Other long term (current) drug therapy; Z90.89 Acquired absence of other organs
CPT/HCPCS: 36415; 76801; 76817; 80053; 80306; 81001; 83605; 85025; 85610; 85730; 86780; 86850; 86900; 86901; 87040; 87081; 87086; 87340; 87502; 96361; 96374; 96375; 99285

== ENCOUNTER 2017-08-30 14:16 | Emergency (ER) | payer OTHER ==
[2017-08-30] MEDS ORDERED: METOCLOPRAMIDE 5 MG/ML 2 ML VIAL IVP STA (15:43)
[2017-08-30] MEDS ORDERED: SODIUM CHLORIDE 0.9% 1,000 ML IV STA ×2 (15:43→17:08)
[2017-08-30] MEDS ORDERED: cefTRIAXone IN SWFI 1,000 MG/10 ML SYRINGE IVP STA (15:43)
[2017-08-30] MEDS ORDERED: ACETAMINOPHEN TAB 500 MG TAB PO STA (15:43)
[2017-08-30 15:52] LABS: Basophils % (A) 0 %; Eosinophils # (A) 0.1 k/uL (0-0.7); Eosinophils % (A) 1 %; HCT 37.5 % (34.0-46.0); HGB 12.4 gm/dL (11.4-16.0); Lymphocytes # (A) 0.8 k/uL (1.0-4.8); Lymphocytes % (A) 4 %; MCH 25.8 pg (25.0-35.0); MCV 78.3 fL (80.0-100.0); Mean Platelet Volume 7.5; Monocytes # (A) 0.8 k/uL (0-1.0); Monocytes % (A) 4 %; Neutrophils # (A) 16.4 k/uL (1.3-7.7); Neutrophils % (A) 90 %; Platelet Count 258 k/uL (150-450); RBC 4.78 m/uL (3.80-5.40); RDW 14.5 % (11.5-15.5); WBC 18.3 k/uL (4.0-11.0)
--- NOTE | 2017-08-30 15:56 | ED ---
General Adult HPI - General Chief complaint: Nausea/Vomiting/Diarrhea Stated complaint: vomiting/diarrhea/fever-revisit Time Seen by Provider: 08/30/17 15:16 Source: patient, family, RN notes reviewed Mode of arrival: ambulatory Limitations: no limitations - History of Present Illness Initial comments: 22-year-old female presents to the emergency department with a chief complaint of nausea vomiting and diarrhea. Patient was diagnosed with strep but she did not take the Maisha back is they gave her nausea vomiting diarrhea shortly after. She states that she has had a fever as well. They state they're concerned because she is 8 weeks . They state that the patient is clearly not having any other complaints. They're concerned due to the fact she was called and told chest. Patient doctor's advice as well as the fact that she started to have this nausea vomiting and diarrhea and abdominal cramping. She states the cramping comes and goes. She is no vaginal bleeding or discharge with this. Patient denies any recent fever, chills, shortness of breath, chest pain, back pain, numbness or tingling, dysuria or hematuria, constipation or diarrhea , headaches or visual changes, or any other current symptoms. - Related Data Home Medications Medication Instructions Recorded Confirmed Albuterol Nebulized [Ventolin 2.5 mg INHALATION RT-QID PRN 08/25/17 08/30/17 Nebulized] Allergies Allergy/AdvReac Type Severity Reaction Status Date / Time bee pollen Allergy Severe Anaphylaxis Verified 08/30/17 15:23 walnut Allergy Severe Anaphylaxis Verified 08/30/17 15:23 latex Allergy Rash/Hives Verified 08/30/17 15:23 cephalexin [From Keflex] AdvReac Nausea & Verified 08/30/17 15:23 Vomiting & Diarrhea medroxyprogesterone acetate AdvReac Nausea & Verified 08/30/17 15:23 [From Depo-Provera] Vomiting Review of Systems ROS Statement: Those systems with pertinent positive or pertinent negative responses have been documented in the HPI. ROS Other: All systems not noted in ROS Statement are negative. Past Medical History Past Medical History: Asthma Additional Past Medical History / Comment(s): Current sinus infection, MISCARRIAGE, TMJ, pyelonephrits April 2017 History of Any Multi-Drug Resistant Organisms: None Reported Past Surgical History: Adenoidectomy, Ear Surgery, Tonsillectomy Additional Past Surgical History / Comment(s): ovarian cyst removed, D&C x2 Past Psychological History: No Psychological Hx Reported Smoking Status: Never smoker Past Alcohol Use History: None Reported Past Drug Use History: None Reported - Past Family History Mother Family Medical History: Skin Disorder Additional Family Medical History / Comment(s): Scleroderma, Morphea General Exam - General Exam Comments Initial Comments: General: The patient is awake and alert, in no distress, and does not appear acutely ill. Eye: Pupils are equal, round and reactive to light, extra-ocular movements are intact; there is normal conjunctiva bilaterally. No signs of icterus. Ears, nose, mouth and throat: There are moist mucous membranes. Neck: The neck is supple, there is no tenderness. Cardiovascular: There is a regular rate and rhythm. No murmur, rub or gallop is appreciated. Respiratory: Lungs are clear to auscultation, respirations are non-labored, breath sounds are equal. No wheezes, stridor, rales, or rhonchi. Gastrointestinal: Soft, non-distended, non-tender abdomen without masses or organomegaly noted. There is no rebound or guarding present. No CVA tenderness. Bowel sounds are unremarkable. Back: There is no tenderness to palpation in the midline. There is no obvious deformity. No rashes noted. Musculoskeletal: Normal ROM, no tenderness, There is no pedal edema. There is no calf tenderness or swelling. Sensation intact. Pulses equal bilaterally 2+. Neurological: CN II-XII intact, There are no obvious motor or sensory deficits. Coordination appears grossly intact. Speech is normal. Skin: Skin is warm and dry and no rashes or lesions are noted. Psychiatric: Cooperative, appropriate mood & affect, normal judgment. Limitations: no limitations Course Vital Signs 08/30/17 08/30/17 14:25 17:47 Temperature 100.0 F H 98.5 F Pulse Rate 118 H 72 Respiratory 20 20 Rate Blood Pressure 127/80 99/55 O2 Sat by Pulse 99 96 Oximetry Medical Decision Making - Medical Decision Making 22-year-old female presents to the emergency Department chief complaint of abdominal pain nausea vomiting and diarrhea. This time lab work and results of been reviewed. Patient is feeling better. We did give HER-2 liters of fluid. This time we did send a stool culture which we discussed follow-up on. At this time we did discuss that her hemoglobin is stable with the mother is some blood in her stool. We did discuss continuing to watch this when to follow-up return parameters. We discussed the importance of hydration. We did discuss halfway and all questions. Patient stated that she understood and she is in agreement this plan. All questions have been answered. She will be discharged. - Lab Data Result diagrams: 08/30/17 15:40 08/30/17 15:40 Lab Results 08/30/17 08/30/17 08/30/17 Range/Units 15:40 15:40 15:40 WBC 18.3 H (4.0-11.0) k/uL RBC 4.78 (3.80-5.40) m/uL Hgb 12.4 (11.4-16.0) gm/dL Hct 37.5 (34.0-46.0) % MCV 78.3 L (80.0-100.0) fL MCH 25.8 (25.0-35.0) pg MCHC 33.0 (31.0-37.0) g/dL RDW 14.5 (11.5-15.5) % Plt Count 258 (150-450) k/uL Neutrophils % 90 % Lymphocytes % 4 % Monocytes % 4 % Eosinophils % 1 % Basophils % 0 % Neutrophils # 16.4 H (1.3-7.7) k/uL Lymphocytes # 0.8 L (1.0-4.8) k/uL Monocytes # 0.8 (0-1.0) k/uL Eosinophils # 0.1 (0-0.7) k/uL Basophils # 0.0 (0-0.2) k/uL Sodium 138 (137-145) mmol/L Potassium 4.0 (3.5-5.1) mmol/L Chloride 103 (98-107) mmol/L Carbon Dioxide 21 L (22-30) mmol/L Anion Gap 14 mmol/L BUN 11 (7-17) mg/dL Creatinine 0.48 L (0.52-1.04) mg/dL Est GFR (MDRD) Af Amer >60 (>60 ml/min/1.73 sqM) Est GFR (MDRD) Non-Af >60 (>60 ml/min/1.73 sqM) Glucose 79 (74-99) mg/dL Calcium 9.8 (8.4-10.2) mg/dL Total Bilirubin 0.4 (0.2-1.3) mg/dL AST 18 (14-36) U/L ALT 31 (9-52) U/L Alkaline Phosphatase 91 (38-126) U/L Total Protein 6.8 (6.3-8.2) g/dL Albumin 4.2 (3.5-5.0) g/dL Amylase 74 (30-110) U/L Lipase 88 (23-300) U/L Urine Color Yellow Urine Appearance Cloudy H (Clear) Urine pH 6.0 (5.0-8.0) Ur Specific [place] 1.021 (1.001-1.035) Urine Protein Trace H (Negative) Urine Glucose (UA) Negative (Negative) Urine Ketones 4+ H (Negative) Urine Blood Negative (Negative) Urine Nitrite Negative (Negative) Urine Bilirubin Negative (Negative) Urine Urobilinogen <2.0 (<2.0) mg/dL Ur Leukocyte Esterase Small H (Negative) Urine RBC 1 (0-5) /hpf Urine WBC 7 H (0-5) /hpf Ur Squamous Epith Cells 9 H (0-4) /hpf Urine Bacteria Occasional H (None) /hpf Hyaline Casts 3 H (0-2) /lpf Urine Mucus Many H (None) /hpf Stool Occult Blood (Negative) 08/30/17 Range/Units 16:04 WBC (4.0-11.0) k/uL RBC (3.80-5.40) m/uL Hgb (11.4-16.0) gm/dL Hct (34.0-46.0) % MCV (80.0-100.0) fL MCH (25.0-35.0) pg MCHC (31.0-37.0) g/dL RDW (11.5-15.5) % Plt Count (150-450) k/uL Neutrophils % % Lymphocytes % % Monocytes % % Eosinophils % % Basophils % % Neutrophils # (1.3-7.7) k/uL Lymphocytes # (1.0-4.8) k/uL Monocytes # (0-1.0) k/uL Eosinophils # (0-0.7) k/uL Basophils # (0-0.2) k/uL Sodium (137-145) mmol/L Potassium (3.5-5.1) mmol/L Chloride (98-107) mmol/L Carbon Dioxide (22-30) mmol/L Anion Gap mmol/L BUN (7-17) mg/dL Creatinine (0.52-1.04) mg/dL Est GFR (MDRD) Af Amer (>60 ml/min/1.73 sqM) Est GFR (MDRD) Non-Af (>60 ml/min/1.73 sqM) Glucose (74-99) mg/dL Calcium (8.4-10.2) mg/dL Total Bilirubin (0.2-1.3) mg/dL AST (14-36) U/L ALT (9-52) U/L Alkaline Phosphatase (38-126) U/L Total Protein (6.3-8.2) g/dL Albumin (3.5-5.0) g/dL Amylase (30-110) U/L Lipase (23-300) U/L Urine Color Urine Appearance (Clear) Urine pH (5.0-8.0) Ur Specific [place] (1.001-1.035) Urine Protein (Negative) Urine Glucose (UA) (Negative) Urine Ketones (Negative) Urine Blood (Negative) Urine Nitrite (Negative) Urine Bilirubin (Negative) Urine Urobilinogen (<2.0) mg/dL Ur Leukocyte Esterase (Negative) Urine RBC (0-5) /hpf Urine WBC (0-5) /hpf Ur Squamous Epith Cells (0-4) /hpf Urine Bacteria (None) /hpf Hyaline Casts (0-2) /lpf Urine Mucus (None) /hpf Stool Occult Blood Positive H (Negative) Disposition Clinical Impression: Nausea & vomiting, Diarrhea, Dehydration Disposition: HOME SELF-CARE Condition: Stable Instructions: Acute Nausea and Vomiting (ED) Additional Instructions: Please use medication as discussed. Please follow up with family doctor if symptoms have not improved over the next two days. Please return to the emergency room if your symptoms increase or worsen or for any other concerns. Referrals: Enrique Mendez DO [Primary Care Provider] - 1-2 days Time of Disposition: 17:52
[2017-08-30 16:04] LABS: ALT 31 U/L (9-52); AST 18 U/L (14-36); Albumin 4.2 g/dL (3.5-5.0); Alkaline Phosphatase 91 U/L (38-126); Amylase 74 U/L (30-110); Anion Gap 14 mmol/L; Blood Urea Nitrogen 11 mg/dL (7-17); Calcium 9.8 mg/dL (8.4-10.2); Carbon Dioxide 21 mmol/L (22-30); Chloride 103 mmol/L (98-107); Glucose 79 mg/dL (74-99); Lipase 88 U/L (23-300); Sodium 138 mmol/L (137-145); Total Bilirubin 0.4 mg/dL (0.2-1.3); Total Protein 6.8 g/dL (6.3-8.2)
[2017-08-30 16:23] LABS: Appearance,Urine Cloudy (Clear); Bacteria,Urine Occasional /hpf; Bilirubin,Urine Negative (Negative); Blood,Urine Negative (Negative); Color,Urine Yellow; Glucose,Urine (UA) Negative (Negative); Hyaline Casts,Urine 3 /lpf (0-2); Ketones,Urine 4+ (Negative); Leukocyte Esterase,Urine Small (Negative); Mucus,Urine Many /hpf; Nitrite,Urine Negative (Negative); Protein,Urine Trace (Negative); RBC,Urine 1 /hpf (0-5); Specific Gravity,Urine 1.021 (1.001-1.035); Squamous Epithelial Cell,Urine 9 /hpf (0-4); Urobilinogen,Urine <2.0 mg/dL (<2.0); WBC,Urine 7 /hpf (0-5)
[2017-08-30 18:29] VITALS: BP 113/59; PULSE 64; RESP 17; TEMP 98.3
== END 2017-08-30 18:38 | disposition home or self-care (01) ==
LOC: EC 14:16
DX: O99.281 Endocrine, nutritional and metabolic diseases complicating pregnancy, first trimester (principal); E86.0 Dehydration; O99.89 Other specified diseases and conditions complicating pregnancy, childbirth and the puerperium; R19.7 Diarrhea, unspecified; Z98.890 Other specified postprocedural states; Z3A.08 8 weeks gestation of pregnancy; Z88.1 Allergy status to other antibiotic agents; Z91.040 Latex allergy status; Z91.018 Allergy to other foods; Z88.8 Allergy status to other drugs, medicaments and biological substances
CPT/HCPCS: 99284; 96374; 96375; 96361 ×3; 36415; 80053; 82150; 83690; 85025; 82272; 81001; 87086; 87045; 87046; J2765; J0696

== ENCOUNTER 2017-09-14 20:55 | Emergency (ER) | payer OTHER ==
--- NOTE | 2017-09-14 23:10 | ED ---
General Adult HPI - General Chief complaint: Abdominal Pain Stated complaint: cramping/back pain 10 wks preg Time Seen by Provider: 09/14/17 22:49 Source: patient Mode of arrival: ambulatory Limitations: no limitations - History of Present Illness Initial comments: Edith is a 22yo female currently 10w4d with a single intrauterine confirmed on ultrasound. Patient presents to the emergency department today for evaluation of severe lower abdominal cramping with pain radiating to her back. Patient reports that she was at work today when she developed significant cramping similar to labor pains. Patient denies any vaginal bleeding or discharge. She denies any dysuria, hematuria or urinary frequency. She denies any flank pain or history of kidney stones. she reports that at the time of arrival to the emergency department her pain is not as severe as it was earlier in the evening. However because of her history of recurrent miscarriages of unknown origin she didn't come to the emergency department for evaluation. - Related Data Home Medications Medication Instructions Recorded Confirmed Albuterol Nebulized [Ventolin 2.5 mg INHALATION RT-QID PRN 08/25/17 09/14/17 Nebulized] Previous Rx's Medication Instructions Recorded Pnv No.95/Ferrous Fum/Folic AC 1 each PO DAILY #90 tablet 09/15/17 [ Multivitamin Tablet] Allergies Allergy/AdvReac Type Severity Reaction Status Date / Time bee pollen Allergy Severe Anaphylaxis Verified 09/14/17 23:06 walnut Allergy Severe Anaphylaxis Verified 09/14/17 23:06 latex Allergy Rash/Hives Verified 09/14/17 23:06 cephalexin [From Keflex] AdvReac Nausea & Verified 09/14/17 23:06 Vomiting & Diarrhea medroxyprogesterone acetate AdvReac Nausea & Verified 09/14/17 23:06 [From Depo-Provera] Vomiting Review of Systems ROS Statement: Those systems with pertinent positive or pertinent negative responses have been documented in the HPI. ROS Other: All systems not noted in ROS Statement are negative. Constitutional: Denies: fever, chills Respiratory: Denies: cough, dyspnea Cardiovascular: Denies: chest pain, palpitations Endocrine: Denies: fatigue Gastrointestinal: Reports: abdominal pain. Denies: nausea, vomiting, diarrhea, constipation Genitourinary: Denies: urgency, dysuria, frequency, hematuria, discharge Musculoskeletal: Reports: back pain Skin: Denies: rash, lesions Neurological: Denies: headache, weakness Psychiatric: Denies: anxiety, depression Hematological/Lymphatic: Denies: easy bleeding, easy bruising Past Medical History Past Medical History: Asthma Additional Past Medical History / Comment(s): Current sinus infection, MISCARRIAGE, TMJ, pyelonephrits April 2017 History of Any Multi-Drug Resistant Organisms: None Reported Past Surgical History: Adenoidectomy, Ear Surgery, Tonsillectomy Additional Past Surgical History / Comment(s): ovarian cyst removed, D&C x2 Past Psychological History: No Psychological Hx Reported Smoking Status: Never smoker Past Alcohol Use History: None Reported Past Drug Use History: None Reported - Past Family History Mother Family Medical History: Skin Disorder Additional Family Medical History / Comment(s): Scleroderma, Morphea General Exam Limitations: no limitations General appearance: alert, in no apparent distress Head exam: Present: atraumatic, normocephalic Eye exam: Present: normal appearance ENT exam: Present: normal exam Neck exam: Present: full ROM Respiratory exam: Present: normal lung sounds bilaterally. Absent: respiratory distress Cardiovascular Exam: Present: regular rate, normal rhythm GI/Abdominal exam: Present: soft. Absent: distended, tenderness, guarding, rebound, rigid Rectal exam: Present: deferred Extremities exam: Present: normal inspection Back exam: Present: normal inspection Neurological exam: Present: alert, oriented X3 Psychiatric exam: Present: normal affect, normal mood Skin exam: Present: warm, dry Course Vital Signs 09/14/17 20:56 Temperature 98.1 F Pulse Rate 78 Respiratory 20 Rate Blood Pressure 139/63 O2 Sat by Pulse 99 Oximetry - Reevaluation(s) Reevaluation #1: 09/15/17 00:08 patient returned from ultrasound, in no acute distress. Patient able to provide a new urine sample was clean catch. Medical Decision Making - Medical Decision Making patient was seen and evaluated, history was obtained from the patient and review of medical record patient with pelvic cramping with no vaginal bleeding or discharge, no concern for sexual transmitted infections. Does have a history of recurrent miscarriages. Urinalysis, urine culture and a pelvic ultrasound were ordered ultrasound reveals a single intrauterine gestation at expected dates with a heart rate of 161 no acute findings ultrasound results were discussed with the patient and her partner at bedside who expressed relief. 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 As well as broad ligament pain which occurs in . Patient states that she experienced similar pain in her previous but not until she is further along. I discussed with her that broad ligament pain can occur earlier and subsequent pregnancies. Patient's breast understanding of this. I advised the patient to practice pelvic rest until she is evaluated by her OB. In addition patient states she is not currently taking any vitamins, I advised her that it's very important that she do so and I will prescribe some. Initial urinalysis was not a clean catch and was noted to have multiple squamous epithelium, a clean-catch urinalysis was requested and patient was educated on how to provide a clean catch Repeat urinalysis revealed no evidence of acute urinary tract infection she was discharged home with prescription for vitamins, advised to maintain pelvic rest and follow up with her OB Dr. Jarvis. all questions pertaining to care were answered to the best of my ability the patient was discharged home in stable condition. - Lab Data Lab Results 09/14/17 09/15/17 Range/Units 22:50 00:12 Urine Color Yellow Yellow Urine Appearance Cloudy H Clear (Clear) Urine pH 6.5 7.0 (5.0-8.0) Ur Specific [place] 1.015 1.011 (1.001-1.035) Urine Protein Trace H Negative (Negative) Urine Glucose (UA) Negative Negative (Negative) Urine Ketones Negative Negative (Negative) Urine Blood Negative Negative (Negative) Urine Nitrite Negative Negative (Negative) Urine Bilirubin Negative Negative (Negative) Urine Urobilinogen <2.0 <2.0 (<2.0) mg/dL Ur Leukocyte Esterase Moderate H Negative (Negative) Urine RBC <1 (0-5) /hpf Urine WBC 11 H (0-5) /hpf Ur Squamous Epith Cells 11 H (0-4) /hpf Urine Bacteria Few H (None) /hpf Urine Mucus Few H (None) /hpf Disposition Clinical Impression: Disposition: HOME SELF-CARE Condition: Good Additional Instructions: Start taking a vitamin Follow up with your OB next week for re-evaluation Prescriptions: Pnv No.95/Ferrous Fum/Folic AC [ Multivitamin Tablet] 1 each PO DAILY # 90 tablet Referrals: Enrique Mendez DO [Primary Care Provider] - 1-2 days Time of Disposition: 00:37
[2017-09-14 23:11] LABS: Appearance,Urine Cloudy (Clear); Bacteria,Urine Few /hpf; Bilirubin,Urine Negative (Negative); Blood,Urine Negative (Negative); Color,Urine Yellow; Glucose,Urine (UA) Negative (Negative); Ketones,Urine Negative (Negative); Leukocyte Esterase,Urine Moderate (Negative); Mucus,Urine Few /hpf; Nitrite,Urine Negative (Negative); PH, Urine 6.5 (5.0-8.0); Protein,Urine Trace (Negative); RBC,Urine <1 /hpf (0-5); Specific Gravity,Urine 1.015 (1.001-1.035); Squamous Epithelial Cell,Urine 11 /hpf (0-4); Urobilinogen,Urine <2.0 mg/dL (<2.0); WBC,Urine 11 /hpf (0-5)
--- NOTE | 2017-09-15 00:01 | US ---
EXAMINATION TYPE: US OB <= 14 wk fetus DATE OF EXAM: 09/14/2017 COMPARISON: NONE CLINICAL HISTORY: Pain. Cramping EXAM PERFORMED: Transabdominal (TA) EXAM MEASUREMENTS: GESTATIONAL AGE / DATING Physician Established: (10 weeks/4 days) EDC: 04/08/2018 Dates by LMP: (12 weeks/0 days) EDC: 03/30/2018 Dates by First Scan: (7 weeks/5 days) EDC: 04/08/2018 Dates by Current Scan for: (10 weeks/6 days) EDC: 04/06/2018 MATERNAL ANATOMY Uterus: 14.2 x 8.5 x 11.0 cm Post CDS / Adnexa: wnl Presence of free fluid: no Presence of corpus luteal cyst: no Presence of subchorionic bleed: no GESTATION / SURVEY CRL: 3.9 cm (10 weeks/6 days) Yolk Sac (normal less than 6mm): 5mm Heart Rate: 161 bpm Rhythm: Normal IUP: Viable IUP Viable IUP 10w6d JACQUI 04/06/2018 HR 161 BPM IMPRESSION: There is satisfactory development compared to last exam of 08/25/2017.
[2017-09-15 00:26] LABS: Appearance,Urine Clear (Clear); Bilirubin,Urine Negative (Negative); Blood,Urine Negative (Negative); Color,Urine Yellow; Glucose,Urine (UA) Negative (Negative); Ketones,Urine Negative (Negative); Leukocyte Esterase,Urine Negative (Negative); Nitrite,Urine Negative (Negative); Protein,Urine Negative (Negative); Specific Gravity,Urine 1.011 (1.001-1.035); Urobilinogen,Urine <2.0 mg/dL (<2.0)
[2017-09-15 00:47] VITALS: BP 123/67; PULSE 99; RESP 18; TEMP 97.4
== END 2017-09-15 00:47 | disposition home or self-care (01) ==
LOC: EC 20:55
DX: O26.891 Other specified pregnancy related conditions, first trimester (principal); R10.2 Pelvic and perineal pain; Z3A.10 10 weeks gestation of pregnancy; Z88.1 Allergy status to other antibiotic agents; Z91.030 Bee allergy status; Z91.018 Allergy to other foods; Z91.040 Latex allergy status; Z88.8 Allergy status to other drugs, medicaments and biological substances
CPT/HCPCS: 76801; 81001; 81003; 87086; 99284

== ENCOUNTER 2017-09-18 19:54 | Emergency (ER) | payer OTHER ==
[2017-09-18 20:02] VITALS: BP 128/88; RESP 18; TEMP 99.4
[2017-09-18] MEDS ORDERED: ACETAMINOPHEN TAB 500 MG TAB PO STA (20:12)
[2017-09-18 20:16] VITALS: PULSE 103
--- NOTE | 2017-09-18 20:20 | ED ---
General Adult HPI - General Chief complaint: ENT Stated complaint: poss strep throat/fever Time Seen by Provider: 09/18/17 20:03 Source: patient, RN notes reviewed Mode of arrival: ambulatory Limitations: no limitations - History of Present Illness Initial comments: Patient's 22-year-old female who presents emergency room today with a chief complaint of a sore throat over the last 3 days. She does admit that she seems somewhat spots seen the back of her throat and tongue. Patient admits that hurts when she swallows. She denies cough. She does admit that she is 11 weeks . She denies any abdominal pain or vaginal bleeding or discharge. Denies any other complaints associated symptoms. Patient denies any recent fever, chills, shortness of breath, chest pain, back pain, abdominal pain , nausea or vomiting, numbness or tingling, headaches or visual changes, or any other complaints. - Related Data Home Medications Medication Instructions Recorded Confirmed Albuterol Nebulized [Ventolin 2.5 mg INHALATION RT-QID PRN 08/25/17 09/14/17 Nebulized] Previous Rx's Medication Instructions Recorded Pnv No.95/Ferrous Fum/Folic AC 1 each PO DAILY #90 tablet 09/15/17 [ Multivitamin Tablet] Amoxicillin 500 mg PO Q8H 10 Days day 09/18/17 Allergies Allergy/AdvReac Type Severity Reaction Status Date / Time bee pollen Allergy Severe Anaphylaxis Verified 09/18/17 20:02 walnut Allergy Severe Anaphylaxis Verified 09/18/17 20:02 latex Allergy Rash/Hives Verified 09/18/17 20:02 cephalexin [From Keflex] AdvReac Nausea & Verified 09/18/17 20:02 Vomiting & Diarrhea medroxyprogesterone acetate AdvReac Nausea & Verified 09/18/17 20:02 [From Depo-Provera] Vomiting Review of Systems ROS Statement: Those systems with pertinent positive or pertinent negative responses have been documented in the HPI. ROS Other: All systems not noted in ROS Statement are negative. Past Medical History Past Medical History: Asthma Additional Past Medical History / Comment(s): Current sinus infection, MISCARRIAGE, TMJ, pyelonephrits April 2017 History of Any Multi-Drug Resistant Organisms: None Reported Past Surgical History: Adenoidectomy, Ear Surgery, Tonsillectomy Additional Past Surgical History / Comment(s): ovarian cyst removed, D&C x2 Past Psychological History: No Psychological Hx Reported Smoking Status: Never smoker Past Alcohol Use History: None Reported Past Drug Use History: None Reported - Past Family History Mother Family Medical History: Skin Disorder Additional Family Medical History / Comment(s): Scleroderma, Morphea General Exam - General Exam Comments Initial Comments: General: The patient is awake and alert, in no distress, and does not appear acutely ill. Eye: Pupils are equal, round and reactive to light, extra-ocular movements are intact. No nystagmus. There is normal conjunctiva bilaterally. No signs of icterus. Ears, nose, mouth and throat: There are moist mucous membranes and no oral lesions. Increased redness erythema to the posterior pharynx. White exudate to the right side of tongue. Neck: The neck is supple. Cardiovascular: There is a regular rate and rhythm. No murmur, rub or gallop is appreciated. Respiratory: Lungs are clear to auscultation, respirations are non-labored, breath sounds are equal. No wheezes, stridor, rales, or rhonchi. Musculoskeletal: Normal ROM, no tenderness. Strength 5/5. Sensation intact. Pulses equal bilaterally 2+. Neurological: A&O x 3. CN II-XII intact, There are no obvious motor or sensory deficits. Coordination appears grossly intact. Speech is normal. Skin: Skin is warm and dry and no rashes or lesions are noted. Psychiatric: Cooperative, appropriate mood & affect, normal judgment. Limitations: no limitations Course Vital Signs 09/18/17 09/18/17 19:59 20:11 Temperature 99.4 F Pulse Rate 106 H 103 H Respiratory 18 Rate Blood Pressure 128/88 O2 Sat by Pulse 100 Oximetry Medical Decision Making - Medical Decision Making Patient's strep test negative. Will be covered with antibiotics of amoxicillin for infection advised follow-up over the next 2 days return here to the emergency room symptoms increase worsen. - Lab Data Lab Results 09/18/17 Range/Units 19:10 Group A Strep Rapid Negative (Negative) Disposition Clinical Impression: Acute pharyngitis Disposition: HOME SELF-CARE Condition: Good Instructions: Pharyngitis (ED) Additional Instructions: Please use medication as discussed. Please follow-up with family doctor in the next 2 days of symptoms have not improved. Please return to emergency room if the symptoms increase or worsen or for any other concerns. Prescriptions: Amoxicillin 500 mg PO Q8H 10 Days day Referrals: Enrique Mendez DO [Primary Care Provider] - 1-2 days Time of Disposition: 20:41
== END 2017-09-18 20:46 | disposition home or self-care (01) ==
LOC: EC 19:54
DX: O99.511 Diseases of the respiratory system complicating pregnancy, first trimester (principal); J02.9 Acute pharyngitis, unspecified; J45.909 Unspecified asthma, uncomplicated; Z91.040 Latex allergy status; Z90.89 Acquired absence of other organs; Z3A.11 11 weeks gestation of pregnancy; Z88.1 Allergy status to other antibiotic agents; Z88.8 Allergy status to other drugs, medicaments and biological substances; Z91.018 Allergy to other foods
CPT/HCPCS: 87081; 87430; 99283

== ENCOUNTER 2017-11-04 19:18 | Emergency (ER) | payer OTHER ==
[2017-11-04 19:36] VITALS: BP 125/82; PULSE 82; RESP 20; TEMP 98.3
[2017-11-04 20:24] LABS: Basophils # (A) 0.1 k/uL (0-0.2); Basophils % (A) 1 %; Eosinophils # (A) 0.4 k/uL (0-0.7); Eosinophils % (A) 4 %; HCT 39.7 % (34.0-46.0); HGB 13.3 gm/dL (11.4-16.0); Lymphocytes # (A) 2.8 k/uL (1.0-4.8); Lymphocytes % (A) 24 %; MCHC 33.5 g/dL (31.0-37.0); MCV 80.8 fL (80.0-100.0); Monocytes # (A) 0.5 k/uL (0-1.0); Monocytes % (A) 5 %; Neutrophils # (A) 7.5 k/uL (1.3-7.7); Neutrophils % (A) 65 %; Platelet Count 272 k/uL (150-450); RBC 4.91 m/uL (3.80-5.40); RDW 14.5 % (11.5-15.5); WBC 11.5 k/uL (4.0-11.0)
[2017-11-04 20:28] LABS: Amorphous Sediment,Urine Rare /hpf; Appearance,Urine Cloudy (Clear); Bacteria,Urine Rare /hpf; Bilirubin,Urine Negative (Negative); Blood,Urine Negative (Negative); Color,Urine Yellow; Glucose,Urine (UA) Negative (Negative); Ketones,Urine Negative (Negative); Leukocyte Esterase,Urine Large (Negative); Mucus,Urine Few /hpf; Nitrite,Urine Negative (Negative); PH, Urine 6.5 (5.0-8.0); Protein,Urine Trace (Negative); Specific Gravity,Urine 1.023 (1.001-1.035); Squamous Epithelial Cell,Urine 1 /hpf (0-4); Urobilinogen,Urine <2.0 mg/dL (<2.0); WBC,Urine 9 /hpf (0-5)
[2017-11-04 20:35] LABS: ALT 12 U/L (9-52); AST 17 U/L (14-36); Albumin 4.2 g/dL (3.5-5.0); Alkaline Phosphatase 78 U/L (38-126); Anion Gap 14 mmol/L; Blood Urea Nitrogen 12 mg/dL (7-17); Calcium 9.9 mg/dL (8.4-10.2); Carbon Dioxide 25 mmol/L (22-30); Chloride 103 mmol/L (98-107); Glucose 55 mg/dL (74-99); Potassium 3.7 mmol/L (3.5-5.1); Sodium 142 mmol/L (137-145); Total Bilirubin 0.2 mg/dL (0.2-1.3)
--- NOTE | 2017-11-04 21:16 | ED ---
Abdominal Pain HPI - General Chief Complaint: Abdominal Pain Stated Complaint: Yeast Infection Time Seen by Provider: 11/04/17 19:42 Source: patient, RN notes reviewed Mode of arrival: ambulatory Limitations: no limitations - History of Present Illness Initial Comments: This is a 22-year-old female who presents to the emergency department with chief complaint of a yeast infection. Patient states that she is currently 18 weeks . She states for the past 4 days she has been having vaginal irritation and a thick white discharge. She states that she has had many yeast infections in the past so knows that this is a yeast infection. She states that she was prescribed nystatin cream that she's been using 2 times a day for the past 4 days. Patient denies any vaginal bleeding. She does state that she was having some back pain with radiation around to her abdomen. Patient states that she has been seen here at the emergency department and has had a verified intrauterine on ultrasound. Denies fever, chills, chest pain, shortness of breath, nausea or vomiting, constipation or diarrhea, dysuria or hematuria, numbness or tingling, headache or vision changes. - Related Data Home Medications Medication Instructions Recorded Confirmed Pnv No.95/Ferrous Fum/Folic AC 1 tab PO DAILY 11/04/17 11/04/17 [ Multivitamin Tablet] Previous Rx's Medication Instructions Recorded Clotrimazole [Clotrimazole AF] 1 applic TOPICAL HS 7 Days 11/04/17 Allergies Allergy/AdvReac Type Severity Reaction Status Date / Time bee pollen Allergy Severe Anaphylaxis Verified 11/04/17 19:39 walnut Allergy Severe Anaphylaxis Verified 11/04/17 19:39 latex Allergy Rash/Hives Verified 11/04/17 19:39 cephalexin [From Keflex] AdvReac Nausea & Verified 11/04/17 19:39 Vomiting & Diarrhea medroxyprogesterone acetate AdvReac Nausea & Verified 11/04/17 19:39 [From Depo-Provera] Vomiting Review of Systems ROS Statement: Those systems with pertinent positive or pertinent negative responses have been documented in the HPI. ROS Other: All systems not noted in ROS Statement are negative. Past Medical History Past Medical History: Asthma Additional Past Medical History / Comment(s): Current sinus infection, MISCARRIAGE, TMJ, pyelonephrits April 2017 History of Any Multi-Drug Resistant Organisms: None Reported Past Surgical History: Adenoidectomy, Ear Surgery, Tonsillectomy Additional Past Surgical History / Comment(s): ovarian cyst removed, D&C x2 Past Psychological History: No Psychological Hx Reported Smoking Status: Never smoker Past Alcohol Use History: None Reported Past Drug Use History: None Reported - Past Family History Mother Family Medical History: Skin Disorder Additional Family Medical History / Comment(s): Scleroderma, Morphea General Exam - General Exam Comments Initial Comments: General: Awake and alert, well-developed; in no apparent distress. HEENT: Head atraumatic, normocephalic. Pupils are equal, round and reactive to light. Extraocular movements intact. Oropharynx moist without erythema or exudate. Neck: Supple. Normal ROM. Cardiovascular: Regular rate and rhythm. No murmurs, rubs or gallops. Chest symmetrical. Respiratory: Lungs clear to auscultation bilaterally. No wheezes, rales or rhonchi. Normal respiratory effort with no use of accessory muscles. Abdomen: Soft, non-tender, non-distended. No rigidity, rebound or guarding. No bilateral CVA tenderness. Musculoskeletal: Normal ROM, no tenderness bilateral upper and lower extremities. Ambulating normally. Skin: [place], warm and dry without rashes or lesions. Neurological: Alert and oriented x3. CN II-XII grossly intact. Speech is fluent and answers are appropriate. No focal neuro deficits. Psychiatric: Normal mood and affect. No overt signs of depression or anxiety noted. Limitations: no limitations External exam: Present: erythema. Absent: lesions, lacerations, ecchymosis Speculum exam: Present: erythema, vaginal discharge (thick curd-like white discharge ), cervical discharge Course Vital Signs 11/04/17 19:33 Temperature 98.3 F Pulse Rate 82 Respiratory 20 Rate Blood Pressure 125/82 O2 Sat by Pulse 99 Oximetry Medical Decision Making - Medical Decision Making This is a 22-year-old female, currently 18 weeks , who presents to the emergency department with chief complaint of yeast infection. Patient has been having a thick white discharge, itching and irritation for 4 days. On speculum exam, there is copious amount of thick, white discharge. Labia is erythematous. CBC, CMP and a UA were unremarkable. Patient denied any vaginal bleeding. She did complain of some abdominal pain, however abdomen is soft and non-tender. heart tones were obtained and are normal. There is a confirmed viable intrauterine on ultrasound on 09/14/2017. Patient's vital signs are stable and she is in no acute distress. She will be written a prescription for clotrimazole intravaginal cream to be used for the next 7 days. She'll be discharged home at this time. She is in agreement and voices understanding. All questions were answered. Recommended following up with her NATIONAL SALES CONSULTANT, Dr. Jarvis. - Lab Data Result diagrams: 11/04/17 19:55 11/04/17 19:55 Lab Results 11/04/17 11/04/17 11/04/17 Range/Units 19:50 19:55 19:55 WBC 11.5 H (4.0-11.0) k/uL RBC 4.91 (3.80-5.40) m/uL Hgb 13.3 (11.4-16.0) gm/dL Hct 39.7 (34.0-46.0) % MCV 80.8 (80.0-100.0) fL MCH 27.0 (25.0-35.0) pg MCHC 33.5 (31.0-37.0) g/dL RDW 14.5 (11.5-15.5) % Plt Count 272 (150-450) k/uL Neutrophils % 65 % Lymphocytes % 24 % Monocytes % 5 % Eosinophils % 4 % Basophils % 1 % Neutrophils # 7.5 (1.3-7.7) k/uL Lymphocytes # 2.8 (1.0-4.8) k/uL Monocytes # 0.5 (0-1.0) k/uL Eosinophils # 0.4 (0-0.7) k/uL Basophils # 0.1 (0-0.2) k/uL Sodium 142 (137-145) mmol/L Potassium 3.7 (3.5-5.1) mmol/L Chloride 103 (98-107) mmol/L Carbon Dioxide 25 (22-30) mmol/L Anion Gap 14 mmol/L BUN 12 (7-17) mg/dL Creatinine 0.50 L (0.52-1.04) mg/dL Est GFR (CKD-EPI)AfAm >90 (>60 ml/min/1.73 sqM) Est GFR (CKD-EPI)NonAf >90 (>60 ml/min/1.73 sqM) Glucose 55 L (74-99) mg/dL Calcium 9.9 (8.4-10.2) mg/dL Total Bilirubin 0.2 (0.2-1.3) mg/dL AST 17 (14-36) U/L ALT 12 (9-52) U/L Alkaline Phosphatase 78 (38-126) U/L Total Protein 7.0 (6.3-8.2) g/dL Albumin 4.2 (3.5-5.0) g/dL Urine Color Yellow Urine Appearance Cloudy H (Clear) Urine pH 6.5 (5.0-8.0) Ur Specific [place] 1.023 (1.001-1.035) Urine Protein Trace H (Negative) Urine Glucose (UA) Negative (Negative) Urine Ketones Negative (Negative) Urine Blood Negative (Negative) Urine Nitrite Negative (Negative) Urine Bilirubin Negative (Negative) Urine Urobilinogen <2.0 (<2.0) mg/dL Ur Leukocyte Esterase Large H (Negative) Urine WBC 9 H (0-5) /hpf Ur Squamous Epith Cells 1 (0-4) /hpf Amorphous Sediment Rare H (None) /hpf Urine Bacteria Rare H (None) /hpf Urine Mucus Few H (None) /hpf Disposition Clinical Impression: Vaginal candidiasis Disposition: HOME SELF-CARE Condition: Good Instructions: Vulvovaginal Candidiasis (ED) Additional Instructions: Please follow-up with Dr. Jarvis within 1-2 days. Please apply cream intravaginally each night for the next 7 days. May discontinue the use of nystatin.Please take medications as prescribed. Please follow up with primary care provider within 1-2 days. Return to emergency department if symptoms should worsen or any concerns arise. Prescriptions: Clotrimazole [Clotrimazole AF] 1 applic TOPICAL HS 7 Days Referrals: Enrique Mendez DO [Primary Care Provider] - 1-2 days Time of Disposition: 21:35
[2017-11-04 21:20] LABS: HCG,Quantitative Serum 84380.9 mIU/mL
== END 2017-11-04 22:02 | disposition home or self-care (01) ==
LOC: EC 19:18
DX: O98.812 Other maternal infectious and parasitic diseases complicating pregnancy, second trimester (principal); B37.9 Candidiasis, unspecified; O99.89 Other specified diseases and conditions complicating pregnancy, childbirth and the puerperium; R10.9 Unspecified abdominal pain; M54.9 Dorsalgia, unspecified; Z88.1 Allergy status to other antibiotic agents; Z88.8 Allergy status to other drugs, medicaments and biological substances; Z91.018 Allergy to other foods; Z91.030 Bee allergy status; Z91.040 Latex allergy status; Z98.890 Other specified postprocedural states; Z3A.18 18 weeks gestation of pregnancy
CPT/HCPCS: 36415; 80053; 81001; 84702; 85025; 86900; 86901; 87086; 99284

== ENCOUNTER 2017-12-10 13:32 | Emergency (ER) | payer OTHER ==
[2017-12-10] MEDS ORDERED: SODIUM CHLORIDE 0.9% 1,000 ML IV STA ×2 (13:43→15:12)
[2017-12-10] MEDS ORDERED: SODIUM CHLORIDE 0.9% 500 ML IV STA (13:43)
[2017-12-10 13:49] LABS: Glucose,Whole Blood 103 mg/dL (75-99)
--- NOTE | 2017-12-10 14:09 | ED ---
General Adult HPI - General Chief complaint: Syncope Stated complaint: Syncope Time Seen by Provider: 12/10/17 13:35 Source: patient, RN notes reviewed, old records reviewed Mode of arrival: ambulatory Limitations: no limitations - History of Present Illness Initial comments: This is a 22-year-old female to the ER for evaluation regards to syncopal event. Patient is around 6 months . has been without event or complication. Patient states she was syncopal episode earlier today while at the grocery store. She did fall and collapse hitting her right elbow, no hitting of her head, no loss of consciousness from the fall. Patient denies any other injury or pain. No headache. Patient has no chest pain no shortness of breath no abdominal pain. No recent episodes of nausea vomiting or diarrhea , eating and drinking appropriate. Denies any recent fevers. - Related Data Home Medications Medication Instructions Recorded Confirmed Pnv No.95/Ferrous Fum/Folic AC 1 tab PO DAILY 11/04/17 11/04/17 [ Multivitamin Tablet] Previous Rx's Medication Instructions Recorded Clotrimazole [Clotrimazole AF] 1 applic TOPICAL HS 7 Days 11/04/17 Allergies Allergy/AdvReac Type Severity Reaction Status Date / Time bee pollen Allergy Severe Anaphylaxis Verified 12/10/17 13:38 walnut Allergy Severe Anaphylaxis Verified 12/10/17 13:38 latex Allergy Rash/Hives Verified 12/10/17 13:38 cephalexin [From Keflex] AdvReac Nausea & Verified 12/10/17 13:38 Vomiting & Diarrhea medroxyprogesterone acetate AdvReac Nausea & Verified 12/10/17 13:38 [From Depo-Provera] Vomiting Review of Systems ROS Statement: Those systems with pertinent positive or pertinent negative responses have been documented in the HPI. ROS Other: All systems not noted in ROS Statement are negative. Past Medical History Past Medical History: Asthma Additional Past Medical History / Comment(s): Current sinus infection, MISCARRIAGE, TMJ, pyelonephrits April 2017 History of Any Multi-Drug Resistant Organisms: None Reported Past Surgical History: Adenoidectomy, Ear Surgery, Tonsillectomy Additional Past Surgical History / Comment(s): ovarian cyst removed, D&C x2 Past Psychological History: No Psychological Hx Reported Smoking Status: Never smoker Past Alcohol Use History: None Reported Past Drug Use History: None Reported - Past Family History Mother Family Medical History: Skin Disorder Additional Family Medical History / Comment(s): Scleroderma, Morphea General Exam Limitations: no limitations General appearance: alert, in no apparent distress Head exam: Present: atraumatic, normocephalic, normal inspection Eye exam: Present: normal appearance, PERRL, EOMI. Absent: scleral icterus, conjunctival injection, periorbital swelling ENT exam: Present: normal exam, mucous membranes moist Neck exam: Present: normal inspection. Absent: tenderness, meningismus, lymphadenopathy Respiratory exam: Present: normal lung sounds bilaterally. Absent: respiratory distress, wheezes, rales, rhonchi, stridor Cardiovascular Exam: Present: regular rate, normal rhythm, normal heart sounds. Absent: systolic murmur, diastolic murmur, rubs, gallop, clicks GI/Abdominal exam: Present: soft, normal bowel sounds. Absent: distended, tenderness, guarding, rebound, rigid Extremities exam: Present: normal inspection, full ROM, normal capillary refill. Absent: tenderness, pedal edema, joint swelling, calf tenderness Back exam: Present: normal inspection Neurological exam: Present: alert, oriented X3, CN II-XII intact Psychiatric exam: Present: normal affect, normal mood Skin exam: Present: warm, dry, intact, normal color. Absent: rash Course Vital Signs 12/10/17 12/10/17 13:34 15:10 Temperature 98.3 F Pulse Rate 71 68 Respiratory 16 18 Rate Blood Pressure 121/58 114/56 O2 Sat by Pulse 98 100 Oximetry EKG Findings - EKG Comments: EKG Findings:: EKG shows normal sinus rhythm rate of 66, [place] 128, QRS 100, QTc 436 Medical Decision Making - Medical Decision Making 22 female the ER for evaluation of syncopal event during . Patient is single verified on right shoulder bright red wrist right elbow. Complaining right elbow pain. Patient did not hit her head has no headache no chest pain or shortness breath or abdominal pain. Labwork is normal mild dehydration. Patient given hydration here in the ER is asymptomatic pain is controlled and can be discharged home - Lab Data Result diagrams: 12/10/17 14:08 12/10/17 14:08 Lab Results 12/10/17 12/10/17 12/10/17 Range/Units 13:43 14:08 14:08 WBC 11.2 H (4.0-11.0) k/uL RBC 4.33 (3.80-5.40) m/uL Hgb 11.3 L (11.4-16.0) gm/dL Hct 33.9 L (34.0-46.0) % MCV 78.2 L (80.0-100.0) fL MCH 26.1 (25.0-35.0) pg MCHC 33.3 (31.0-37.0) g/dL RDW 14.2 (11.5-15.5) % Plt Count 259 (150-450) k/uL Neutrophils % 71 % Lymphocytes % 18 % Monocytes % 6 % Eosinophils % 3 % Basophils % 0 % Neutrophils # 7.9 H (1.3-7.7) k/uL Lymphocytes # 2.0 (1.0-4.8) k/uL Monocytes # 0.7 (0-1.0) k/uL Eosinophils # 0.3 (0-0.7) k/uL Basophils # 0.0 (0-0.2) k/uL Sodium (137-145) mmol/L Potassium (3.5-5.1) mmol/L Chloride (98-107) mmol/L Carbon Dioxide (22-30) mmol/L Anion Gap mmol/L BUN (7-17) mg/dL Creatinine (0.52-1.04) mg/dL Est GFR (CKD-EPI)AfAm (>60 ml/min/1.73 sqM) Est GFR (CKD-EPI)NonAf (>60 ml/min/1.73 sqM) Glucose (74-99) mg/dL POC Glucose (mg/dL) 103 H (75-99) mg/dL POC Glu Shear Operator Helper ID Dgsylvie, Ali Calcium (8.4-10.2) mg/dL Phosphorus (2.5-4.5) mg/dL Magnesium (1.6-2.3) mg/dL Total Bilirubin (0.2-1.3) mg/dL AST (14-36) U/L ALT (9-52) U/L Alkaline Phosphatase (38-126) U/L Total Creatine Kinase 34 (30-135) U/L CK-MB (CK-2) 0.5 (0.0-2.4) ng/mL CK-MB (CK-2) Rel Index 1.5 Troponin I <0.012 (0.000-0.034) ng/mL Total Protein (6.3-8.2) g/dL Albumin (3.5-5.0) g/dL /01/22 Range/Units 14:08 WBC (4.0-11.0) k/uL RBC (3.80-5.40) m/uL Hgb (11.4-16.0) gm/dL Hct (34.0-46.0) % MCV (80.0-100.0) fL MCH (25.0-35.0) pg MCHC (31.0-37.0) g/dL RDW (11.5-15.5) % Plt Count (150-450) k/uL Neutrophils % % Lymphocytes % % Monocytes % % Eosinophils % % Basophils % % Neutrophils # (1.3-7.7) k/uL Lymphocytes # (1.0-4.8) k/uL Monocytes # (0-1.0) k/uL Eosinophils # (0-0.7) k/uL Basophils # (0-0.2) k/uL Sodium 140 (137-145) mmol/L Potassium 3.7 (3.5-5.1) mmol/L Chloride 105 (98-107) mmol/L Carbon Dioxide 24 (22-30) mmol/L Anion Gap 11 mmol/L BUN 9 (7-17) mg/dL Creatinine 0.42 L (0.52-1.04) mg/dL Est GFR (CKD-EPI)AfAm >90 (>60 ml/min/1.73 sqM) Est GFR (CKD-EPI)NonAf >90 (>60 ml/min/1.73 sqM) Glucose 80 (74-99) mg/dL POC Glucose (mg/dL) (75-99) mg/dL POC Glu Shear Operator Helper ID Calcium 8.9 (8.4-10.2) mg/dL Phosphorus 4.3 (2.5-4.5) mg/dL Magnesium 1.7 (1.6-2.3) mg/dL Total Bilirubin 0.2 (0.2-1.3) mg/dL AST 15 (14-36) U/L ALT 16 (9-52) U/L Alkaline Phosphatase 64 (38-126) U/L Total Creatine Kinase (30-135) U/L CK-MB (CK-2) (0.0-2.4) ng/mL CK-MB (CK-2) Rel Index Troponin I (0.000-0.034) ng/mL Total Protein 5.5 L (6.3-8.2) g/dL Albumin 3.1 L (3.5-5.0) g/dL - Radiology Data Radiology results: report reviewed (X-ray right elbow is negative), image reviewed Disposition Clinical Impression: Vasovagal syncope Disposition: HOME SELF-CARE Condition: Good Instructions: Syncope (ED) Is patient prescribed a controlled substance at d/c from ED?: No Referrals: Enrique Mendez DO [Primary Care Provider] - 1-2 days
[2017-12-10 14:25] LABS: Basophils % (A) 0 %; Eosinophils # (A) 0.3 k/uL (0-0.7); Eosinophils % (A) 3 %; HCT 33.9 % (34.0-46.0); HGB 11.3 gm/dL (11.4-16.0); Lymphocytes % (A) 18 %; MCH 26.1 pg (25.0-35.0); MCHC 33.3 g/dL (31.0-37.0); MCV 78.2 fL (80.0-100.0); Mean Platelet Volume 6.8; Monocytes # (A) 0.7 k/uL (0-1.0); Monocytes % (A) 6 %; Neutrophils # (A) 7.9 k/uL (1.3-7.7); Neutrophils % (A) 71 %; Platelet Count 259 k/uL (150-450); RBC 4.33 m/uL (3.80-5.40); RDW 14.2 % (11.5-15.5); WBC 11.2 k/uL (4.0-11.0)
[2017-12-10 14:32] LABS: ALT 16 U/L (9-52); AST 15 U/L (14-36); Albumin 3.1 g/dL (3.5-5.0); Alkaline Phosphatase 64 U/L (38-126); Anion Gap 11 mmol/L; Blood Urea Nitrogen 9 mg/dL (7-17); Calcium 8.9 mg/dL (8.4-10.2); Carbon Dioxide 24 mmol/L (22-30); Chloride 105 mmol/L (98-107); Glucose 80 mg/dL (74-99); Magnesium 1.7 mg/dL (1.6-2.3); Phosphorus 4.3 mg/dL (2.5-4.5); Potassium 3.7 mmol/L (3.5-5.1); Sodium 140 mmol/L (137-145); Total Bilirubin 0.2 mg/dL (0.2-1.3); Total Protein 5.5 g/dL (6.3-8.2)
[2017-12-10 14:43] LABS: Creatine Kinase 34 U/L (30-135)
--- NOTE | 2017-12-10 14:47 | XR ---
EXAMINATION TYPE: XR elbow complete RT DATE OF EXAM: 12/10/2017 COMPARISON: NONE HISTORY: Pain TECHNIQUE: Three-view right elbow FINDINGS: Radius aligns normally with the humerus. Anterior fat pad is normal. No elevation of the po sterior fat pad is evident. Soft tissues are normal. Follow-up exam can be performed 7-10 days from acute trauma for continued pain. IMPRESSION: 1. Normal three-view right elbow
[2017-12-10 14:56] LABS: Creatine Kinase MB 0.5 ng/mL (0.0-2.4); Troponin I <0.012 ng/mL (0.000-0.034)
[2017-12-10] MEDS ORDERED: ACETAMINOPHEN IV (For NPO) 1,000 MG in EMPTY BAG 1 BAG IVPB STA (15:04)
[2017-12-10 15:13] VITALS: RESP 18
[2017-12-10 16:07] LABS: Appearance,Urine Clear (Clear); Bilirubin,Urine Negative (Negative); Blood,Urine Negative (Negative); Color,Urine Light Yellow; Glucose,Urine (UA) Negative (Negative); Ketones,Urine Negative (Negative); Leukocyte Esterase,Urine Large (Negative); Mucus,Urine Rare /hpf; Nitrite,Urine Negative (Negative); Protein,Urine Negative (Negative); RBC,Urine 6 /hpf (0-5); Specific Gravity,Urine 1.008 (1.001-1.035); Squamous Epithelial Cell,Urine 4 /hpf (0-4); Urobilinogen,Urine <2.0 mg/dL (<2.0); WBC,Urine 7 /hpf (0-5)
[2017-12-10 16:36] VITALS: BP 103/58; PULSE 64; TEMP 97.3
== END 2017-12-10 16:37 | disposition home or self-care (01) ==
LOC: EC 13:32
DX: O99.89 Other specified diseases and conditions complicating pregnancy, childbirth and the puerperium (principal); R55 Syncope and collapse; M25.521 Pain in right elbow; O99.282 Endocrine, nutritional and metabolic diseases complicating pregnancy, second trimester; E86.0 Dehydration; Z91.030 Bee allergy status; Z91.018 Allergy to other foods; Z91.040 Latex allergy status; Z88.1 Allergy status to other antibiotic agents; Z88.8 Allergy status to other drugs, medicaments and biological substances; Z3A.00 Weeks of gestation of pregnancy not specified; W19.XXXA Unspecified fall, initial encounter; Y92.512 Supermarket, store or market as the place of occurrence of the external cause
CPT/HCPCS: 99285; 96374; 96361; 36415; 93005; 80053; 82550; 82553; 83735; 84100; 84484; 85025; 81001; 87086; 73080; J0131

== ENCOUNTER 2018-10-17 11:56 | Emergency (ER) | payer OTHER ==
[2018-10-17] MEDS ORDERED: IPRATROPIUM-ALBUTEROL 3 ML NEB INHALATION STA (12:31)
[2018-10-17] MEDS ORDERED: SODIUM CHLORIDE 0.9% 1,000 ML IV STA (12:31)
--- NOTE | 2018-10-17 12:34 | ED ---
General Adult HPI - General Chief complaint: Upper Respiratory Infection Stated complaint: cough, SOB Time Seen by Provider: 10/17/18 12:18 Source: patient, RN notes reviewed, old records reviewed Mode of arrival: ambulatory Limitations: no limitations - History of Present Illness Initial comments: 23-year-old female patient past medical history of asthma presents to ED with approximately 2 weeks of shortness of breath. She reports that this does feel s imilar to her asthma in the past. Patient has not been previously seen for this problem. Patient has used her albuterol inhaler at home as well as her updraft with mild improvement. Patient denies any fevers chills, nausea vomiting diarrhea, abdominal pain. Patient denies that she is not currently . Patient however does state that she is currently breast-feeding. Patient denies other complaints. Systemic: Pt denies fatigue, myalgia, fever/chills, rash. Pt denies weakness, night sweats, weight loss. Neuro: Pt denies headache, visual disturbances, syncope or pre-syncope. HEENT: Pt denies ocular discharge or irritation, otalgia, rhinorrhea, pharyngitis or notable lymphadenopathy. Cardiopulmonary: Pt denies chest pain, heart palpitations, dyspnea on exertion. Abdominal/GI: Pt denies abdominal pain, n/v/d. : Pt denies dysuria, burning w/ urination, frequency/urgency. Denies new onset urinary or bowel incontinence. MSK: Pt denies myalgia, loss of strength or function in extremities. Neuro: Pt denies new onset weakness, paresthesias. - Related Data Home Medications Medication Instructions Recorded Confirmed Albuterol Inhaler [Ventolin Hfa 1 - 2 puff INHALATION RT-Q6H PRN 10/17/18 10/17/18 Inhaler] Albuterol Nebulized [Ventolin 2.5 mg INHALATION RT-Q4H PRN 10/17/18 10/17/18 Nebulized] Previous Rx's Medication Instructions Recorded Albuterol Inhaler [Ventolin Hfa 1 - 2 puff INHALATION Q4-6H PRN #1 10/17/18 Inhaler] inhaler Albuterol Nebulized [Ventolin 2.5 mg INHALATION Q4H PRN 10 Days 10/17/18 Nebulized] nebu Ibuprofen [Motrin] 600 mg PO Q6HR PRN #40 day 10/17/18 predniSONE 20 mg PO DIRECTED 5 Days #5 tab 10/17/18 Allergies Allergy/AdvReac Type Severity Reaction Status Date / Time bee pollen Allergy Severe Anaphylaxis Verified 10/17/18 13:14 walnut Allergy Severe Anaphylaxis Verified 10/17/18 13:14 latex Allergy Rash/Hives Verified 10/17/18 13:14 cephalexin [From Keflex] AdvReac Nausea & Verified 10/17/18 13:14 Vomiting & Diarrhea medroxyprogesterone acetate AdvReac Nausea & Verified 10/17/18 13:14 [From Depo-Provera] Vomiting Review of Systems ROS Statement: Those systems with pertinent positive or pertinent negative responses have been documented in the HPI. ROS Other: All systems not noted in ROS Statement are negative. Past Medical History Past Medical History: Asthma Additional Past Medical History / Comment(s): Current sinus infection, MISCARRIAGE, TMJ, pyelonephrits April 2017 History of Any Multi-Drug Resistant Organisms: None Reported Past Surgical History: Adenoidectomy, Ear Surgery, Tonsillectomy Additional Past Surgical History / Comment(s): ovarian cyst removed, D&C x2 Past Psychological History: No Psychological Hx Reported Smoking Status: Never smoker Past Alcohol Use History: None Reported Past Drug Use History: None Reported - Past Family History Mother Family Medical History: Skin Disorder Additional Family Medical History / Comment(s): Scleroderma, Morphea General Exam - General Exam Comments Initial Comments: Constitutional: NAD, AOX3, Pt has pleasant affect. HEENT: NC/AT, trachea midline, neck supple, no lymphadenopathy. Posterior pharynx non erythematous, without exudates. External ears appear normal, without discharge. Mucous membranes moist. Eyes PERRLA, EOM intact. There is no scleral icterus. No pallor noted. Cardiopulmonary: RRR, no murmurs, rubs or gallops, no JVD noted. Lungs CTAB in anterior and posterior pineda. No peripheral edema. Abdominal exam: Abdomen soft and non-distended. Abdomen non-tender to palpation in all 4 quadrants. Bowel sounds active in LLQ. No hepatosplenomegaly. No ecchymosis Neuro: CN II-XII grossly intact. No nuchal rigidity. MSK: No posterior calf tenderness bilaterally, homans sign negative bilaterally. Posterior tibialis and radial pulse +2 bilaterally. Sensation intact in upper and lower extremities. Full active ROM in upper and lower extremities, 5/5 stregnth. Limitations: no limitations Course Vital Signs 10/17/18 10/17/18 10/17/18 12:13 13:01 13:09 Temperature 98.6 F Pulse Rate 96 84 80 Respiratory 16 Rate Blood Pressure 122/84 O2 Sat by Pulse 99 Oximetry 10/17/18 14:32 Temperature 97.4 F L Pulse Rate 96 Respiratory 18 Rate Blood Pressure 116/78 O2 Sat by Pulse 98 Oximetry Medical Decision Making - Medical Decision Making 23-year-old female patient past medical history of asthma presents to ED with approximately 2 weeks of shortness of breath. She reports that this does feel similar to her asthma in the past. Patient has not been previously seen for this problem. Patient has used her albuterol inhaler at home as well as her updraft with mild improvement. Patient denies any fevers chills, nausea vomiting diarrhea, abdominal pain. Patient denies that she is not currently . Patient however does state that she is currently breast-feeding. Patient denies other complaints. Vital signs stable, afebrile. Physical exam did not display acute pathology. Patient inspiratory and expiratory effort improved after breathing treatment. Patient states that she feels as if she is breathing better. Laboratory investigations revealed non-impressive CBC, CMP. D-dimer negative UA contaminated, patient not experiencing any dysuria, will culture. EKG not concerning for acute ischemia. CXR did not display acute process. Patient experiencing mild asthma exacerbation, likely pleurisy. Patient to be treated with low-dose steroids for 5 days. Patient to use ibuprofen for pleurisy. Pt asthma medications refilled. Patient to follow up with primary care provider and nail tech 1-2 days. Patient to return to ER if condition worsens in any way. Case discussed with Dr. Garcia. - Lab Data Result diagrams: 10/17/18 12:50 10/17/18 12:50 Lab Results 10/17/18 10/17/18 10/17/18 Range/Units 12:50 12:50 12:50 WBC 7.3 (3.8-10.6) k/uL RBC 5.57 H (3.80-5.40) m/uL Hgb 13.3 (11.4-16.0) gm/dL Hct 43.8 (34.0-46.0) % MCV 78.7 L (80.0-100.0) fL MCH 23.9 L (25.0-35.0) pg MCHC 30.4 L (31.0-37.0) g/dL RDW 14.2 (11.5-15.5) % Plt Count 230 (150-450) k/uL Neutrophils % 60 % Lymphocytes % 21 % Monocytes % 9 % Eosinophils % 7 % Basophils % 1 % Neutrophils # 4.4 (1.3-7.7) k/uL Lymphocytes # 1.6 (1.0-4.8) k/uL Monocytes # 0.7 (0-1.0) k/uL Eosinophils # 0.5 (0-0.7) k/uL Basophils # 0.0 (0-0.2) k/uL D-Dimer 0.23 (<0.60) mg/L FEU Sodium 140 (137-145) mmol/L Potassium 4.2 (3.5-5.1) mmol/L Chloride 104 (98-107) mmol/L Carbon Dioxide 28 (22-30) mmol/L Anion Gap 8 mmol/L BUN 19 H (7-17) mg/dL Creatinine 0.62 (0.52-1.04) mg/dL Est GFR (CKD-EPI)AfAm >90 (>60 ml/min/1.73 sqM) Est GFR (CKD-EPI)NonAf >90 (>60 ml/min/1.73 sqM) Glucose 74 (74-99) mg/dL Calcium 9.7 (8.4-10.2) mg/dL Total Bilirubin 0.5 (0.2-1.3) mg/dL AST 22 (14-36) U/L ALT 29 (9-52) U/L Alkaline Phosphatase 102 (38-126) U/L Total Protein 7.2 (6.3-8.2) g/dL Albumin 4.6 (3.5-5.0) g/dL Urine Color Urine Appearance (Clear) Urine pH (5.0-8.0) Ur Specific [place] (1.001-1.035) Urine Protein (Negative) Urine Glucose (UA) (Negative) Urine Ketones (Negative) Urine Blood (Negative) Urine Nitrite (Negative) Urine Bilirubin (Negative) Urine Urobilinogen (<2.0) mg/dL Ur Leukocyte Esterase (Negative) Urine RBC (0-5) /hpf Urine WBC (0-5) /hpf Ur Squamous Epith Cells (0-4) /hpf Urine Bacteria (None) /hpf Urine Mucus (None) /hpf Urine HCG, Qual (Not Detectd) 10/17/18 10/17/18 Range/Units 13:55 13:55 WBC (3.8-10.6) k/uL RBC (3.80-5.40) m/uL Hgb (11.4-16.0) gm/dL Hct (34.0-46.0) % MCV (80.0-100.0) fL MCH (25.0-35.0) pg MCHC (31.0-37.0) g/dL RDW (11.5-15.5) % Plt Count (150-450) k/uL Neutrophils % % Lymphocytes % % Monocytes % % Eosinophils % % Basophils % % Neutrophils # (1.3-7.7) k/uL Lymphocytes # (1.0-4.8) k/uL Monocytes # (0-1.0) k/uL Eosinophils # (0-0.7) k/uL Basophils # (0-0.2) k/uL D-Dimer (<0.60) mg/L FEU Sodium (137-145) mmol/L Potassium (3.5-5.1) mmol/L Chloride (98-107) mmol/L Carbon Dioxide (22-30) mmol/L Anion Gap mmol/L BUN (7-17) mg/dL Creatinine (0.52-1.04) mg/dL Est GFR (CKD-EPI)AfAm (>60 ml/min/1.73 sqM) Est GFR (CKD-EPI)NonAf (>60 ml/min/1.73 sqM) Glucose (74-99) mg/dL Calcium (8.4-10.2) mg/dL Total Bilirubin (0.2-1.3) mg/dL AST (14-36) U/L ALT (9-52) U/L Alkaline Phosphatase (38-126) U/L Total Protein (6.3-8.2) g/dL Albumin (3.5-5.0) g/dL Urine Color Light Yellow Urine Appearance Cloudy H (Clear) Urine pH 6.0 (5.0-8.0) Ur Specific [place] 1.009 (1.001-1.035) Urine Protein Negative (Negative) Urine Glucose (UA) Negative (Negative) Urine Ketones Negative (Negative) Urine Blood Negative (Negative) Urine Nitrite Negative (Negative) Urine Bilirubin Negative (Negative) Urine Urobilinogen <2.0 (<2.0) mg/dL Ur Leukocyte Esterase Large H (Negative) Urine RBC 2 (0-5) /hpf Urine WBC 15 H (0-5) /hpf Ur Squamous Epith Cells 22 H (0-4) /hpf Urine Bacteria Occasional H (None) /hpf Urine Mucus Rare H (None) /hpf Urine HCG, Qual Not Detected (Not Detectd) - EKG Data -: EKG Interpreted by Me (and dr garcia) EKG Comments: Ventricular rate 89, NH interval 154, QRS 88, QT/QTC 360/438. Normal sinus rhythm, normal EKG. No concern for acute ischemia. Disposition Clinical Impression: Asthma exacerbation, Pleurisy Disposition: HOME SELF-CARE Condition: Stable Instructions (If sedation given, give patient instructions): Asthma (ED), Pleurisy (ED) Additional Instructions: Patient to adhere to previously discussed treatment plan and will take medication(s) as directed. Patient to follow up with PCP in 1-2 days. Patient to return to ED if symptoms do not improve. Please follow-up with primary care provider in 1-2 days. Please return to ER if condition worsens in any way. Please take prednisone for 5 days. Please use ibuprofen as needed for pleurisy. Please used breathing treatments as needed for shortness of breath/wheezing. Prescriptions: Ibuprofen [Motrin] 600 mg PO Q6HR PRN #40 day PRN Reason: Pain predniSONE 20 mg PO DIRECTED 5 Days #5 tab Albuterol Inhaler [Ventolin Hfa Inhaler] 1 - 2 puff INHALATION Q4-6H PRN #1 inhaler PRN Reason: Cough Albuterol Nebulized [Ventolin Nebulized] 2.5 mg INHALATION Q4H PRN 10 Days nebu PRN Reason: Cough Is patient prescribed a controlled substance at d/c from ED?: No Referrals: None,Stated [Primary Care Provider] - 1-2 days
[2018-10-17 13:15] LABS: Basophils % (A) 1 %; Eosinophils # (A) 0.5 k/uL (0-0.7); Eosinophils % (A) 7 %; HCT 43.8 % (34.0-46.0); HGB 13.3 gm/dL (11.4-16.0); Lymphocytes # (A) 1.6 k/uL (1.0-4.8); Lymphocytes % (A) 21 %; MCH 23.9 pg (25.0-35.0); MCHC 30.4 g/dL (31.0-37.0); MCV 78.7 fL (80.0-100.0); Mean Platelet Volume 7.1; Monocytes # (A) 0.7 k/uL (0-1.0); Monocytes % (A) 9 %; Neutrophils # (A) 4.4 k/uL (1.3-7.7); Neutrophils % (A) 60 %; Platelet Count 230 k/uL (150-450); RBC 5.57 m/uL (3.80-5.40); RDW 14.2 % (11.5-15.5); WBC 7.3 k/uL (3.8-10.6)
[2018-10-17 13:22] LABS: ALT 29 U/L (9-52); AST 22 U/L (14-36); Albumin 4.6 g/dL (3.5-5.0); Alkaline Phosphatase 102 U/L (38-126); Anion Gap 8 mmol/L; Blood Urea Nitrogen 19 mg/dL (7-17); Calcium 9.7 mg/dL (8.4-10.2); Carbon Dioxide 28 mmol/L (22-30); Chloride 104 mmol/L (98-107); Glucose 74 mg/dL (74-99); Potassium 4.2 mmol/L (3.5-5.1); Sodium 140 mmol/L (137-145); Total Bilirubin 0.5 mg/dL (0.2-1.3); Total Protein 7.2 g/dL (6.3-8.2)
--- NOTE | 2018-10-17 13:23 | XR ---
EXAMINATION TYPE: XR chest 2V DATE OF EXAM: 10/17/2018 COMPARISON: Chest x-ray March 28, 2017 HISTORY: Shortness of breath and chest pain. TECHNIQUE: Frontal and lateral views of the chest are obtained. FINDINGS: There is no focal air space opacity, pleural effusion, or pneumothorax seen. The cardiac silhouette size is within normal limits. The osseous structures are intact. IMPRESSION: No acute cardiopulmonary process on current study.
[2018-10-17 14:19] LABS: Appearance,Urine Cloudy (Clear); Bacteria,Urine Occasional /hpf; Bilirubin,Urine Negative (Negative); Blood,Urine Negative (Negative); Color,Urine Light Yellow; Glucose,Urine (UA) Negative (Negative); Ketones,Urine Negative (Negative); Leukocyte Esterase,Urine Large (Negative); Mucus,Urine Rare /hpf; Nitrite,Urine Negative (Negative); Protein,Urine Negative (Negative); RBC,Urine 2 /hpf (0-5); Specific Gravity,Urine 1.009 (1.001-1.035); Squamous Epithelial Cell,Urine 22 /hpf (0-4); Urobilinogen,Urine <2.0 mg/dL (<2.0); WBC,Urine 15 /hpf (0-5)
[2018-10-17 14:33] VITALS: BP 116/78; PULSE 96; RESP 18; TEMP 97.4
== END 2018-10-17 14:33 | disposition home or self-care (01) ==
LOC: EC 11:56
DX: J45.901 Unspecified asthma with (acute) exacerbation (principal); R09.1 Pleurisy; Z98.890 Other specified postprocedural states; Z88.1 Allergy status to other antibiotic agents; Z88.8 Allergy status to other drugs, medicaments and biological substances; Z91.018 Allergy to other foods; Z91.030 Bee allergy status
CPT/HCPCS: 36415; 71046; 80053; 81001; 81025; 85025; 85379; 93005; 94640; 96360; 96361; 99285

== ENCOUNTER 2019-10-14 11:58 | Emergency (ER) | payer OTHER ==
[2019-10-14 12:24] VITALS: RESP 18
--- NOTE | 2019-10-14 13:00 | XR ---
EXAMINATION TYPE: XR chest 2V DATE OF EXAM: 10/14/2019 COMPARISON: 10/17/2018 HISTORY: Asthma and shortness of breath TECHNIQUE: Frontal and lateral views of the chest are obtained. FINDINGS: The patient's braided hair overlies the medial chest bilaterally. There is no focal air sp minal opacity, pleural effusion, or pneumothorax seen. The cardiac silhouette size is within normal li mits. The osseous structures are intact. IMPRESSION: No acute cardiopulmonary process.
[2019-10-14] MEDS ORDERED: FAMOTIDINE 20 MG TAB PO STA (13:09)
[2019-10-14] MEDS ORDERED: predniSONE 50 MG TAB PO STA (13:09)
--- NOTE | 2019-10-14 13:16 | ED ---
URI HPI - General Chief Complaint: Upper Respiratory Infection Stated Complaint: sore throat/white spots & fever Time Seen by Provider: 10/14/19 12:28 Source: patient Mode of arrival: ambulatory Limitations: no limitations - History of Present Illness Initial Comments: Patient is 24-year-old female presenting to emergency Department with a chief complaint of a sore throat and ear pressure. States symptoms began about one week of sore throat. Patient reports no improvement in symptoms. Patient also reports she has developed a nonproductive cough. Does report occasional wheezing but she is an asthmatic. Patient does report using albuterol inhaler at home with minimal improvement. States the wheezing eat is worse at night along with a cough. Does report a fever at home which she was able to control with Tylenol or Motrin. Does report occasional shortness of breath along with wheezing. Denies any nausea vomiting chest pain back pain. Does report occasional headache after coughing fits. - Related Data Home Medications Medication Instructions Recorded Confirmed Albuterol Inhaler [Ventolin Hfa 1 - 2 puff INHALATION RT-Q6H PRN 10/17/18 10/17/18 Inhaler] Albuterol Nebulized [Ventolin 2.5 mg INHALATION RT-Q4H PRN 10/17/18 10/17/18 Nebulized] Previous Rx's Medication Instructions Recorded Albuterol Inhaler [Ventolin Hfa 1 - 2 puff INHALATION Q4-6H PRN #1 10/17/18 Inhaler] inhaler Albuterol Nebulized [Ventolin 2.5 mg INHALATION Q4H PRN 10 Days 10/17/18 Nebulized] nebu Ibuprofen [Motrin] 600 mg PO Q6HR PRN #40 day 10/17/18 predniSONE [Deltasone] 20 mg PO DIRECTED 5 Days #5 tab 10/17/18 predniSONE 50 mg PO DAILY #5 tab 10/14/19 Allergies Allergy/AdvReac Type Severity Reaction Status Date / Time bee pollen Allergy Severe Anaphylaxis Verified 10/14/19 12:15 walnut Allergy Severe Anaphylaxis Verified 10/14/19 12:15 latex Allergy Rash/Hives Verified 10/14/19 12:15 cephalexin [From Keflex] AdvReac Nausea & Verified 10/14/19 12:15 Vomiting & Diarrhea medroxyprogesterone acetate AdvReac Nausea & Verified 10/14/19 12:15 [From Depo-Provera] Vomiting Review of Systems ROS Statement: Those systems with pertinent positive or pertinent negative responses have been documented in the HPI. ROS Other: All systems not noted in ROS Statement are negative. Past Medical History Past Medical History: Asthma Additional Past Medical History / Comment(s): Current sinus infection, MISCARRIAGE, TMJ, pyelonephrits April 2017 History of Any Multi-Drug Resistant Organisms: None Reported Past Surgical History: Adenoidectomy, Ear Surgery, Tonsillectomy Additional Past Surgical History / Comment(s): ovarian cyst removed, D&C x2 Past Psychological History: No Psychological Hx Reported Smoking Status: Never smoker Past Alcohol Use History: None Reported Past Drug Use History: None Reported - Past Family History Mother Family Medical History: Skin Disorder Additional Family Medical History / Comment(s): Scleroderma, Morphea General Exam Limitations: no limitations General appearance: alert, in no apparent distress Head exam: Present: atraumatic, normocephalic, normal inspection Eye exam: Present: normal appearance, PERRL, EOMI Pupils: Present: normal accommodation ENT exam: Present: normal exam, normal oropharynx (Uvula midline. No tonsillar erythema or exudates.), mucous membranes moist, TM's normal bilaterally (Bilateral cerumen impaction), normal external ear exam Neck exam: Present: normal inspection, full ROM. Absent: lymphadenopathy Respiratory exam: Present: normal lung sounds bilaterally. Absent: respiratory distress, wheezes, rales Cardiovascular Exam: Present: regular rate, normal rhythm, normal heart sounds GI/Abdominal exam: Present: soft. Absent: distended, tenderness Extremities exam: Present: normal inspection, full ROM Back exam: Present: normal inspection, full ROM Neurological exam: Present: alert, oriented X3 Psychiatric exam: Present: normal affect, normal mood Skin exam: Present: warm, dry, intact, normal color Course Vital Signs 10/14/19 10/14/19 12:12 12:21 Temperature 97.7 F Pulse Rate 70 Respiratory 20 18 Rate Blood Pressure 118/75 O2 Sat by Pulse 100 Oximetry Medical Decision Making - Medical Decision Making patient is a 24-year-old female with history of asthma presenting to emergency Department with chief complaint of a cough. On exam patient is not in any respiratory distress or wheezing. Patient states her asthma symptoms are typically exacerbated during a fall. ENT examination is unremarkable. Vitals stable. Chest x-ray was unremarkable. I suspect the patient has an upper respiratory infection along with a mild exacerbation of asthma. Patient given prednisone and Pepcid in the ED. Patient will be discharged 5 day course of prednisone. Patient also advised to take [id number] Zyrtec to improve the sinus congestion. I counseled the patient for smoking cessation for greater than 3 minutes Return parameters were thoroughly discussed with patient was understanding and agreeable. Case discussed with physician. Disposition Clinical Impression: Upper respiratory tract infection, Asthma exacerbation, mild Disposition: HOME SELF-CARE Condition: Stable Instructions (If sedation given, give patient instructions): Upper Respiratory Infection (ED) Additional Instructions: Take prescribed medication as directed. Follow-up with primary care. Return to emergency department if symptoms worsen. Prescriptions: predniSONE 50 mg PO DAILY #5 tab Is patient prescribed a controlled substance at d/c from ED?: No Referrals: None,Stated [Primary Care Provider] - 1-2 days Time of Disposition: 13:15
[2019-10-14 13:27] VITALS: BP 106/66; PULSE 58; TEMP 98
== END 2019-10-14 13:37 | disposition home or self-care (01) ==
LOC: EC 11:58
DX: J45.901 Unspecified asthma with (acute) exacerbation (principal); J06.9 Acute upper respiratory infection, unspecified; Z79.899 Other long term (current) drug therapy; Z91.048 Other nonmedicinal substance allergy status; Z91.018 Allergy to other foods; Z91.040 Latex allergy status; Z88.1 Allergy status to other antibiotic agents; Z88.8 Allergy status to other drugs, medicaments and biological substances; Z98.890 Other specified postprocedural states
CPT/HCPCS: 71046; 99283; J7512